=== PATIENT | female | born 1955 | race Caucasian/White ===

== ENCOUNTER → 2016-03-11 | Outpatient (CLI) | payer MEDICARE, MEDICAID ==
[2016-03-11 13:50] LABS: FREE T4 1.43 NG/DL (0.76-1.46)
== END ==
LOC: M WUC 10:19
PROVIDERS: ATTEND Physician Assistant Medical
DX: E89.0 Postprocedural hypothyroidism (principal)

== ENCOUNTER → 2016-04-25 | Outpatient (CLI) | payer MEDICARE, MEDICAID ==
[2016-04-25 13:06] LABS: FREE T4 1.32 NG/DL (0.76-1.46)
== END ==
LOC: M WUC 09:55
PROVIDERS: ATTEND Physician Assistant Medical
DX: E89.0 Postprocedural hypothyroidism (principal)

== ENCOUNTER → 2016-06-10 | Outpatient (CLI) | payer MEDICARE, MEDICAID ==
[2016-06-10 18:37] LABS: THYROXINE (T4) 9.9 UG/DL (4.5-12.0)
== END ==
LOC: M WUC 11:31
PROVIDERS: ATTEND Physician Assistant Medical
DX: E89.0 Postprocedural hypothyroidism (principal)

== ENCOUNTER → 2016-07-26 | Outpatient (CLI) | payer MEDICARE, MEDICAID ==
[2016-07-26 13:05] LABS: ALBUMIN 4.2 GM/DL (3.2-5.2); ALBUMIN/GLOBULIN RATIO 1.35 (1.00-1.93); ALKALINE PHOSPHATASE 63 U/L (45-117); ALT/SGPT 40 U/L (12-78); ANION GAP 5 MEQ/L (8-16); AST/SGOT 23 U/L (15-37); BILIRUBIN,TOTAL 0.3 MG/DL (0.2-1.0); BLOOD UREA NITROGEN 10 MG/DL (7-18); CALCIUM LEVEL 8.9 MG/DL (8.5-10.1); CARBON DIOXIDE LEVEL 29 MEQ/L (21-32); CHLORIDE LEVEL 106 MEQ/L (98-107); CREATININE FOR GFR 0.71 MG/DL (0.55-1.02); GLOMERULAR FILTRATION RATE > 60.0 (>51); GLUCOSE, FASTING 137 MG/DL (70-105); POTASSIUM SERUM 4.2 MEQ/L (3.5-5.1); SODIUM LEVEL 140 MEQ/L (136-145); TOTAL PROTEIN 7.3 GM/DL (6.4-8.2)
== END ==
LOC: M WUC 09:37
PROVIDERS: ATTEND Nurse Practitioner Family
DX: E55.9 Vitamin D deficiency, unspecified (principal); E78.5 Hyperlipidemia, unspecified

== ENCOUNTER → 2016-10-04 | Outpatient (CLI) | payer MEDICARE, MEDICAID ==
[2016-10-04 13:53] LABS: FREE T4 1.42 NG/DL (0.76-1.46)
== END ==
LOC: M WUC 09:40
PROVIDERS: ATTEND Internal Medicine Endocrinology, Diabetes & Metabolism
DX: E89.0 Postprocedural hypothyroidism (principal)

== ENCOUNTER → 2017-03-05 | Outpatient (CLI) | payer MEDICARE, MEDICAID ==
[2017-03-05 18:33] LABS: FREE T4 1.16 NG/DL (0.76-1.46)
[2017-03-05 18:33] LABS: THYROID STIMULATING HORMONE 0.705 uIU/ML (0.358-3.740)
== END ==
LOC: M WUC 12:04
DX: E89.0 Postprocedural hypothyroidism (principal)
CPT/HCPCS: 84443

== ENCOUNTER → 2017-04-23 | Outpatient (CLI) | payer MEDICARE, MEDICAID | LOC: M WHC 09:55 | DX: Z12.31 Encounter for screening mammogram for malignant neoplasm of breast (principal) | CPT/HCPCS: 77067 ==

== ENCOUNTER → 2017-06-18 | Outpatient (CLI) | payer MEDICARE, MEDICAID ==
[2017-06-18 12:49] LABS: TOTAL 25(OH) VITAMIN D 13.7 NG/ML (30.0-100.0)
[2017-06-18 13:23] LABS: ALBUMIN 4.2 GM/DL (3.2-5.2); ALKALINE PHOSPHATASE 68 U/L (45-117); ALT/SGPT 31 U/L (12-78); ANION GAP 7 MEQ/L (8-16); AST/SGOT 15 U/L (7-37); BILIRUBIN,TOTAL 0.3 MG/DL (0.2-1.0); BLOOD UREA NITROGEN 11 MG/DL (7-18); CALCIUM LEVEL 8.7 MG/DL (8.8-10.2); CARBON DIOXIDE LEVEL 28 MEQ/L (21-32); CHLORIDE LEVEL 106 MEQ/L (98-107); CHOLESTEROL LEVEL 224 MG/DL (<200); CHOLESTEROL RISK RATIO 4.148 (<5); CREATININE FOR GFR 0.89 MG/DL (0.55-1.30); GLOMERULAR FILTRATION RATE > 60.0 (>45); GLUCOSE, FASTING 209 MG/DL (70-100); HDL CHOLESTEROL 54 MG/DL (>40); NON-HDL-C 170 MG/DL; POTASSIUM SERUM 4.7 MEQ/L (3.5-5.1); SODIUM LEVEL 141 MEQ/L (136-145); TOTAL PROTEIN 7.2 GM/DL (6.4-8.2); TRIGLYCERIDES LEVEL 275 MG/DL (<150)
== END ==
LOC: M WUC 10:12
DX: E78.5 Hyperlipidemia, unspecified (principal); E55.9 Vitamin D deficiency, unspecified
CPT/HCPCS: 80053

== ENCOUNTER → 2017-07-03 | Outpatient (CLI) | payer MEDICARE, MEDICAID ==
[2017-07-03 17:20] LABS: ANION GAP 6 MEQ/L (8-16); BLOOD UREA NITROGEN 13 MG/DL (7-18); CARBON DIOXIDE LEVEL 29 MEQ/L (21-32); CHLORIDE LEVEL 106 MEQ/L (98-107); GLOMERULAR FILTRATION RATE > 60.0 (>45); GLUCOSE, FASTING 114 MG/DL (70-100); POTASSIUM SERUM 4.6 MEQ/L (3.5-5.1); SODIUM LEVEL 141 MEQ/L (136-145)
[2017-07-03 17:27] LABS: ESTIMATED AVERAGE GLUCOSE 180 MG/DL (60-110); HEMOGLOBIN A1c 7.9 %
== END ==
LOC: M WUC 13:32
DX: R73.01 Impaired fasting glucose (principal)
CPT/HCPCS: 83036

== ENCOUNTER 2017-08-27 10:19 | Day surgery (SDC) | payer MEDICARE, MEDICAID ==
[~2017-08-27 10:19] MED LIST: LIDOCAINE 2% MDV 20 ML VIAL As Ordered; PROPOFOL 200 MG/20 ML VIAL As Ordered
[2017-08-27] MEDS: NS 1,000 ML IV (11:18)
[2017-08-27] MEDS ORDERED: PROPOFOL 200 MG/20 ML VIAL As Ordered (13:08)
== END 2017-08-27 13:55 | disposition home or self-care (01) ==
LOC: M OPP 10:19
DX: Z12.11 Encounter for screening for malignant neoplasm of colon (principal); K63.5 Polyp of colon; D12.3 Benign neoplasm of transverse colon; D12.2 Benign neoplasm of ascending colon; Z86.010 Personal history of colon polyps; K57.30 Diverticulosis of large intestine without perforation or abscess without bleeding; K44.9 Diaphragmatic hernia without obstruction or gangrene; K21.9 Gastro-esophageal reflux disease without esophagitis; E78.5 Hyperlipidemia, unspecified; E07.9 Disorder of thyroid, unspecified; F41.9 Anxiety disorder, unspecified; F32.9 Major depressive disorder, single episode, unspecified; R06.83 Snoring; M19.90 Unspecified osteoarthritis, unspecified site; H91.93 Unspecified hearing loss, bilateral; Z79.84 Long term (current) use of oral hypoglycemic drugs; Z79.899 Other long term (current) drug therapy; Z79.891 Long term (current) use of opiate analgesic; Z88.5 Allergy status to narcotic agent; Z87.891 Personal history of nicotine dependence; Z78.0 Asymptomatic menopausal state
CPT/HCPCS: 45385

== ENCOUNTER → 2017-09-01 | Outpatient (CLI) | payer MEDICARE, MEDICAID ==
[2017-09-01 13:48] LABS: THYROID STIMULATING HORMONE 0.701 uIU/ML (0.358-3.740)
[2017-09-01 13:48] LABS: FREE T4 1.27 NG/DL (0.76-1.46)
== END ==
LOC: M WUC 11:40
DX: E89.0 Postprocedural hypothyroidism (principal)
CPT/HCPCS: 84443

== ENCOUNTER → 2017-09-15 | Outpatient (CLI) | payer MEDICARE, MEDICAID ==
[2017-09-15 16:35] LABS: ALBUMIN 3.7 GM/DL (3.2-5.2); ALBUMIN/GLOBULIN RATIO 1.28 (1.00-1.93); ALKALINE PHOSPHATASE 47 U/L (45-117); ALT/SGPT 30 U/L (12-78); ANION GAP 5 MEQ/L (8-16); AST/SGOT 18 U/L (7-37); BILIRUBIN,TOTAL 0.2 MG/DL (0.2-1.0); BLOOD UREA NITROGEN 10 MG/DL (7-18); CALCIUM LEVEL 8.5 MG/DL (8.8-10.2); CARBON DIOXIDE LEVEL 31 MEQ/L (21-32); CHLORIDE LEVEL 107 MEQ/L (98-107); CREATININE FOR GFR 0.74 MG/DL (0.55-1.30); GLOMERULAR FILTRATION RATE > 60.0 (>45); GLUCOSE, FASTING 97 MG/DL (70-100); POTASSIUM SERUM 5.1 MEQ/L (3.5-5.1); SODIUM LEVEL 143 MEQ/L (136-145); TOTAL PROTEIN 6.6 GM/DL (6.4-8.2)
[2017-09-15 16:51] LABS: HEMATOCRIT 38.1 % (36.0-47.0); HEMOGLOBIN 12.5 g/dl (12.0-15.5); MEAN CORPUSCULAR HEMOGLOBIN 30.8 pg (27.0-33.0); MEAN CORPUSCULAR HGB CONC 32.8 g/dl (32.0-36.5); MEAN CORPUSCULAR VOLUME 93.8 fl (80.0-96.0); PLATELET COUNT, AUTOMATED 191 10^3/uL (150-450); RED BLOOD COUNT 4.06 10^6/uL (4.00-5.40); RED CELL DISTRIBUTION WIDTH 12.1 % (11.5-14.5)
[2017-09-15 17:08] LABS: MALB URINE SIEMENS 12.4 MG/L; MAU/CREAT RATIO 7.7 MCG/MG (0.0-30.0)
== END ==
LOC: M WUC 10:55
DX: R60.0 Localized edema (principal)
CPT/HCPCS: 80053

== ENCOUNTER → 2017-09-22 | Outpatient (REF) | payer MEDICARE, MEDICAID | LOC: M SFHCPLAZ 10:06 | DX: E11.9 Type 2 diabetes mellitus without complications (principal); Z53.8 Procedure and treatment not carried out for other reasons ==

== ENCOUNTER → 2017-09-22 | Outpatient (CLI) | payer MEDICARE, MEDICAID ==
[2017-09-22 16:49] LABS: ESTIMATED AVERAGE GLUCOSE 151 MG/DL (60-110); HEMOGLOBIN A1c 6.9 %
== END ==
LOC: M WUC 11:06
DX: E11.9 Type 2 diabetes mellitus without complications (principal); R05 Cough
CPT/HCPCS: 83036

== ENCOUNTER → 2017-10-01 | Outpatient (CLI) | payer MEDICARE, MEDICAID | LOC: M RAD 09:34 | DX: Z87.891 Personal history of nicotine dependence (principal); Z12.2 Encounter for screening for malignant neoplasm of respiratory organs | CPT/HCPCS: G0297 ==

== ENCOUNTER → 2017-12-25 | Outpatient (CLI) | payer MEDICARE, MEDICAID ==
[2017-12-25 17:45] LABS: ALBUMIN/GLOBULIN RATIO 1.48 (1.00-1.93); ALKALINE PHOSPHATASE 50 U/L (45-117); ALT/SGPT 32 U/L (12-78); ANION GAP 8 MEQ/L (8-16); AST/SGOT 30 U/L (7-37); BILIRUBIN,TOTAL 0.2 MG/DL (0.2-1.0); BLOOD UREA NITROGEN 12 MG/DL (7-18); CALCIUM LEVEL 9.2 MG/DL (8.8-10.2); CARBON DIOXIDE LEVEL 28 MEQ/L (21-32); CHLORIDE LEVEL 106 MEQ/L (98-107); CREATININE FOR GFR 0.83 MG/DL (0.55-1.30); GLOMERULAR FILTRATION RATE > 60.0 (>45); GLUCOSE, FASTING 133 MG/DL (70-100); SODIUM LEVEL 142 MEQ/L (136-145); TOTAL PROTEIN 6.7 GM/DL (6.4-8.2)
[2017-12-25 17:50] LABS: TOTAL 25(OH) VITAMIN D 18.7 NG/ML (30.0-100.0)
[2017-12-25 19:07] LABS: ESTIMATED AVERAGE GLUCOSE 134 MG/DL (60-110); HEMOGLOBIN A1c 6.3 %
== END ==
LOC: M WUC 14:18
DX: E78.5 Hyperlipidemia, unspecified (principal); E11.9 Type 2 diabetes mellitus without complications; E89.0 Postprocedural hypothyroidism; E55.9 Vitamin D deficiency, unspecified
CPT/HCPCS: 84443

== ENCOUNTER → 2018-03-30 | Outpatient (CLI) | payer MEDICARE, MEDICAID ==
[~2018-03-30] MED LIST changes: +DULO1CAP3 PO; +HYDR-4514 PO; +LEVO88TA3 PO; -LIDOCAINE 2% MDV 20 ML VIAL As Ordered; +METF500T13 PO; +OMEP20CA3 PO; -PROPOFOL 200 MG/20 ML VIAL As Ordered; +SIMV20TA2 PO; +TRAZ-163 PO
[2018-03-30 18:23] LABS: HEMOGLOBIN A1c 7.1 %
[2018-03-30 18:24] LABS: ALT/SGPT 23 U/L (12-78); BILIRUBIN,TOTAL 0.2 MG/DL (0.2-1.0); BLOOD UREA NITROGEN 9 MG/DL (7-18); CALCIUM LEVEL 8.6 MG/DL (8.8-10.2); CARBON DIOXIDE LEVEL 30 MEQ/L (21-32); CHLORIDE LEVEL 104 MEQ/L (98-107); CREATININE FOR GFR 0.75 MG/DL (0.55-1.30); GLOMERULAR FILTRATION RATE > 60.0 (>45); GLUCOSE, FASTING 87 MG/DL (70-100); POTASSIUM SERUM 4.7 MEQ/L (3.5-5.1); SODIUM LEVEL 141 MEQ/L (136-145); TOTAL 25(OH) VITAMIN D 35.2 NG/ML (30.0-100.0); TOTAL PROTEIN 6.8 GM/DL (6.4-8.2)
== END ==
LOC: M WUC 11:27
PROVIDERS: ATTEND Nurse Practitioner Family
DX: E89.0 Postprocedural hypothyroidism (principal); E11.9 Type 2 diabetes mellitus without complications; E78.5 Hyperlipidemia, unspecified

== ENCOUNTER → 2018-04-29 | Outpatient (CLI) | payer MEDICARE, MEDICAID ==
--- NOTE | 2018-04-29 13:25 | REP ---
Low-dose lung screening CT: Comparison is a 2017. The studies performed without IV contrast. The images are presented at lung windowing only. There is a 6 mm nodule peripherally in the right upper lobe on image 37, unchanged from the parents study. The lack of interval change converts this lesion to a category 2 lesion with the probability of malignancy less than 1%. There are no new lung nodules. There are no infiltrates. There are no pleural effusions. Impression: Category 2 low-dose lung screening chest CT. Probability of malignancy is less than 1%. Annual follow-up low-dose lung screening CT is recommended. Electronically Signed by Santos Rodrigez MD 04/29/2018 01:17 P
== END ==
LOC: M RAD 09:26
PROVIDERS: ATTEND Nurse Practitioner Family
DX: Z87.891 Personal history of nicotine dependence (principal)

== ENCOUNTER → 2018-05-13 | Outpatient (CLI) | payer MEDICARE, MEDICAID | LOC: M WUC 09:42 | PROVIDERS: ATTEND Nurse Practitioner Family | DX: E89.0 Postprocedural hypothyroidism (principal) ==

== ENCOUNTER → 2018-06-11 | Outpatient (REF) | payer MEDICARE, MEDICAID ==
[2018-06-13 15:08] LABS: HPV HYBRID CAPTURE II Negative (Negative)
== END ==
LOC: M SFHCWAGY 10:41
PROVIDERS: ATTEND Nurse Practitioner Women's Health
DX: Z12.4 Encounter for screening for malignant neoplasm of cervix (principal); N95.2 Postmenopausal atrophic vaginitis
CPT/HCPCS: 87624; G0123

== ENCOUNTER → 2018-06-11 | Outpatient (CLI) | payer MEDICARE, MEDICAID ==
--- NOTE | 2018-06-11 11:36 | REPMRS ---
Patient History The patient states she had a clinical breast exam in 05/2018. No known family history of cancer. 3D TOMOSYNTHESIS WAS PERFORMED. Digital Woman Screen Mammo: June 11, 2018 - Exam #: [id number] Bilateral CC and MLO view(s) were taken. Technologist: Salud Martinez, Technologist Prior study comparison: April 23, 2017, digital woman screen mammo performed at [facility]. January 09, 2016, digital woman screen mammo performed at [facility]. FINDINGS: There are scattered fibroglandular densities. There has been no change in the appearance of the mammogram from the prior studies. There is a mild amount of residual fibroglandular tissue which is fairly symmetric. There is no interval development of dominant mass, architectural distortion, or clustered microcalcification suggestive of malignancy. Assessment: BI-RADS/ACR category 1 mammogram. Negative Mammogram. Recommendation Routine screening mammogram in 1 year (for women over age 40). This mammogram was interpreted with the aid of an FDA-approved computer-aided dectection system. Electronically Signed By: Santos Ramos MD 06/11/18 [id number]
== END ==
LOC: M WHC 10:40
PROVIDERS: ATTEND Nurse Practitioner Family
DX: Z01.419 Encounter for gynecological examination (general) (routine) without abnormal findings (principal); Z12.31 Encounter for screening mammogram for malignant neoplasm of breast
CPT/HCPCS: 77063; 77067; 87624; G0101; G0123

== ENCOUNTER → 2018-06-22 | Outpatient (CLI) | payer MEDICARE, MEDICAID ==
[2018-06-22 17:27] LABS: ALBUMIN 3.6 GM/DL (3.2-5.2); ALT/SGPT 29 U/L (12-78); BILIRUBIN,TOTAL 0.5 MG/DL (0.2-1.0); BLOOD UREA NITROGEN 11 MG/DL (7-18); CALCIUM LEVEL 7.9 MG/DL (8.8-10.2); CARBON DIOXIDE LEVEL 29 MEQ/L (21-32); CHLORIDE LEVEL 106 MEQ/L (98-107); CHOLESTEROL LEVEL 193 MG/DL (<200); CHOLESTEROL RISK RATIO 3.112 (<5); CREATININE FOR GFR 0.72 MG/DL (0.55-1.30); GLOMERULAR FILTRATION RATE > 60.0 (>45); GLUCOSE, FASTING 87 MG/DL (70-100); HDL CHOLESTEROL 62 MG/DL (>40); LDL CHOLESTEROL 103 MG/DL (<100); NON-HDL-C 131 MG/DL; POTASSIUM SERUM 4.3 MEQ/L (3.5-5.1); SODIUM LEVEL 140 MEQ/L (136-145); TOTAL PROTEIN 6.8 GM/DL (6.4-8.2); TRIGLYCERIDES LEVEL 138 MG/DL (<150)
[2018-06-22 17:35] LABS: TOTAL 25(OH) VITAMIN D 24.1 NG/ML (30.0-100.0)
[2018-06-22 17:58] LABS: HEMOGLOBIN A1c 6.8 %
== END ==
LOC: M WUC 13:12
PROVIDERS: ATTEND Nurse Practitioner Family
DX: E11.9 Type 2 diabetes mellitus without complications (principal); E78.5 Hyperlipidemia, unspecified; E89.0 Postprocedural hypothyroidism; E55.9 Vitamin D deficiency, unspecified

== ENCOUNTER → 2018-06-24 | Outpatient (REF) | payer MEDICARE, MEDICAID ==
[2018-06-24 14:08] LABS: MAU/CREAT RATIO 13.5 MCG/MG (0.0-30.0)
== END ==
LOC: M LAB REF 12:33
PROVIDERS: ATTEND Nurse Practitioner Family
DX: E11.9 Type 2 diabetes mellitus without complications (principal); E78.5 Hyperlipidemia, unspecified; E89.0 Postprocedural hypothyroidism; E55.9 Vitamin D deficiency, unspecified

== ENCOUNTER 2018-08-20 11:19 | Emergency (ER) | payer MEDICARE, MEDICAID ==
[~2018-08-20] VITALS: Ht 154.9 cm; Wt 78.4 kg
[~2018-08-20 11:19] MED LIST changes: -DULO1CAP3 PO; +DULO1CAP6 PO; +OMEP1CAP73 PO; -OMEP20CA3 PO; -SIMV20TA2 PO; +SIMV20TA22 PO; -TRAZ-163 PO; +TRAZ-257 PO
[2018-08-20 12:00] LABS: BASO % 0.6 % (0.0-1.0); EOS # 0.1 10^3/uL (0.0-0.50); EOS % 1.7 % (0.0-3.0); HEMATOCRIT 39.9 % (36.0-47.0); HEMOGLOBIN 13.5 g/dl (12.0-15.5); LYMPH # 1.5 10^3/uL (1.5-4.5); LYMPH % 21.1 % (24.0-44.0); MEAN CORPUSCULAR HGB CONC 33.8 g/dl (32.0-36.5); MEAN CORPUSCULAR VOLUME 91.5 fl (80.0-96.0); MONO # 0.7 10^3/uL (0.0-0.8); NEUTROPHILS # 4.6 10^3/uL (1.8-7.7); NEUTROPHILS % 66.3 % (36.0-66.0); PLATELET COUNT, AUTOMATED 209 10^3/uL (150-450); RED BLOOD COUNT 4.36 10^6/uL (4.00-5.40); WHITE BLOOD COUNT 6.9 10^3/uL (4.0-10.0)
[2018-08-20] MEDS ORDERED: KETOROLAC 30 MG/ML VIAL (J1885) IV ONE (12:15)
[2018-08-20] MEDS ORDERED: ONDANSETRON 4MG/2ML VIAL (J2405) IV ONE (12:15)
[2018-08-20 12:30] LABS: ALBUMIN 4.2 GM/DL (3.2-5.2); BILIRUBIN,DIRECT 0.1 MG/DL (0.0-0.2); BILIRUBIN,TOTAL 0.3 MG/DL (0.2-1.0); CALCIUM LEVEL 9.1 MG/DL (8.8-10.2); CREATININE FOR GFR 1.06 MG/DL (0.55-1.30); GLOMERULAR FILTRATION RATE 56.1 (>45); TOTAL PROTEIN 7.2 GM/DL (6.4-8.2)
--- NOTE | 2018-08-20 12:43 | REP ---
Clinical: Left flank pain. Technique: Axial noncontrast images from the lung bases to the pubic symphysis with coronal and sagittal re-formations. Findings: Mild acute left-sided obstructive uropathy with perinephric stranding and hydroureteronephrosis secondary to a 3 mm obstructing calculus in the proximal ureter (images 75-76) at the mid L4 vertebral body level. The kidneys/ureters and bladder are otherwise unremarkable and without further nephroureterolithiasis. Liver, spleen, pancreas, gallbladder, and bilateral adrenal glands are normal. The enteric system is without obstruction or acute inflammatory process. Normal terminal ileum and appendix identified in the right lower quadrant. Pelvis demonstrates collapsed normal bladder and age-appropriate uterus/adnexa. No ascites. No free air. No adenopathy. Atherosclerotic changes to the aorta and vasculature noted. Skeletal structures demonstrate degenerative changes and prior right hip fixation. Impression: 1. Mild acute left-sided obstructive uropathy with a 3 mm calculus in the proximal/mid left ureter. No further urinary tract pathology appreciated. Electronically Signed by Jayme Lao MD 08/20/2018 12:35 P
[2018-08-20] MEDS ORDERED: ZOFR4TAB16 PO (12:52)
[2018-08-20 13:02] VITALS: BP 121/56
== END 2018-08-20 13:11 | disposition home or self-care (01) ==
LOC: M ED 11:19
DX: N21.1 Calculus in urethra (principal); E11.9 Type 2 diabetes mellitus without complications; Z87.891 Personal history of nicotine dependence; Z82.49 Family history of ischemic heart disease and other diseases of the circulatory system
CPT/HCPCS: 74176; 80048; 80076; 81001; 83690; 85025; 96374; 96375; 99284; J1885; J2405

== ENCOUNTER → 2018-10-22 | Outpatient (CLI) | payer MEDICARE, MEDICAID ==
[~2018-10-22] MED LIST changes: -OMEP1CAP73 PO; +OMEP20CA4 PO; +SIMV20TA2 PO; -SIMV20TA22 PO; +TRAZ-163 PO; -TRAZ-257 PO; +ZOFR4TAB16 PO
[2018-10-22 14:26] LABS: ALBUMIN 3.9 GM/DL (3.2-5.2); ALT/SGPT 23 U/L (12-78); BILIRUBIN,TOTAL 0.3 MG/DL (0.2-1.0); BLOOD UREA NITROGEN 11 MG/DL (7-18); CALCIUM LEVEL 9.2 MG/DL (8.8-10.2); CARBON DIOXIDE LEVEL 27 MEQ/L (21-32); CHLORIDE LEVEL 105 MEQ/L (98-107); CREATININE FOR GFR 0.72 MG/DL (0.55-1.30); GLOMERULAR FILTRATION RATE > 60.0 (>45); GLUCOSE, FASTING 80 MG/DL (70-100); POTASSIUM SERUM 4.5 MEQ/L (3.5-5.1); SODIUM LEVEL 140 MEQ/L (136-145); TOTAL 25(OH) VITAMIN D 27.5 NG/ML (30.0-100.0); TOTAL PROTEIN 6.9 GM/DL (6.4-8.2)
[2018-10-22 14:42] LABS: HEMOGLOBIN A1c 6.2 %
== END ==
LOC: M WUC 11:04
PROVIDERS: ATTEND Nurse Practitioner Family
DX: E11.9 Type 2 diabetes mellitus without complications (principal); E78.5 Hyperlipidemia, unspecified; E89.0 Postprocedural hypothyroidism; Z79.899 Other long term (current) drug therapy

== ENCOUNTER → 2018-12-09 | Outpatient (CLI) | payer MEDICARE, MEDICAID ==
[2018-12-09 12:08] LABS: HEMATOCRIT 38.7 % (36.0-47.0); HEMOGLOBIN 12.5 g/dl (12.0-15.5); MEAN CORPUSCULAR HEMOGLOBIN 31.3 pg (27.0-33.0); MEAN CORPUSCULAR HGB CONC 32.3 g/dl (32.0-36.5); MEAN CORPUSCULAR VOLUME 96.8 fl (80.0-96.0); PLATELET COUNT, AUTOMATED 213 10^3/uL (150-450); WHITE BLOOD COUNT 5.3 10^3/uL (4.0-10.0)
[2018-12-09 12:19] LABS: INR 0.94; PARTIAL THROMBOPLASTIN TIME 26.4 SECONDS (25.0-38.4); PROTHROMBIN TIME 12.2 SECONDS (11.8-14.0)
[2018-12-09 12:24] LABS: FREE T4 0.96 NG/DL (0.76-1.46); THYROID STIMULATING HORMONE 11.8 uIU/ML (0.358-3.740)
== END ==
LOC: M WUC 09:13
PROVIDERS: ATTEND Nurse Practitioner Family
DX: R23.8 Other skin changes (principal); E89.0 Postprocedural hypothyroidism

== ENCOUNTER → 2019-01-20 | Outpatient (CLI) | payer MEDICARE, MEDICAID ==
[~2019-01-20] MED LIST changes: -SIMV20TA2 PO; +SIMV20TA22 PO
--- NOTE | 2019-01-20 13:26 | REP ---
RENAL AND BLADDER ULTRASOUND: Real-time sonographic evaluation of the kidneys performed and demonstrates both kidneys to be normal in size and echotexture, right kidney measuring 10.9 x 5.2 x 4.7 cm and left kidney 11.0 x 4.6 x 5.3 cm. There is no right hydronephrosis. There appears to be mild left hydronephrosis. No renal mass is seen. Urinary bladder measures 8.0 x 8.8 x 6.3 cm for a total volume of 290 mL. Postvoid residual is 28 mL. Bilateral ureteral jets are seen in the urinary bladder with Doppler color evaluation. No bladder mass or calculus is seen. IMPRESSION: Mild left hydronephrosis appears similar to prior CT exam 08/20/2018. No renal or bladder stones seen. There are bilateral ureteral jets in the urinary bladder with Doppler color evaluation. Postvoid residual 9.6%, with mild residual after voiding. Electronically Signed by Santos Ramos MD 01/20/2019 01:58 P
--- NOTE | 2019-01-20 13:30 | REP ---
Clinical: Pelvic and bladder pain. Technique: Transabdominal pelvic ultrasound followed by transvaginal examination for better evaluation of the endometrium and adnexa. Findings: Bladder is normal and measures 9.0 x 11.4 x 6.5 cm. Heterogeneous anteverted uterus measures 4.2 x 2.0 x 3.2 cm. Endometrial complex measures 2 mm thickness. Small scattered echogenic myometrial foci are nonspecific and likely related to chronic change and small calcifications. No discrete uterine or endometrial abnormality otherwise noted. Ovaries not visualized. No pelvic fluid or adnexal mass lesion. Impression: Essentially age-appropriate uterus and bladder. Ovaries not visualized. Electronically Signed by Jayme Lao MD 01/20/2019 01:21 P
== END ==
LOC: M RAD 10:36
PROVIDERS: ATTEND Family Medicine
DX: N13.30 Unspecified hydronephrosis (principal); R10.2 Pelvic and perineal pain; Z87.442 Personal history of urinary calculi

== ENCOUNTER → 2019-01-27 | Outpatient (REF) | payer MEDICARE, MEDICAID ==
[~2019-01-27] MED LIST changes: +OMEP-172 PO; -OMEP20CA4 PO
[2019-01-27 13:19] LABS: APPEARANCE, URINE MANUAL CLEAR (CLEAR); COLOR, URINE MANUAL YELLOW (YELLOW)
[2019-01-27 13:20] LABS: BILIRUBIN, URINE MANUAL NEGATIVE (NEGATIVE); BLOOD URINE MANUAL NEGATIVE (NEGATIVE); GLUCOSE, URINE (UA) MANUAL NEGATIVE (NEGATIVE); KETONE, URINE MANUAL NEGATIVE (NEGATIVE); LEUKOCYTE ESTERASE, URINE MAN NEGATIVE (NEGATIVE); NITRITE, URINE MANUAL NEGATIVE (NEGATIVE); PROTEIN, URINE MANUAL NEGATIVE (NEGATIVE); UROBILINOGEN, URINE MANUAL NORMAL (NORMAL)
== END ==
LOC: M SMT 12:47
PROVIDERS: ATTEND Nurse Practitioner Women's Health
DX: N13.2 Hydronephrosis with renal and ureteral calculous obstruction (principal)
CPT/HCPCS: 81002; 87086; G0463

== ENCOUNTER → 2019-02-18 | Outpatient (REF) | payer MEDICARE, MEDICAID ==
[~2019-02-18] MED LIST changes: -OMEP-172 PO; +OMEP1CAP73 PO; -TRAZ-163 PO; +TRAZ-257 PO
[2019-02-18 14:27] LABS: ALBUMIN 3.8 GM/DL (3.2-5.2); ALT/SGPT 22 U/L (12-78); BILIRUBIN,TOTAL 0.2 MG/DL (0.2-1.0); BLOOD UREA NITROGEN 12 MG/DL (7-18); CALCIUM LEVEL 8.9 MG/DL (8.8-10.2); CARBON DIOXIDE LEVEL 29 MEQ/L (21-32); CHLORIDE LEVEL 106 MEQ/L (98-107); CREATININE FOR GFR 0.84 MG/DL (0.55-1.30); FREE T4 1.03 NG/DL (0.76-1.46); GLOMERULAR FILTRATION RATE > 60.0 (>45); GLUCOSE, FASTING 90 MG/DL (70-100); POTASSIUM SERUM 4.8 MEQ/L (3.5-5.1); SODIUM LEVEL 142 MEQ/L (136-145); TOTAL 25(OH) VITAMIN D 33.7 NG/ML (30.0-100.0)
[2019-02-18 14:42] LABS: HEMOGLOBIN A1c 6.4 %
[2019-02-18 14:48] LABS: MAU/CREAT RATIO 20.5 MCG/MG (0.0-30.0)
== END ==
LOC: M SFHCPLAZ 11:25
PROVIDERS: ATTEND Nurse Practitioner Family
DX: E11.9 Type 2 diabetes mellitus without complications (principal); E89.0 Postprocedural hypothyroidism; E55.9 Vitamin D deficiency, unspecified
CPT/HCPCS: 36415; 80053; 82043; 82306; 83036; 84439; 84443; G0463

== ENCOUNTER → 2019-03-05 | Outpatient (CLI) | payer MEDICARE, MEDICAID ==
--- NOTE | 2019-03-05 16:06 | REP ---
CT ABDOMEN AND PELVIS WITHOUT CONTRAST: CT abdomen and pelvis performed without oral or IV contrast. Sagittal and coronal reconstruction images are performed. COMPARISON: 08/20/2018. Visualized lung bases demonstrate no infiltrate. The liver, spleen, adrenals, pancreas and kidneys are grossly unremarkable. No renal or ureteral calculus is seen and there is no hydroureteronephrosis. Urinary bladder is very mildly distended with no gross calculus. There is mild atherosclerotic calcification of the abdominal aorta without aneurysm. No adenopathy is seen. There is no free air or free fluid. No bowel wall thickening is seen. The appendix is normal. Small calcified fibroadenoma is seen in the fundus of the uterus. No pelvic mass is seen. There is metallic internal fixation in the proximal right femur. The right femoral head demonstrates heterogeneous sclerotic and cystic change. There is fragmentation centrally of the femoral head. Findings are consistent with advanced avascular necrosis. There is severe arthritic change at the right hip joint with diffuse joint space narrowing, subchondral sclerosis and spurring. Mild arthritic change is seen at the left hip. There is a bone island in the lateral aspect of the left femoral head. IMPRESSION: No renal, ureteral or bladder calculus and no hydroureteronephrosis. Small calcified fibroid in the fundus of the uterus. Findings of the right femoral head compatible with advanced avascular necrosis, with fragmentation of the central aspect of the femoral head. Severe arthritic change at the right hip joint. Electronically Signed by Santos Ramos MD 03/10/2019 09:45 A
== END ==
LOC: M RAD 10:13
PROVIDERS: ATTEND Nurse Practitioner Women's Health
DX: N13.2 Hydronephrosis with renal and ureteral calculous obstruction (principal); D25.9 Leiomyoma of uterus, unspecified

== ENCOUNTER → 2019-05-03 | Outpatient (CLI) | payer MEDICARE, MEDICAID ==
--- NOTE | 2019-05-03 10:21 | REP ---
CT CHEST WITHOUT CONTRAST: LOW-DOSE SCREENING EXAM. HISTORY: Lung nodule. Comparison chest CT studies are reviewed from April 29 2018, October 01, 2017. CT FINDINGS: The previously noted right upper lobe nodule is again seen on page 34 of 101 in series 201 of today's study. This is unchanged from the prior study of October 01, 2017. It measures 5 mm in greatest diameter today. There is mild linear fibrosis in the lingula which is unchanged. No new pulmonary nodule is appreciated. IMPRESSION: Stable lung-RADS category [address] screening study recommended in 1 year. Electronically Signed by Dorian Sanchez MD 05/03/2019 12:35 P
== END ==
LOC: M RAD 09:40
PROVIDERS: ATTEND Nurse Practitioner Family
DX: R91.1 Solitary pulmonary nodule (principal); Z87.891 Personal history of nicotine dependence

== ENCOUNTER → 2019-05-18 | Outpatient (CLI) | payer MEDICARE, MEDICAID ==
[2019-05-18 10:48] LABS: BLOOD UREA NITROGEN 15 MG/DL (7-18); CALCIUM LEVEL 8.9 MG/DL (8.8-10.2); CARBON DIOXIDE LEVEL 29 MEQ/L (21-32); CHLORIDE LEVEL 105 MEQ/L (98-107); CREATININE FOR GFR 0.75 MG/DL (0.55-1.30); GLOMERULAR FILTRATION RATE > 60.0 (>45); GLUCOSE, FASTING 125 MG/DL (70-100); POTASSIUM SERUM 4.5 MEQ/L (3.5-5.1); SODIUM LEVEL 141 MEQ/L (136-145)
[2019-05-18 10:49] LABS: ALBUMIN 3.7 GM/DL (3.2-5.2); ALT/SGPT 25 U/L (12-78); BILIRUBIN,TOTAL 0.2 MG/DL (0.2-1.0); CHOLESTEROL LEVEL 212 MG/DL (<200); CHOLESTEROL RISK RATIO 3.261 (<5); FREE T4 1.07 NG/DL (0.76-1.46); HDL CHOLESTEROL 65 MG/DL (>40); LDL CHOLESTEROL 115 MG/DL (<100); NON-HDL-C 147 MG/DL; TOTAL PROTEIN 6.7 GM/DL (6.4-8.2); TRIGLYCERIDES LEVEL 160 MG/DL (<150)
[2019-05-18 10:51] LABS: TOTAL 25(OH) VITAMIN D 25.9 NG/ML (30.0-100.0)
[2019-05-18 10:53] LABS: HEMOGLOBIN A1c 6.5 %
== END ==
LOC: M WUC 08:28
PROVIDERS: ATTEND Nurse Practitioner Family
DX: E11.9 Type 2 diabetes mellitus without complications (principal); E78.5 Hyperlipidemia, unspecified; E89.0 Postprocedural hypothyroidism; E55.9 Vitamin D deficiency, unspecified; Z79.899 Other long term (current) drug therapy

== ENCOUNTER → 2019-06-22 | Outpatient (CLI) | payer MEDICARE, MEDICAID ==
[~2019-06-22] MED LIST changes: +K 10100T PO; +LEVO100T5 PO
== END ==
LOC: M LABSMTC 09:35
PROVIDERS: ATTEND Anesthesiology
DX: Z01.818 Encounter for other preprocedural examination (principal); Z11.59 Encounter for screening for other viral diseases

== ENCOUNTER 2019-06-25 06:08 | Day surgery (SDC) | payer MEDICARE, MEDICAID ==
[~2019-06-25] VITALS: Ht 152.4 cm; Wt 80.3 kg
[~2019-06-25 06:08] MED LIST changes: +LIDOCAINE 1% MDV 20ML VIAL SQ PRN
[2019-06-25] MEDS ORDERED: MIDAZOLAM INJ 2MG/2ML VIAL (J2250 PER 1MG) As Ordered ONE (06:56)
[2019-06-25] MEDS ORDERED: ONDANSETRON 4MG/2ML VIAL As Ordered ONE (06:57)
[2019-06-25] MEDS ORDERED: propofoL 200 MG/20 ML VIAL As Ordered ONE (06:57)
[2019-06-25] MEDS ORDERED: SUGAMMADEX SODIUM 500 MG/5 ML VIAL (BRIDION) As Ordered ONE (06:57)
[2019-06-25] MEDS ORDERED: dexameTHASONE 4 MG/ML 1ML VIAL (J1100 PER 1MG) As Ordered ONE (06:57)
[2019-06-25] MEDS ORDERED: ROCURONIUM BROMIDE 50 MG/5 ML VIAL As Ordered ONE ×2 (06:57→08:53)
[2019-06-25] MEDS ORDERED: LIDOCAINE 2% 100MG/5ML SDV (FOR ANES.) As Ordered ONE (06:57)
[2019-06-25] MEDS ORDERED: fentaNYL 100 MCG/2 ML INJECTION (J3010) As Ordered ONE ×4 (06:57→10:58)
[2019-06-25] MEDS ORDERED: LR 1,000 ML IV ONE (07:00)
[2019-06-25] MEDS ORDERED: ePHEDrine SULFATE 25 MG/5 ML(5MG/ML) SYRINGE As Ordered ONE (07:02)
[2019-06-25] MEDS ORDERED: PHENYLephrine HCL 500 MCG/5 ML (100MCG/ML) SYRINGE (J2370) As Ordered ONE (07:02)
[2019-06-25] MEDS ORDERED: ceFAZolin 1GM VIAL (J0690 PER 500MG) As Ordered ONE (07:10)
[2019-06-25] MEDS ORDERED: HYDROMORPHONE HCL 0.5 MG/ 0.5 ML SYRINGE (J1170 PER 1) IV PRN ×3 (07:15→10:30)
[2019-06-25] MEDS ORDERED: ceFAZolin SOD 2 GM in IV 1 EA IV ONE (07:15)
[2019-06-25] MEDS ORDERED: ACETAMINOPHEN 1000MG 100ML IV BTL (OFIRMEV) (J0131 PER 10MG) As Ordered ONE (08:15)
[2019-06-25] MEDS ORDERED: GLYCOPYRROLATE INJ 0.2 MG/ML 2 ML VIAL As Ordered ONE (08:43)
[2019-06-25] MEDS ORDERED: flumazeniL 0.5 MG/5 ML VIAL As Ordered ONE (09:52)
[2019-06-25] MEDS: fentaNYL 100 MCG/2 ML INJECTION (J3010) IV PRN ×6 (10:17→11:09)
[2019-06-25] MEDS: PERCOCET 5MG/325MG TAB PO PRN ×2 (10:27→11:15)
[2019-06-25] MEDS ORDERED: LR 1,000 ML IV SCH (10:30)
[2019-06-25] MEDS ORDERED: ONDANSETRON 4MG/2ML VIAL IV PRN (10:30)
--- NOTE | 2019-06-25 11:58 | REP ---
RIGHT HIP TWO VIEWS: Two views of the right hip performed. COMPARISON: 04/02/2012. There has been removal of the intramedullary carter and anchor from the right femur. There is no acute fracture or dislocation. There are severe arthritic changes at the right hip joint with moderate diffuse joint space narrowing and irregularity of the articulating surfaces. There is a moderate degree of subchondral sclerosis and cystic change as well as diffuse spurring. Metallic skin agustin are seen laterally. Electronically Signed by Santos Ramos MD 06/25/2019 01:41 P
[2019-06-25 14:26] VITALS: BP 122/63
--- NOTE | 2019-06-28 11:35 | RO ---
DATE OF PROCEDURE: 06/25/2019 PREOPERATIVE DIAGNOSES: 1. Retained cephalomedullary femoral nail, right femur. 2. Osteoarthritis of the right hip. POSTOPERATIVE DIAGNOSES: 1. Retained cephalomedullary femoral nail, right femur. 2. Osteoarthritis of the right hip. PROCEDURE: Removal of cephalomedullary femoral nail, right femur. SURGEON: Dr. Scotty Dent SLOTTER OPERATOR: WENDY Anglees ANESTHESIA: General endotracheal anesthesia. COMPLICATIONS: None. SPECIMENS: None. ESTIMATED BLOOD LOSS: 75 mL. DESCRIPTION OF PROCEDURE: Antibiotics were given intravenously, preoperatively. A spinal anesthetic was attempted but was unsuccessful; thus a general endotracheal tube anesthetic was established. Then, she was placed in a lateral decubitus position on a beanbag on the Liam table. The right hip was then carefully prepped and draped in the usual sterile fashion after appropriate time-out. We first addressed the proximal end of the nail by making a small incision through the previous scar using the Bovie cautery to coagulate crossing vessels down through the tensor fascia, then down to the gluteus medius, split that, then identified the identified the trochanter. We took some time to identify the tip of the nail because it was encased in bone. I used a combination of small and large rongeurs and Bovie cautery to eventually identify the tip of the nail proximally. The fibrous tissue from within the femoral nail was removed and there was bolt. I was able to thread in and remove the device. We then turned our attention to the cephalomedullary implant by making a small longitudinal incision through the previous scar more distally and laterally. Then, we used a Bovie cautery to coagulate the crossing vessels down through the tensor fascia, which was then divided. Then, we identified the end of the cephalomedullary implant. We cleaned the threads and removed all the fibrous tissue, and then the extractor device was threaded into position. Then, using the slap hammer there with some repeated blows gently it was removed. Next, we turned our attention to the distal interlock screws. The previous longitudinal incision was utilized distally. Bovie cautery was used to coagulate crossing vessels to the tensor fascia. Then, the two screws were identified and then removed sequentially. It did require quite a bit of force to unscrew the screws but eventually they were removed. We then turned our attention back to the proximal femur and made sure that the extraction device was inserted properly at its proper depth. Then, we applied the extension carter and then the slap hammer, and then with gentle successful blows eventually the carter was removed without difficulty. We copiously irrigated all the wounds several times, then closed the deep tensor fascia proximally with interrupted #1 PDS sutures. The tensor fascia was closed laterally of the cephalomedullary implanted incision with interrupted #1 PDS sutures as well as the tensor fascia distally. Once the tensor had been closed, the rest of the subdermal tissues were closed with interrupted #2-0 PDS and agustin were used to the skin covered by an Optifoam. She was then turned supine, then awakened from general endotracheal tube anesthesia after having tolerated the procedure well, then transferred to the to the recovery room in stable condition. There were no intraoperative complications. Ms. Kristin Luna was critical to the success of this difficult surgery by helping with appropriate soft tissue retraction, helped to manipulate the leg as needed, helped to close the wound, helped to position the patient amongst many other tasks to allow me to perform the operation smoothly, efficiently and safely.
== END 2019-06-25 16:10 | disposition home or self-care (01) ==
LOC: M SDC 06:08
PROVIDERS: ATTEND Orthopaedic Surgery
DX: Z47.2 Encounter for removal of internal fixation device (principal); K21.9 Gastro-esophageal reflux disease without esophagitis; E55.9 Vitamin D deficiency, unspecified; E78.5 Hyperlipidemia, unspecified; E89.0 Postprocedural hypothyroidism; E11.9 Type 2 diabetes mellitus without complications; L30.9 Dermatitis, unspecified; G89.29 Other chronic pain; G47.09 Other insomnia; Z79.84 Long term (current) use of oral hypoglycemic drugs; Z79.899 Other long term (current) drug therapy; Z87.891 Personal history of nicotine dependence; Z88.5 Allergy status to narcotic agent
CPT/HCPCS: 20680; 73502; J0131; J0690; J1100; J2250; J2370; J2405; J3010

== ENCOUNTER → 2019-08-17 | Outpatient (CLI) | payer MEDICARE, MEDICAID ==
[~2019-08-17] MED LIST changes: -LIDOCAINE 1% MDV 20ML VIAL SQ PRN
[2019-08-17 13:11] LABS: ALBUMIN 3.8 GM/DL (3.2-5.2); ALT/SGPT 28 U/L (12-78); BILIRUBIN,TOTAL 0.2 MG/DL (0.2-1.0); BLOOD UREA NITROGEN 11 MG/DL (7-18); CALCIUM LEVEL 8.7 MG/DL (8.8-10.2); CARBON DIOXIDE LEVEL 28 MEQ/L (21-32); CHLORIDE LEVEL 107 MEQ/L (98-107); CHOLESTEROL LEVEL 175 MG/DL (<200); CREATININE FOR GFR 0.69 MG/DL (0.55-1.30); GLOMERULAR FILTRATION RATE > 60.0 (>45); GLUCOSE, FASTING 88 MG/DL (70-100); HDL CHOLESTEROL 57 MG/DL (>40); LDL CHOLESTEROL 82 MG/DL (<100); NON-HDL-C 118 MG/DL; POTASSIUM SERUM 4.3 MEQ/L (3.5-5.1); SODIUM LEVEL 139 MEQ/L (136-145); TOTAL PROTEIN 6.8 GM/DL (6.4-8.2); TRIGLYCERIDES LEVEL 179 MG/DL (<150)
[2019-08-17 13:46] LABS: HEMOGLOBIN A1c 6.3 %
[2019-08-17 14:05] LABS: TOTAL 25(OH) VITAMIN D 47.7 NG/ML (30.0-100.0)
== END ==
LOC: M WUC 10:35
PROVIDERS: ATTEND Nurse Practitioner Family
DX: E11.9 Type 2 diabetes mellitus without complications (principal); G89.29 Other chronic pain; E78.5 Hyperlipidemia, unspecified; E55.9 Vitamin D deficiency, unspecified

== ENCOUNTER → 2019-12-01 | Outpatient (REF) | payer MEDICARE, MEDICAID ==
[~2019-12-01] MED LIST changes: +ALL10TAB3 PO
[2019-12-01 13:48] LABS: BASO % 0.5 % (0.0-1.0); EOS # 0.1 10^3/uL (0.0-0.5); EOS % 2.2 % (0.0-3.0); HEMATOCRIT 40.8 % (36.0-47.0); LYMPH # 1.8 10^3/uL (1.5-5.0); LYMPH % 28.8 % (24.0-44.0); MEAN CORPUSCULAR HGB CONC 31.9 g/dl (32.0-36.5); MONO # 0.7 10^3/uL (0.0-0.8); MONO % 10.4 % (0.0-5.0); NEUTROPHILS # 3.6 10^3/uL (1.5-8.5); NEUTROPHILS % 57.8 % (36.0-66.0); PLATELET COUNT, AUTOMATED 235 10^3/uL (150-450); RED BLOOD COUNT 4.34 10^6/uL (4.00-5.40); WHITE BLOOD COUNT 6.3 10^3/uL (4.0-10.0)
[2019-12-01 14:23] LABS: BLOOD UREA NITROGEN 11 MG/DL (7-18); CALCIUM LEVEL 9.2 MG/DL (8.8-10.2); CARBON DIOXIDE LEVEL 29 MEQ/L (21-32); CHLORIDE LEVEL 105 MEQ/L (98-107); CREATININE FOR GFR 0.88 MG/DL (0.55-1.30); FREE T4 1.06 NG/DL (0.76-1.46); GLOMERULAR FILTRATION RATE > 60.0 (>45); GLUCOSE, FASTING 104 MG/DL (70-100); POTASSIUM SERUM 5.2 MEQ/L (3.5-5.1); SODIUM LEVEL 138 MEQ/L (136-145)
== END ==
LOC: M SFHCPLAZ 11:38
PROVIDERS: ATTEND Nurse Practitioner Family
DX: R21 Rash and other nonspecific skin eruption (principal); E89.0 Postprocedural hypothyroidism
CPT/HCPCS: 36415; 80048; 84439; 84443; 85025; G0463

== ENCOUNTER → 2019-12-13 | Outpatient (CLI) | payer MEDICARE, MEDICAID ==
[~2019-12-13] MED LIST changes: +METF-877 PO; +OMEP40CA97 PO; +SIMV40TA20 PO; +VITA-145 PO
[2019-12-13 11:39] LABS: HEMATOCRIT 39.3 % (36.0-47.0); HEMOGLOBIN 12.6 g/dl (12.0-15.5); MEAN CORPUSCULAR HEMOGLOBIN 30.2 pg (27.0-33.0); MEAN CORPUSCULAR HGB CONC 32.1 g/dl (32.0-36.5); MEAN CORPUSCULAR VOLUME 94.2 fl (80.0-96.0); PLATELET COUNT, AUTOMATED 233 10^3/uL (150-450); RED BLOOD COUNT 4.17 10^6/uL (4.00-5.40); WHITE BLOOD COUNT 6.3 10^3/uL (4.0-10.0)
[2019-12-13 11:55] LABS: INR 0.89; PROTHROMBIN TIME 12.2 SECONDS (12.5-14.3)
[2019-12-13 12:12] LABS: ERYTHROCYTE SEDIMENTATION RATE 21 mm/hr (0-30)
[2019-12-13 12:18] LABS: ALBUMIN 4.1 GM/DL (3.2-5.2); ALT/SGPT 51 U/L (12-78); BILIRUBIN,TOTAL 0.3 MG/DL (0.2-1.0); BLOOD UREA NITROGEN 8 MG/DL (7-18); CALCIUM LEVEL 9.3 MG/DL (8.8-10.2); CARBON DIOXIDE LEVEL 28 MEQ/L (21-32); CHLORIDE LEVEL 105 MEQ/L (98-107); CREATININE FOR GFR 0.74 MG/DL (0.55-1.30); GLOMERULAR FILTRATION RATE > 60.0 (>45); GLUCOSE, FASTING 111 MG/DL (70-100); POTASSIUM SERUM 4.6 MEQ/L (3.5-5.1); SODIUM LEVEL 138 MEQ/L (136-145); TOTAL PROTEIN 7.1 GM/DL (6.4-8.2)
--- NOTE | 2019-12-13 13:34 | ECGEPIP ---
[facility] Test Date: 2019-12-13 Pat Name: CALEB COLLADO Department: Room: - Gender: Female Tank Charger: GLORIA : [id number] Requested By: Scotty Sanchez Order Number: [id number] Reading MD: Konrad Erickson Measurements Intervals Cosmos Rate: 61 P: 54 NM: 156 QRS: 53 QRSD: 92 T: 39 QT: 390 QTc: 394 Interpretive Statements SINUS RHYTHM, Poor R wave progression No prior ECG available for comparison at the time of interpretation. Electronically Signed on 12-13-2019 13:34:28 EDT by Konrad Erickson
--- NOTE | 2019-12-13 13:40 | REP ---
INDICATION: RIGHT HIP ARTHRITIS, PREOP. COMPARISON: Comparison radiographs September 22, 2017. TECHNIQUE: Two views.. FINDINGS: The lungs are well inflated and free of infiltrate. The pleural angles are sharp. The heart size is normal. Pulmonary vasculature is not increased. No significant bony abnormality is seen. There are degenerative changes in the thoracic spine. IMPRESSION: No active cardiopulmonary disease.. <Electronically signed by Harjinder Sanchez > 12/13/19 1532
== END ==
LOC: M LAB 11:02
PROVIDERS: ATTEND Orthopaedic Surgery
DX: Z01.818 Encounter for other preprocedural examination (principal); M16.11 Unilateral primary osteoarthritis, right hip

== ENCOUNTER → 2019-12-22 | Outpatient (CLI) | payer MEDICARE, MEDICAID | LOC: M LABSMTC 11:54 | PROVIDERS: ATTEND Anesthesiology | DX: Z01.818 Encounter for other preprocedural examination (principal) | CPT/HCPCS: C9803; U0003 ==

== ENCOUNTER 2019-12-27 06:04 | Inpatient (IN) | payer MEDICARE, MEDICAID ==
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
[~2019-12-27] VITALS: Ht 152.4 cm; Wt 80.7 kg
[~2019-12-27 06:04] MED LIST changes: +ACETAMINOPHEN 500 MG TAB PO ONE; -METF-877 PO; -OMEP40CA97 PO; -SIMV40TA20 PO; -VITA-145 PO; +ceFAZolin SOD 2 GM in IV 1 EA IV ONE
[2019-12-27] MEDS ORDERED: MIDAZOLAM INJ 2MG/2ML VIAL (J2250 PER 1MG) As Ordered ONE (06:51)
[2019-12-27] MEDS ORDERED: fentaNYL 100 MCG/2 ML INJECTION (J3010) As Ordered ONE (06:51)
[2019-12-27] MEDS ORDERED: propofoL 500 MG/50 ML VIAL As Ordered ONE (06:51)
[2019-12-27] MEDS ORDERED: LIDOCAINE 2% 100MG/5ML SDV (FOR ANES.) As Ordered ONE (06:54)
[2019-12-27] MEDS ORDERED: propofoL 200 MG/20 ML VIAL As Ordered ONE (06:55)
[2019-12-27] MEDS ORDERED: ceFAZolin 1GM VIAL (J0690 PER 500MG) As Ordered ONE (07:14)
[2019-12-27] MEDS ORDERED: TRANEXAMIC ACID 100 MG/ML 10ML VIAL As Ordered ONE (07:14)
[2019-12-27] MEDS ORDERED: PHENYLephrine HCL 500 MCG/5 ML (100MCG/ML) SYRINGE (J2370) As Ordered ONE (08:11)
[2019-12-27] MEDS ORDERED: ePHEDrine SULFATE 25 MG/5 ML(5MG/ML) SYRINGE As Ordered ONE (08:11)
[2019-12-27] MEDS ORDERED: GLYCOPYRROLATE INJ 0.2 MG/ML 2 ML VIAL As Ordered ONE (08:16)
[2019-12-27] MEDS ORDERED: METOCLOPRAMIDE INJ 10MG/2ML VIAL (J2765 PER 1) IV PRN (09:30)
[2019-12-27] MEDS ORDERED: LR 1,000 ML IV SCH ×2 (09:30→09:45)
[2019-12-27] MEDS ORDERED: ONDANSETRON 4MG/2ML VIAL IV PRN ×2 (09:30→09:45)
[2019-12-27] MEDS: PERCOCET 5MG/325MG TAB PO PRN ×4 (09:42→22:14)
--- NOTE | 2019-12-27 09:48 | REP ---
INDICATION: POST OP IN PACU. COMPARISON: 06/25/2019 TECHNIQUE: Two views, portable FINDINGS: Skin agustin are noted and there are changes of a right total hip arthroplasty. The 2 components are well aligned in relationship to the [place] bone and each other. There are posttraumatic changes of the femoral shaft below the femoral stem component from previous healed fracture. An intramedullary carter track is seen in the femur below the tip of the prosthesis. IMPRESSION: 1. Status post right total hip arthroplasty with the 2 components well aligned in relationship to each other and the [place] bone. <Electronically signed by Herberth Napier > 12/27/19 0970
[2019-12-27] MEDS: fentaNYL 100 MCG/2 ML INJECTION (J3010) IV PRN ×4 (09:57→10:28)
[2019-12-27] MEDS ORDERED: HYDROMORPHONE HCL 0.5 MG/ 0.5 ML SYRINGE (J1170 PER 1) As Ordered ONE (10:09)
[2019-12-27] MEDS ORDERED: ACETAMINOPHEN TAB 650MG DOSE (2X325MG) PO PRN (10:30)
[2019-12-27] MEDS ORDERED: PERCOCET 5MG/325MG TAB PO PRN (10:30)
[2019-12-27] MEDS ORDERED: HYDROMORPHONE HCL 0.5 MG/ 0.5 ML SYRINGE (J1170 PER 1) IV PRN ×2 (10:30→10:45)
[2019-12-27 11:00] VITALS: BP 123/54
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
[2019-12-27 11:30] VITALS: BP 124/64
[2019-12-27] MEDS: HYDROMORPHONE HCL 0.5 MG/ 0.5 ML SYRINGE (J1170 PER 1) IV PRN ×2 (11:55→18:39)
[2019-12-27] MEDS ORDERED: DEXTROSE 50% 50 ML SYRINGE IV PRN (12:00)
[2019-12-27] MEDS ORDERED: GLUCOSE 4GM CHEW TABLET PO PRN (12:00)
[2019-12-27] MEDS ORDERED: GLUCAGON INJ 1MG VIAL SC PRN (12:00)
[2019-12-27 12:30] VITALS: BP 133/71
[2019-12-27] MEDS: HumaLOG INSULIN (NovoLOG) PER UNIT SC SCH ×2 (12:39→17:46)
[2019-12-27] MEDS ORDERED: CelecoXIB 400 MG CAP PO ONE (13:00)
--- NOTE | 2019-12-27 13:24 | RO ---
DATE OF OPERATION: 12/27/2019 PREOPERATIVE DIAGNOSIS: Right hip degenerative arthritis, status post right femur fracture with intramedullary nail fixation and subsequent removal. POSTOPERATIVE DIAGNOSIS: Right hip degenerative arthritis, status post right femur fracture with intramedullary nail fixation and subsequent removal. PROCEDURE: Right total hip arthroplasty using a size 4 [place] stem with a 1.5 neck, 36 ball with 52 mm [place] cup with a neutral polyethylene liner. Prosthesis was made by [employer]. SURGEON: Scotty Dent MD MACHINE OPERATOR HAY STACKER: Kristin Luna ANESTHESIA: Spinal. COMPLICATIONS: None. ESTIMATED BLOOD LOSS: 200 mL. SPECIMENS: Femoral head. DESCRIPTION OF PROCEDURE: Antibiotics were given intravenously preoperatively and successful spinal anesthetic was induced. She was placed in the lateral decubitus position. The [place] hip positioner was utilized, down leg well padded and the axillary roll utilized. The right hip area was carefully prepped and draped in the usual sterile fashion. After appropriate timeout, a longitudinal incision was made for a direct lateral approach to the hip. Bovie cautery was used to coagulate crossing vessels down to the tensor fascia which was then divided in line with a skin through the previous scar bed. The gluteus medius was split in the anterior one-third, posterior two-thirds junction proximally and then down to the underlying gluteus minimus, and then we carefully dissected off the proximal femur distally as we externally rotated the hip, and then eventually dislocated anteriorly and placed the leg into the leg bag. Piriformis fossa was identified. Scar tissue removed from the prior surgery. Starter reamer was placed followed by the canal-finding reamer and then the lateralizing reamer and then we reamed up to a size 4. The femoral canal was surprisingly tight despite the x-rays. But, we had to use the reamers to help open up some of the marbleized bone to get down to good bleeding bone for better press-fit fixation. It felt reasonable after broaching beginning with a size 2 that the [place] stem actually would fit nicely with good proximal fit and fill with good stability; thus, we did not feel I needed to use the AML or the solution-type stem. I determined that after performing the femoral neck osteotomy using the jig. The #4 broach actually fit quite nicely; it did not seat fully but we were less than a fingerbreadth above the lesser trochanter and I felt this was appropriate. I felt that this stem would give her good fixation and stability. Thus, I removed the broach and then we exposed the acetabulum, performed a labral excision 360 degrees and then began reaming beginning at 47, advanced to 51. The trial 52 fit nicely using extramedullary guide to set our version and abduction. We copiously irrigated and then placed the real [place] cup; central hole eliminator placed, polyethylene placed after copious irrigation and we made sure it was seated properly. There was a large anterior osteophyte which was removed with an osteotome. I then irrigated out the femoral canal thoroughly, placed the #4 broach once again, trialed with a 1.5 neck with a 36 ball and the hip was very stable to flexion internal rotation and extension external rotation with minimal soft tissue telescoping; thus, I did not think I needed to change that construct. This seemed to be the appropriate one. I removed the trial, copiously irrigated out the femoral canal again, placed the real #4 [place] stem; it seated back to where we were with the broach, dried the trunnion, placed the real head with a 1.5 neck and then reduced the hip after irrigating once again. We then meticulously closed the gluteus minimus and then the medius back in layers to the trochanter with interrupted #1 PDS sutures, irrigating between layers. Tranexamic acid was instilled into the wound and then we closed the tensor fascia using a combination of #1 PDS sutures and a running #1 STRATAFIX and then the deep subdermal tissues were closed with interrupted 2-0 PDS sutures and skin was closed with agustin covered by an Optifoam dressing and a dry sterile bulky dressing. Then, she was turned supine and transferred to the recovery room in stable condition. There were no intraoperative complications. Kristinbrittany Luna was critical to the success of this difficult surgery by helping with the appropriate soft tissue retraction, helped to prepare the patient, helped to close the wound, helped to place the leg in a leg bag and dislocate and relocate the hip several times throughout the surgery to help me perform the operation smoothly, efficiently, and safely. SLICK
[2019-12-27 13:30] VITALS: BP 133/70
[2019-12-27] MEDS ORDERED: OMEP40CA97 PO (13:58)
[2019-12-27] MEDS ORDERED: METF-877 PO (13:58)
[2019-12-27] MEDS ORDERED: SIMV40TA20 PO (13:58)
[2019-12-27] MEDS ORDERED: VITA-145 PO (13:58)
[2019-12-27 14:30] VITALS: BP 130/71
[2019-12-27] MEDS: DULoxetine 30 MG CAP (CYMBALTA) PO SCH (14:30)
[2019-12-27] MEDS: OMEPRAZOLE 20 MG CAP PO SCH (14:30)
[2019-12-27] MEDS: ceFAZolin SOD 2 GM in IV 1 EA IV SCH (16:01)
[2019-12-27] MEDS ORDERED: traZODone 100 MG TAB PO SCH (21:00)
[2019-12-27] MEDS ORDERED: HumaLOG INSULIN (NovoLOG) PER UNIT SC SCH (21:00)
[2019-12-27 22:00] VITALS: BP 156/60
[2019-12-27] MEDS: ASPIRIN 81 MG CHEW TABLET PO SCH (22:14)
[2019-12-28] MEDS: ceFAZolin SOD 2 GM in IV 1 EA IV SCH ×2 (00:12→08:43)
[2019-12-28] MEDS: HYDROMORPHONE HCL 0.5 MG/ 0.5 ML SYRINGE (J1170 PER 1) IV PRN (02:29)
[2019-12-28 06:00] VITALS: BP 115/45
[2019-12-28] MEDS: PERCOCET 5MG/325MG TAB PO PRN (06:56)
[2019-12-28] MEDS ORDERED: PERC5TAB12 PO (07:14)
[2019-12-28] MEDS ORDERED: ECOT81TA5 PO ×2 (07:14→11:18)
[2019-12-28 07:59] LABS: HEMATOCRIT 33.6 % (36.0-47.0); HEMOGLOBIN 10.5 g/dl (12.0-15.5); MEAN CORPUSCULAR HEMOGLOBIN 30.5 pg (27.0-33.0); MEAN CORPUSCULAR HGB CONC 31.3 g/dl (32.0-36.5); MEAN CORPUSCULAR VOLUME 97.7 fl (80.0-96.0); PLATELET COUNT, AUTOMATED 174 10^3/uL (150-450); RED BLOOD COUNT 3.44 10^6/uL (4.00-5.40); WHITE BLOOD COUNT 8.2 10^3/uL (4.0-10.0)
[2019-12-28 08:21] LABS: ALT/SGPT 23 U/L (12-78); BILIRUBIN,TOTAL 0.2 MG/DL (0.2-1.0); BLOOD UREA NITROGEN 11 MG/DL (7-18); CALCIUM LEVEL 8.2 MG/DL (8.8-10.2); CARBON DIOXIDE LEVEL 30 MEQ/L (21-32); CHLORIDE LEVEL 105 MEQ/L (98-107); CREATININE FOR GFR 0.72 MG/DL (0.55-1.30); GLOMERULAR FILTRATION RATE > 60.0 (>45); GLUCOSE, FASTING 165 MG/DL (70-100); POTASSIUM SERUM 3.9 MEQ/L (3.5-5.1); SODIUM LEVEL 140 MEQ/L (136-145); TOTAL PROTEIN 5.9 GM/DL (6.4-8.2)
[2019-12-28] MEDS: DULoxetine 30 MG CAP (CYMBALTA) PO SCH (08:43)
[2019-12-28] MEDS: OMEPRAZOLE 20 MG CAP PO SCH (08:43)
[2019-12-28] MEDS: ASPIRIN 81 MG CHEW TABLET PO SCH (08:43)
[2019-12-28] MEDS: HumaLOG INSULIN (NovoLOG) PER UNIT SC SCH ×2 (08:44→11:44)
[2019-12-28] MEDS ORDERED: MIRALAX *UNIT DOSE* 17GM PACKET PO SCH (09:00)
[2019-12-28] MEDS ORDERED: LEVOTHYROXINE 100MCG TABLET (0.1MG) PO SCH (09:00)
[2019-12-28] MEDS ORDERED: MOM 30ML SUSPENSION UDC PO SCH (09:00)
[2019-12-28 10:00] VITALS: BP 134/72
[2019-12-28] MEDS ORDERED: SIMVASTATIN 40 MG TAB PO SCH (21:00)
--- NOTE | 2019-12-31 14:04 | DS ---
DATE OF ADMISSION: 12/27/2019 DATE OF DISCHARGE: 12/28/2019 ATTENDING: Scotty Dent M.D. ADMITTING DIAGNOSIS: Osteoarthritis right hip status post right femur fracture with IM nail fixation and subsequent removal. OTHER DIAGNOSES: Include: * Diabetes. * Hyperlipidemia. * gastric reflux disease. * Vitamin D deficiency. * hearing loss. * osteopenia. * Hypothyroidism. * Aortic valve stenosis. DISCHARGE DIAGNOSES: * Osteoarthritis right hip status post right femur fracture with IM nail fixation and subsequent removal. * Status post right total hip arthroplasty. HISTORY: This is a 64-year-old female patient with progressively worsening hip pain and osteoarthritis in the right hip. This patient had a prior ORIF of her hip fracture. She had the hardware removed first and then presented for the hip replacement. She was admitted for elective hip replacement on the right side. OPERATION PERFORMED: Right total hip arthroplasty. HOSPITAL COURSE: The patient was admitted on the day of surgery and underwent the right total hip arthroplasty which was uneventful. She did well in the post- operative period and her hospital course was without complications. She was up with physical therapy per their protocol and her pain was controlled. On the day of discharge she was weightbearing as tolerated on the right lower extremity. She will use aspirin 81 mg twice a day and Wade stockings for DVT prophylaxis per the protocol. She will resume her pre-operative medications and diet. She was given instructions to include, but not limited to wound monitoring and activity limitations. She will follow up in our office in 10-14 days for a surgical follow up. Please refer to the medical record for further details. SLICK
== END 2019-12-28 12:15 | disposition home health service (06) | DRG 470 ==
LOC: M OR 06:04 → M MS5PR 10:50
PROVIDERS: ADMIT Orthopaedic Surgery; ATTEND Orthopaedic Surgery
PROC: 0SR902Z Replacement of Right Hip Joint with Metal on Polyethylene Synthetic Substitute, Open Approach (ICD-10-PCS; principal; 2019-12-27 07:30)
DX: M16.11 Unilateral primary osteoarthritis, right hip (principal); E11.9 Type 2 diabetes mellitus without complications; E78.5 Hyperlipidemia, unspecified; K21.9 Gastro-esophageal reflux disease without esophagitis; E55.9 Vitamin D deficiency, unspecified; H91.93 Unspecified hearing loss, bilateral; R26.89 Other abnormalities of gait and mobility; M85.80 Other specified disorders of bone density and structure, unspecified site; E03.9 Hypothyroidism, unspecified; G89.29 Other chronic pain; I35.8 Other nonrheumatic aortic valve disorders; Z87.891 Personal history of nicotine dependence; Z79.84 Long term (current) use of oral hypoglycemic drugs; Z79.891 Long term (current) use of opiate analgesic; Z79.899 Other long term (current) drug therapy; Z88.5 Allergy status to narcotic agent; Z87.81 Personal history of (healed) traumatic fracture

== ENCOUNTER → 2020-03-13 | Outpatient (CLI) | payer MEDICARE, MEDICAID ==
[~2020-03-13] MED LIST changes: -ACETAMINOPHEN 500 MG TAB PO ONE; +ECOT81TA5 PO; +METF-877 PO; +OMEP40CA97 PO; +PERC5TAB12 PO; +SIMV40TA20 PO; +VITAD1000T PO; -ceFAZolin SOD 2 GM in IV 1 EA IV ONE
[2020-03-13 12:15] LABS: HEMOGLOBIN A1c 6.1 %
[2020-03-13 12:37] LABS: MALB URINE SIEMENS 23.4 MG/L; MAU/CREAT RATIO 9.6 MCG/MG (0.0-30.0)
[2020-03-13 12:39] LABS: ALBUMIN 3.8 GM/DL (3.2-5.2); ALT/SGPT 26 U/L (12-78); BILIRUBIN,TOTAL 0.3 MG/DL (0.2-1.0); BLOOD UREA NITROGEN 15 MG/DL (7-18); CALCIUM LEVEL 9.2 MG/DL (8.8-10.2); CARBON DIOXIDE LEVEL 29 MEQ/L (21-32); CHLORIDE LEVEL 104 MEQ/L (98-107); CHOLESTEROL LEVEL 182 MG/DL (<200); CHOLESTEROL RISK RATIO 2.716 (<5); CREATININE FOR GFR 0.79 MG/DL (0.55-1.30); FREE T4 1.19 NG/DL (0.76-1.46); GLOMERULAR FILTRATION RATE > 60.0 (>45); GLUCOSE, FASTING 112 MG/DL (70-100); HDL CHOLESTEROL 67 MG/DL (>40); LDL CHOLESTEROL 87 MG/DL (<100); NON-HDL-C 115 MG/DL; POTASSIUM SERUM 4.5 MEQ/L (3.5-5.1); SODIUM LEVEL 140 MEQ/L (136-145); TOTAL 25(OH) VITAMIN D 39.9 NG/ML (30.0-100.0); TOTAL PROTEIN 6.9 GM/DL (6.4-8.2); TRIGLYCERIDES LEVEL 140 MG/DL (<150)
== END ==
LOC: M WUC 10:12
PROVIDERS: ATTEND Nurse Practitioner Family
DX: E89.0 Postprocedural hypothyroidism (principal); E11.9 Type 2 diabetes mellitus without complications; E78.5 Hyperlipidemia, unspecified; E55.9 Vitamin D deficiency, unspecified; Z79.899 Other long term (current) drug therapy

== ENCOUNTER → 2020-05-10 | Outpatient (CLI) | payer MEDICARE, MEDICAID ==
--- NOTE | 2020-05-10 13:20 | REP ---
INDICATION: LUNG NODULE. COMPARISON: Low-dose lung screening chest CT studies dated 10/01/2017 and 05/03/2019. TECHNIQUE: The study is performed without IV contrast. Images are presented at lung windowing only. FINDINGS: There is a stable 5 mm right upper lobe lung nodule on image 36, unchanged from both prior studies. There are no new lung nodules or masses. There are no infiltrates or pleural effusions. IMPRESSION: Category 2 low-dose lung screening CT of the chest. The probability of malignancy is less than 1%. Depending on risk factors consider continued follow-up annual low-dose lung screening chest CT. <Electronically signed by Santos Rodrigez > 05/10/20 0545
== END ==
LOC: M RAD 10:18
PROVIDERS: ATTEND Nurse Practitioner Family
DX: Z12.2 Encounter for screening for malignant neoplasm of respiratory organs (principal); R91.1 Solitary pulmonary nodule

== ENCOUNTER → 2020-05-19 | Outpatient (CLI) | payer MEDICARE, MEDICAID ==
[2020-05-19 14:05] LABS: BLOOD UREA NITROGEN 13 MG/DL (7-18); CALCIUM LEVEL 9.3 MG/DL (8.8-10.2); CARBON DIOXIDE LEVEL 29 MEQ/L (21-32); CHLORIDE LEVEL 105 MEQ/L (98-107); CREATININE FOR GFR 0.65 MG/DL (0.55-1.30); FREE T4 1.16 NG/DL (0.76-1.46); GLOMERULAR FILTRATION RATE > 60.0 (>45); GLUCOSE, FASTING 147 MG/DL (70-100); POTASSIUM SERUM 4.3 MEQ/L (3.5-5.1); SODIUM LEVEL 140 MEQ/L (136-145); THYROID STIMULATING HORMONE 0.091 uIU/ML (0.358-3.740)
[2020-05-19 14:31] LABS: HEMOGLOBIN A1c 6.7 %
== END ==
LOC: M WUC 10:02
PROVIDERS: ATTEND Nurse Practitioner Family
DX: E11.9 Type 2 diabetes mellitus without complications (principal); E89.0 Postprocedural hypothyroidism

== ENCOUNTER → 2020-08-03 | Outpatient (REF) | payer MEDICARE, MEDICAID ==
[~2020-08-03] MED LIST changes: +OMEP40CA4 PO; -OMEP40CA97 PO
[2020-08-03 14:12] LABS: BLOOD UREA NITROGEN 12 MG/DL (7-18); CALCIUM LEVEL 8.9 MG/DL (8.8-10.2); CARBON DIOXIDE LEVEL 30 MEQ/L (21-32); CHLORIDE LEVEL 107 MEQ/L (98-107); FREE T4 1.02 NG/DL (0.76-1.46); GLOMERULAR FILTRATION RATE > 60.0 (>45); GLUCOSE, FASTING 158 MG/DL (70-100); POTASSIUM SERUM 4.9 MEQ/L (3.5-5.1); SODIUM LEVEL 141 MEQ/L (136-145)
[2020-08-03 14:16] LABS: HEMOGLOBIN A1c 7.1 %
== END ==
LOC: M SFHCPLAZ 10:49
PROVIDERS: ATTEND Nurse Practitioner Family
DX: E89.0 Postprocedural hypothyroidism (principal); E11.9 Type 2 diabetes mellitus without complications
CPT/HCPCS: 36415; 80048; 83036; 84439; 84443; G0463

== ENCOUNTER → 2020-11-20 | Outpatient (CLI) | payer MEDICARE, MEDICAID ==
[2020-11-20 14:00] LABS: ALBUMIN 3.9 GM/DL (3.2-5.2); ALT/SGPT 26 U/L (12-78); BILIRUBIN,TOTAL 0.3 MG/DL (0.2-1.0); BLOOD UREA NITROGEN 10 MG/DL (7-18); CALCIUM LEVEL 8.9 MG/DL (8.8-10.2); CARBON DIOXIDE LEVEL 29 MEQ/L (21-32); CHLORIDE LEVEL 106 MEQ/L (98-107); CHOLESTEROL LEVEL 185 MG/DL (<200); CHOLESTEROL RISK RATIO 3.425 (<5); CREATININE FOR GFR 0.87 MG/DL (0.55-1.30); FREE T4 0.88 NG/DL (0.76-1.46); GLOMERULAR FILTRATION RATE > 60.0 (>45); GLUCOSE, FASTING 119 MG/DL (70-100); HDL CHOLESTEROL 54 MG/DL (>40); LDL CHOLESTEROL 91 MG/DL (<100); NON-HDL-C 131 MG/DL; POTASSIUM SERUM 4.2 MEQ/L (3.5-5.1); SODIUM LEVEL 140 MEQ/L (136-145); TOTAL 25(OH) VITAMIN D 41.9 NG/ML (30.0-100.0); TOTAL PROTEIN 7.1 GM/DL (6.4-8.2); TRIGLYCERIDES LEVEL 200 MG/DL (<150)
[2020-11-20 14:06] LABS: HEMOGLOBIN A1c 6.8 %
[2020-11-20 14:10] LABS: MALB URINE SIEMENS 84.5 MG/L; MAU/CREAT RATIO 23.1 MCG/MG (0.0-30.0)
== END ==
LOC: M WUC 10:44
PROVIDERS: ATTEND Nurse Practitioner Family
DX: E11.9 Type 2 diabetes mellitus without complications (principal); E78.5 Hyperlipidemia, unspecified; E55.9 Vitamin D deficiency, unspecified; Z79.891 Long term (current) use of opiate analgesic

== ENCOUNTER → 2020-12-16 | Outpatient (CLI) | payer MEDICARE, MEDICAID ==
[~2020-12-16] MED LIST changes: +SYNT88TA2 PO
== END ==
LOC: M LABSMTC 10:43
PROVIDERS: ATTEND Anesthesiology
DX: Z01.812 Encounter for preprocedural laboratory examination (principal); Z20.822 Contact with and (suspected) exposure to COVID-19

== ENCOUNTER 2020-12-20 12:20 | Day surgery (SDC) | payer MEDICARE, MEDICAID ==
[~2020-12-20] VITALS: Ht 152.4 cm; Wt 81.1 kg
[~2020-12-20 12:20] MED LIST changes: +NS 1,000 ML IV ONE
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
--- OUTSIDE RECORDS SUMMARY | 2020-12-20 12:26 | CCD ---
Author Author [facility] Organization [facility] Address Unknown Phone Unavailable Care Team Providers Care Media Operator Name Role Phone Sara Blanco Unavailable PROBLEMS Type Condition ICD9-CM Code [id number] Code Onset Dates Condition S tatus W/U Status Risk SNOMED Code Notes Problem Vitamin D deficiency, unspecified E55.9 Active con firmed 94182036 Problem Hyperlipidemia, unspecified E78.5 Active confirmed 87029651 Problem Other insomnia G47.09 Active confirmed 99360 2001 Problem Graves disease E05.00 Active confirmed 29619 5004 Problem Depression with anxiety F41.8 Active confirmed 469906344 Problem Ureteral stone with hydronephrosis N13.2 Activ e confirmed 184277728 Problem Other chronic pain G89.29 Active confirmed 8 5255492 Problem Unilateral primary osteoarthritis, right hip M16.1 1 Active confirmed 651625435504713 Problem Gastro-esophageal reflux disease without esophagitis K21.9 Active confirmed 763541343 Problem Obesity (BMI 30-39.9) E66.9 Active confirmed 561880636 Problem Type 2 diabetes mellitus wit hout complication, without long-term current use of insulin E11.9 Active confirmed 498413436 Problem Postprocedural hypothyroidism E89.0 Active confirm ed 54740981 Problem Lung nodule R91.1 Active confirmed 74613287 2 ALLERGIES Allergen (clinical drug ingredient) Drug/Non Drug Allergy do cumented on EMR Reaction Allergy Type Onset Date Status morphine Morphine Sulfate([facility] Code:[address]-60) intense headaches Drug Allergy Active ENCOUNTERS from 1955 to 2020-11-17 Encounter Location Date Provider Diagnosis [facility] Walter [address] [facility] [phone] [place] [address] Nov, Sara Deshpandemarco IMMUNIZATIONS Vaccine Route Administration Date Status Influenza Denied Unknown Feb 18, 2019 Others Influenza 6mo & up Fluzone Unknown Jan 04, 2016 Refus ed SOCIAL HISTORY Tobacco Use: Social History Observation Description Date Details (start date - stop date) Former Smoker Sex Assigned At : Social History Observation Description Sex Assigned At Unknown Audit Question Answer Notes Total Score: 0 Interpretation: Alcohol Education Hindu: Question Answer Notes Hindu 33 None Sexual Hx: Question Answer Notes [...] Orally twice daily for 30 Days Active Synthroid 75 MCG 1 tablet in the morning on a n empty stomach Orally Once a day "MARQUISE" for 30 day(s) Jul, Active Vitamin D-3 25 MCG (1000 UT) TAKE 2 CAPSULES BY MOUTH ONCE DAILY WITH A MEAL orally Daily for 90 days Active Ibuprofen 800 MG 1 tablet Orally Three times a day as needed, always take with some food for 30 days Mar, Active Omeprazole 40 MG 1 capsule Orally [...] Information RESULTS No Results REASON FOR VISIT istop MEDICAL (GENERAL) HISTORY Type Description Date Medical [...] Surgical History Right total hip arthroplasty at [facility] by Martha Dent 12/27/2019; Hospitalization History above surgeries Goals Section No Information Health Concerns No Information MEDICAL EQUIPMENT No Information MENTAL STATUS No Information FUNCTIONAL STATUS No Information ASSESSMENTS No Information PLAN OF TREATMENT Medication Medication Name Sig Start Date Stop Date Cymbalta 60 MG 1 capsule Orally Once a day Simvastatin 40 MG 1 tablet in the evening Orally Once a day metFORMIN HCl 500 MG 1 tablet with breakfast, 2 t abs with dinner meal Orally twice daily for 30 Days HYDROcodone-Acetaminophen 7.5-325 MG 1 tablet as neede d Orally every 4-6 hrs MDD # 5 for 30 Days Insurance Providers Payer Name Payer Address Payer Phone Insured Name Patient Relati onship to Insured Coverage Start Date Coverage End Date MEDICARE Part A and B [address] [facility] [phone] [phone] [place] [employer] MEDICAID [place] [employer] [address] [facility] [address] [place] self
--- OUTSIDE RECORDS SUMMARY | 2020-12-20 12:26 | CCD ---
Author Author [facility] Organization [facility] Address Unknown Phone Unavailable Care Team Providers Care Real Estate Assessor Name Role Phone Digna Valentino Unavailable PROBLEMS Type Condition ICD9-CM Code CDM77-HD Code Onset Dates Condition S tatus W/U Status Risk SNOMED Code Notes Problem Vitamin D deficiency, unspecified E55.9 Active con firmed 63752750 Problem Hyperlipidemia, unspecified E78.5 Active confirmed 21158086 Problem Other insomnia G47.09 Active confirmed 93433 2001 Problem Graves disease E05.00 Active confirmed 08125 5004 Problem Depression with anxiety F41.8 Active confirmed 346489287 Problem Ureteral stone with hydronephrosis N13.2 Activ e confirmed 887711112 Problem Other chronic pain G89.29 Active confirmed 8 3593399 Problem Unilateral primary osteoarthritis, right hip M16.1 1 Active confirmed 224745889976689 Problem Gastro-esophageal reflux disease without esophagitis K21.9 Active confirmed 843465046 Problem Obesity (BMI 30-39.9) E66.9 Active confirmed 124233061 Problem Type 2 diabetes mellitus wit hout complication, without long-term current use of insulin E11.9 Active confirmed 528150286 Problem Postprocedural hypothyroidism E89.0 Active confirm ed 13203951 Problem Lung nodule R91.1 Active confirmed 05615319 2 ALLERGIES Allergen (clinical drug ingredient) Drug/Non Drug Allergy do cumented on EMR Reaction Allergy Type Onset Date Status morphine Morphine Sulfate([facility] Code:[address]-64) intense headaches Drug Allergy Active ENCOUNTERS from 1955 to 2020-12-01 Encounter Location Date Provider Diagnosis [facility] Walter [address] [facility] [phone] [place] [address] Nov, Digna Valentino Other chronic pain G89.29 IMMUNIZATIONS Vaccine Route Administration Date Status Influenza Denied Unknown Feb 18, 2019 Others Influenza 6mo & up Fluzone Unknown Jan 04, 2016 Refus ed SOCIAL HISTORY Tobacco Use: Social History Observation Description Date Details (start date - stop date) Former Smoker Sex Assigned At : Social History Observation Description Sex Assigned At Unknown Audit Question Answer Notes Total Score: 0 Interpretation: Alcohol Education Pentecostalism: Question Answer Notes Pentecostalism 33 None Sexual Hx: Question Answer Notes [...] Notes Start Da te End Date Status HYDROcodone-Acetaminophen 7.5-325 MG 1 tablet as neede d Orally every 4-6 hrs MDD # 5 for 30 Days Nov, Active Flonase Allergy Relief 50 MCG/ACT 1 spray in each nost ril Nasally Once a day for 90 days Active Blood Glucose Test Strip - as directed In Vitro test d carlos alberto. DX: E11.9 for 30 day(s) Jul, Active Ibuprofen 800 MG 1 tablet Orally [...] Orally Once a day for 90 Active Lancets - as directed test daily DX: E11.9 for 30 day(s) Jul, Active traZODone HCl 100 MG 1 tablet at bedtime Orally Once a day for 30 day s Active Cymbalta 60 MG 1 capsule Orally Once a day Active Cetirizine HCl 10 MG 1 tablet Orally Once a day for 30 day(s) Active metFORMIN HCl 500 MG 1 tablet with breakfast, 2 t abs with dinner meal Orally twice daily for 30 Days Active Triamcinolone Acetonide 0.5 % 1 application Externally Twice a day x 2 weeks, then twice weekly as needed for 30 Days Active Simvastatin 40 MG 1 tablet in the evening Orally Once a day Active Blood Glucose Meter - as directed test daily DC: E11.9 for 99 mo [facility] Jul, Active Sarna 0.5-0.5 % 1 application as needed Externally Twice a day Active PROCEDURES No Information RESULTS No Results REASON FOR VISIT New Refill Request MEDICAL (GENERAL) HISTORY Type Description Date Medical [...] Surgical History Right total hip arthroplasty at [facility] by Martha Dent 12/27/2019; Hospitalization History above surgeries Goals Section No Information Health Concerns No Information MEDICAL EQUIPMENT No Information MENTAL STATUS No Information FUNCTIONAL STATUS No Information ASSESSMENTS Encounter Date Diagnosis Assessment Notes Treatment Notes Treatm ent Clinical Notes Nov, Other chronic pain (ICD-10 - G89.29) PLAN OF TREATMENT Medication Medication Name Sig [...] meal Orally twice daily for 30 Days Cymbalta 60 MG 1 capsule Orally Once a day HYDROcodone-Acetaminophen 7.5-325 MG 1 tablet as neede d Orally every 4-6 hrs MDD # 5 for 30 Days Nov, Next Appt Details Provider Name:Sara Badilloradha, 04-10 01:00:00 PM, [address] [facility], , [place], [address], Insurance Providers Payer Name Payer Address Payer Phone Insured Name Patient Relati onship to Insured Coverage Start Date Coverage End Date MEDICAID [place] [address] [facility] [id number] [phone] [place] S[employer]DIQI MEDICARE Part A and B [address] [facility] [phone] [place] [employer]
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
--- OUTSIDE RECORDS SUMMARY | 2020-12-20 12:26 | CCD ---
Author Author [facility] Organization [facility] Address Unknown Phone Unavailable Care Team Providers Care Diamond Blender Name Role Phone Sara Blanco Unavailable PROBLEMS Type Condition ICD9-CM Code [id number] Code Onset Dates Condition S tatus W/U Status Risk SNOMED Code Notes Problem Vitamin D deficiency, unspecified E55.9 Active con firmed 70942936 Problem Hyperlipidemia, unspecified E78.5 Active confirmed 55511452 Problem Other insomnia G47.09 Active confirmed 24282 2001 Problem Graves disease E05.00 Active confirmed 45388 5004 Problem Depression with anxiety F41.8 Active confirmed 901604765 Problem Ureteral stone with hydronephrosis N13.2 Activ e confirmed 719735668 Problem Other chronic pain G89.29 Active confirmed 8 0254644 Problem Unilateral primary osteoarthritis, right hip M16.1 1 Active confirmed [id number] Problem Gastro-esophageal reflux disease without esophagitis K21.9 Active confirmed 329724014 Problem Obesity (BMI 30-39.9) E66.9 Active confirmed 968130186 Problem Type 2 diabetes mellitus wit hout complication, without long-term current use of insulin E11.9 Active confirmed 489723785 Problem Postprocedural hypothyroidism E89.0 Active confirm ed 93172902 Problem Lung nodule R91.1 Active confirmed 31908128 2 ALLERGIES Allergen (clinical drug ingredient) Drug/Non Drug Allergy do cumented on EMR Reaction Allergy Type Onset Date Status morphine Morphine Sulfate([facility] Code:[address]-76) intense headaches Drug Allergy Active ENCOUNTERS from 1955 to 2020-11-22 Encounter Location Date Provider Diagnosis [facility] [address] [facility] [phone] [place] [address] Nov, Sara Blanco Type 2 diabetes mellitus wit hout complication, without long- term current use of insulin E11.9 ; Postprocedural hypothyroidism E89.0 ; Hyperlipidemia, unspecified E78.5 ; Other chronic pain G89.29 ; Vitamin D deficiency, unspecified E55.9 and Chronic narcotic use F11.90 IMMUNIZATIONS Vaccine Route Administration Date Status Influenza Denied Unknown Feb 18, 2019 Others Influenza 6mo & up Fluzone Unknown Jan 04, 2016 Refus ed SOCIAL HISTORY Tobacco Use: Social History Observation Description Date Details (start date - stop date) Former Smoker Sex Assigned At : Social History Observation Description Sex Assigned At Unknown Audit Question Answer Notes Total Score: 0 Interpretation: Alcohol Education Latter Day: Question Answer Notes Latter Day 33 None Sexual Hx: Question Answer Notes [...] REASON FOR REFERRAL No Information VITAL SIGNS Weight 177.12 lbs Nov, Weight-kg 80.34 kg Nov, Height 61 in Nov, BMI 33.46 kg/m2 Nov, Heart Rate 80 /min Nov, Respiratory Rate 18 /min Nov, Temperature 98 degrees Fahrenheit Nov, Oximetry 95% Nov, Blood pressure systolic 130 mm Hg Nov, Blood pressure diastolic 78 mm Hg Nov, MEDICATIONS Medication SIG (Take, Route, Frequency, Duration) [...] test daily DC: E11.9 for 99 mo [facility] Jul, Active Cetirizine HCl 10 MG 1 tablet Orally Once a day for 30 day(s) Active PROCEDURES No Information RESULTS Component Value Reference Range Comprehensive Metabolic Profile (CMP) Reviewed date:11/21/2020 09:42:19 Interpretation: Performing Lab:[facility], [facility] [address] [facility] [id number] , ,[place] [address] GLUCOSE, FASTING 119 70-100 BLOOD UREA NITROGEN 10 7-18 CREATININE FOR GFR 0.87 0.55-1.30 GLOMERULAR FILTRATION RATE > 60.0 >45 SODIUM LEVEL 140 136-145 POTASSIUM SERUM 4.2 3.5-5.1 CHLORIDE LEVEL 106 98-107 CARBON DIOXIDE LEVEL 29 21-32 CALCIUM LEVEL 8.9 8.8-10.2 AST/SGOT 21 7-37 ALT/SGPT 26 12-78 ALKALINE PHOSPHATASE 61 45-117 BILIRUBIN,TOTAL 0.3 0.2-1.0 TOTAL PROTEIN 7.1 6.4-8.2 ALBUMIN 3.9 3.2-5.2 ALBUMIN/GLOBULIN RATIO 1.2 1.2-2.2 FREE T4 & TSH PANEL Reviewed date:11/21/2020 15:17:24 Interpretation: Performing Lab:[facility] [address] [facility] [address] , ,[place] [address] THYROID STIMULATING HORMONE 17.800 0.358-3.740 FREE T4 0.88 0.76-1.46 HEMOGLOBIN A1c Reviewed date:11/21/2020 09:43:30 Interpretation: Performing Lab:[facility] [address] [place] [id number] , ,[place] [address] HEMOGLOBIN A1c 6.8 ESTIMATED AVERAGE GLUCOSE 148 60-110 LIPID PANEL (CARDIAC RISK) Reviewed date:11/21/2020 09:43:08 Interpretation: Performing Lab:[facility] [address] [place] [id number] , ,[place] [address] TRIGLYCERIDES LEVEL 200 <150 CHOLESTEROL LEVEL 185 <200 HDL CHOLESTEROL 54 >40 LDL CHOLESTEROL 91 <100 NON-HDL-C 131 CHOLESTEROL RISK RATIO 3.425 <5 MICROALBUMIN RANDOM Reviewed date:11/21/2020 09:43:34 Interpretation: Performing Lab:[facility] [address] [place] [address] , ,[facility] CREATININE, URINE 365.0 MALB URINE SIEMENS 84.5 FARHAD/CREAT RATIO 23.1 0.0-30.0 VITAMIN D 25-HYDROXY Reviewed date:11/21/2020 09:43:23 Interpretation: Performing Lab:[facility] [address] [place] [id number] , ,[place] [address] TOTAL 25(OH) VITAMIN D 41.9 30.0-100.0 REASON FOR VISIT 3 Months (30min) (Reason: f/u after labs), Reference #: [id number] page was print ed MEDICAL (GENERAL) HISTORY Type Description Date Medical [...] History right hip 1999 Surgical History Colonoscopy- [facility]- 1 ad enomatous polyp and 3 hyperplastic polyps. repeat 2-3 years 01/04 Surgical History Femur carter removed - ortho 07/2019 Surgical History Right total hip arthroplasty at [facility] by Martha Dent 12/27/2019; Hospitalization History above surgeries Goals Section No Information Health Concerns No Information MEDICAL EQUIPMENT No Information MENTAL STATUS No Information FUNCTIONAL STATUS No Information ASSESSMENTS Encounter Date Diagnosis Assessment Notes Treatment Notes Treatm ent Clinical Notes Nov, Type 2 diabetes mellitus wit hout complication, without long-term current use of insulin (ICD-10 - E11.9) Nov, Postprocedural hypothyroidism (ICD-10 - E89.0) 11/2020 17, 0.8 increase to 88mcg Nov, Hyperlipidemia, unspecified (ICD-10 - E78.5) lipids stable 02/2020 - repeat yearly lipids stable 02/2020 - repeat yearly Nov, Other chronic pain (ICD-10 - G89.29) chronic pain syndrome on chronic narcotic use (hydrocodone 7.5mg # 6/day MME 45) increase overdose risk. Extensive discussion on tapering dose MME 37.5 # 5/day for next 3 month. Defers pain management, therapy or other pain managment modalities Nov, Vitamin D deficiency, unspecified (ICD-10 - E55. 9) Nov, Chronic narcotic use (ICD-10 - F11.90) chronic pain syndrome on chronic narcotic use (hydrocodone 7.5mg # 6/day MME 45) increase overdose risk. Extensive discussion on tapering dose MME 37.5 # 5/day for next 3 month. Defers pain management, therapy or other pain managment modalities Nov, Other screening lung C T 04/2020 - stable, unchanged. Repeat yearly screening lung CT 04/2020 - stable, unchanged. Repeat yearly advise repeat echo due 2022 advise repeat echo due 2022 PLAN OF TREATMENT Medication Medication Name Sig [...] meal Orally twice daily for 30 Days Treatment Notes Assessment Notes Clinical Notes Postprocedural hypothyroidism 11/2020 17 , 0.8 increase to 88mcg Hyperlipidemia, unspecified lipids stable 02/2020 - re peat yearly lipids stable 02/2020 - repeat yearly Other chronic pain chronic pain syndrom e on chronic narcotic use (hydrocodone 7.5mg # 6/day MME 45) increase overdose risk.Extensive discussion on tapering dose MME 37.5 # 5/day for next 3 month.Defers pain management, therapy or other pain managment modalities Chronic narcotic use chronic pain syndro me on chronic narcotic use (hydrocodone 7.5mg # 6/day MME 45) increase overdose risk.Extensive discussion on tapering dose MME 37.5 # 5/day for next 3 month.Defers pain management, therapy or other pain managment modalities Future Test Test Name Order Date PAIN MGMT UR 13 PANEL [id number] HEMOGLOBIN A1c [id number] MICROALBUMIN RANDOM [id number] Comprehensive Metabolic Profile (CMP) [id number] LIPID PANEL (CARDIAC RISK) [id number] FREE T4 & TSH PANEL 67863790 VITAMIN D 25-HYDROXY [id number] Next Appt Details 4 Months Reason: Insurance Providers Payer Name Payer Address Payer Phone Insured Name Patient Relati onship to Insured Coverage Start Date Coverage End Date MEDICAID [employer] [address] [facility] [address] [employer] MEDICARE Part A and B [address] [facility] [phone] [employer]
--- OUTSIDE RECORDS SUMMARY | 2020-12-20 12:26 | CCD ---
Author Author [facility] Organization [facility] Address Unknown Phone Unavailable Care Team Providers Care Kosher Dietary Service Manager Name Role Phone Gustavo Sanchez MD Unavailable Unavailable Gustavo Sanchez MD Unavailable Unavailable Gustavo Sanchez MD Unavailable Unavailable Gustavo Sanchez MD Unavailable Unavailable Gustavo Sanchez MD Unavailable Unavailable Gustavo Sanchez MD Unavailable Unavailable Gustavo Sanchez MD Unavailable Unavailable Gustavo Sanchez MD Unavailable Unavailable Gustavo Sanchez MD Unavailable Unavailable Gustavo Sanchez MD Unavailable Unavailable Gustavo Sanchez MD Unavailable Unavailable Gustavo Sanchez MD Unavailable Unavailable Gustavo Sanchez MD Unavailable Unavailable Gustavo Sanchez MD Unavailable Unavailable Gustavo Sanchez MD Unavailable Unavailable Gustavo Sanchez MD Unavailable Unavailable Gustavo Sanchez MD Unavailable Unavailable Gustavo Sanchez MD Unavailable Unavailable Gustavo Sanchez MD Unavailable Unavailable Gustavo Sanchez MD Unavailable Unavailable Gustavo Sanchez MD Unavailable Unavailable Gustavo Sanchez MD Unavailable Unavailable Gustavo Sanchez MD Unavailable Unavailable Gustavo Sanchez MD Unavailable Unavailable Gustavo Sanchez MD Unavailable Unavailable Gustavo Sanchez MD Unavailable Unavailable Gustavo Sanchez MD Unavailable Unavailable Gustavo Sanchez MD Unavailable Unavailable LauraGustavo koo MD Unavailable Unavailable LauraGustavo koo MD Unavailable Unavailable Laura S Santi CURTIS Unavailable Unavailable Laura, S Santi CURTIS Unavailable Unavailable LauraGustavo koo MD Unavailable Unavailable Laura S Santi CURTIS Unavailable Unavailable Laura S Santi CURTIS Unavailable Unavailable Laura S Santi CURTIS Unavailable Unavailable Laura S Santi CURTIS Unavailable Unavailable Laura S Santi CURTIS Unavailable Unavailable LauraGustavo koo MD Unavailable Unavailable Gustavo Sanchez MD Unavailable Unavailable Gustavo Sanchez MD Unavailable Unavailable Gustavo Sanchez MD Unavailable Unavailable Gustavo Sanchez MD Unavailable Unavailable Gustavo Sanchez MD Unavailable Unavailable Gustavo Sanchez MD Unavailable Unavailable Gustavo Sanchez MD Unavailable Unavailable Gustavo Sanchez MD Unavailable Unavailable Gustavo Sanchez MD Unavailable Unavailable Gustavo Sanchez MD Unavailable Unavailable Gustavo Sanchez MD Unavailable Unavailable Fish, [facility] Unavailable Unavailabl e Fish, [facility] Unavailable Unavailabl e Fish, [facility] Unavailable Unavailabl e Fish, Sonali [facility], PA-C Unavailable Unavailabl e Fish, Sonali [facility], PA-C Unavailable Unavailabl e Fish, Sonali [facility], PA-C Unavailable Unavailabl e Fish, Sonali [facility], PA-C Unavailable Unavailabl e Fish, Sonali [facility], PA-C Unavailable Unavailabl e Fish, Sonali [facility], PA-C Unavailable Unavailabl e Fish, Sonali [facility], PA-C Unavailable Unavailabl e Fish, Sonali [facility], PA-C Unavailable Unavailabl e Fish, Sonali [facility], PA-C Unavailable Unavailabl e Fish, Sonali [facility], PA-C Unavailable Unavailabl e Fish, Sonali [facility], PA-C Unavailable Unavailabl e Fish, [facility], PA-C Unavailable Unavailabl e Fish, [facility], PA-C Unavailable Unavailabl e Fish, [facility], PA-C Unavailable Unavailabl e Fish, [facility], PA-C Unavailable Unavailabl e Fish, [facility], PA-C Unavailable Unavailabl e Fish, [facility], PA-C Unavailable Unavailabl e Fish, [facility], PA-C Unavailable Unavailabl e Fish, [facility], PA-C Unavailable Unavailabl e Fish, [facility], PA-C Unavailable Unavailabl e Fish, [facility], PA-C Unavailable Unavailabl e Fish, [facility], PA-C Unavailable Unavailabl e Fish, [facility], PA-C Unavailable Unavailabl e Fish, [facility], PA-C Unavailable Unavailabl e Fish, [facility], PA-C Unavailable Unavailabl e Fish, [facility], PA-C Unavailable Unavailabl e Fish, [facility], PA-C Unavailable Unavailabl e Fish, [facility], PA-C Unavailable Unavailabl e Fish, [facility], PA-C Unavailable Unavailabl e Fish, [facility], PA-C Unavailable Unavailabl e Fish, [facility], PA-C Unavailable Unavailabl e Fish, [facility], PA-C Unavailable Unavailabl e Fish, [facility], PA-C Unavailable Unavailabl e Aisha Guevara Unavailable Unavailable Aisha Guevara Unavailable Unavailable Aisha Guevara Unavailable Unavailable Aisha Guevara Unavailable Unavailable Aisha Guevara Unavailable Unavailable Aisha Guevara Unavailable Unavailable Aisha Guevara Unavailable Unavailable Aisha Guevara Unavailable Unavailable Aisha Guevara Unavailable Unavailable Aisha Guevara Unavailable Unavailable Aisha Guevara Unavailable Unavailable Aisha Guevara Unavailable Unavailable Aisha Guevara Unavailable Unavailable Aisha Guevara Unavailable Unavailable Aisha Guevara Unavailable Unavailable Aisha Guevara Unavailable Unavailable Aisha Guevara Unavailable Unavailable Guevara, M Barratt PA Unavailable Unavailable Guevara, M Barratt PA Unavailable Unavailable Guevara, M Barratt PA Unavailable Unavailable Guevara, M Barratt PA Unavailable Unavailable Guevara, M Barratt PA Unavailable Unavailable Guevara, M Barratt PA Unavailable Unavailable Guevara, M Barratt PA Unavailable Unavailable Guevara, M Barratt PA Unavailable Unavailable Guevara, M Barratt PA Unavailable Unavailable Guevara, M Barratt PA Unavailable Unavailable Guevara, M Barratt PA Unavailable Unavailable Guevara, M Barratt PA Unavailable Unavailable JAMA, G EDWARD RPA Unavailable Unavailable JAMA, G EDWARD RPA Unavailable Unavailable JAMA, G EDWARD RPA Unavailable Unavailable JAMA, G EDWARD RPA Unavailable Unavailable JAMA, G EDWARD RPA Unavailable Unavailable JAMA, G EDWARD RPA Unavailable Unavailable JAMA, G EDWARD RPA Unavailable Unavailable JAMA, G EDWARD RPA Unavailable Unavailable JAMA, G EDWARD RPA Unavailable Unavailable JAMA, G EDWARD RPA Unavailable Unavailable JAMA, G EDWARD RPA Unavailable Unavailable JAMA, G EDWARD RPA Unavailable Unavailable JAMA, G EDWARD RPA Unavailable Unavailable JAMA, G EDWARD RPA Unavailable Unavailable JAMA, G EDWARD RPA Unavailable Unavailable JAMA, G EDWARD RPA Unavailable Unavailable JAMA, G EDWARD RPA Unavailable Unavailable JAMA, G EDWARD RPA Unavailable Unavailable JAMA, G EDWARD RPA Unavailable Unavailable JAMA, G EDWARD RPA Unavailable Unavailable JAMA, G EDWARD RPA Unavailable Unavailable JAMA, G EDWARD RPA Unavailable Unavailable JAMA, G EDWARD RPA Unavailable Unavailable JAMA, G EDWARD RPA Unavailable Unavailable JAMA, G EDWARD RPA Unavailable Unavailable JAMA, G EDWARD RPA Unavailable Unavailable JAMA, G EDWARD RPA Unavailable Unavailable JAMA, G EDWARD RPA Unavailable Unavailable JAMA, G EDWARD RPA Unavailable Unavailable JAMA, G EDWARD RPA Unavailable Unavailable JAMA, G EDWARD RPA Unavailable Unavailable JAMA, G EDWARD RPA Unavailable Unavailable JAMA, G EDWARD RPA Unavailable Unavailable JAMA, G EDWARD RPA Unavailable Unavailable JAMA, G EDWARD RPA Unavailable Unavailable JAMA, G EDWARD RPA Unavailable Unavailable JAMA, G EDWARD RPA Unavailable Unavailable Martha Kirk MD Unavailable Unavailable Martha Kirk MD Unavailable Unavailable Martha Kirk MD Unavailable Unavailable Martha Kirk MD Unavailable Unavailable Martha Kirk MD Unavailable Unavailable Martha Kirk MD Unavailable Unavailable Martha Kirk MD Unavailable Unavailable Vaneenenaam, Martha Sanchez MD Unavailable Unavailable Vaneenenaam, Martha Sanchez MD Unavailable Unavailable Vaneenenaam, Martha Sanchez MD Unavailable Unavailable Vaneenenaam, Martha Sanchez MD Unavailable Unavailable Vaneenenaam, Martha Sanchez MD Unavailable Unavailable Vaneenenaam, Martha Sanchez MD Unavailable Unavailable Vaneenenaam, Martha Sanchez MD Unavailable Unavailable Vaneenenaam, Martha Sanchez MD Unavailable Unavailable Vaneenenaam, Martha Sanchez MD Unavailable Unavailable Vaneenenaam, Martha Sanchez MD Unavailable Unavailable Vaneenenaam, Martha Sanchez MD Unavailable Unavailable Vaneenenaam, Martha Sanchez MD Unavailable Unavailable Vaneenenaam, Martha Sanchez MD Unavailable Unavailable Vaneenenaam, Martha Sanchez MD Unavailable Unavailable Vaneenenaam, Martha Sanchez MD Unavailable Unavailable Vaneenenaam, Martha Sanchez MD Unavailable Unavailable Vaneenenaam, Martha Sanchez MD Unavailable Unavailable Vaneenenaam, Martha Sanchez MD Unavailable Unavailable Vaneenenaam, Martha Sanchez MD Unavailable Unavailable Vaneenenaam, Martha Sanchez MD Unavailable Unavailable Vaneenenaam, Martha Sanchez MD Unavailable Unavailable Vaneenenaam, Martha Sanchez MD Unavailable Unavailable Vaneenenaam, Martha Sanchez MD Unavailable Unavailable Vaneenenaam, Martha Sanchez MD Unavailable Unavailable Vaneenenaam, Martha Sanchez MD Unavailable Unavailable Vaneenenaam, Martha Sanchez MD Unavailable Unavailable Vaneenenaam, Martha Sanchez MD Unavailable Unavailable Vaneenenaam, Martha Sanchez MD Unavailable Unavailable Vaneenenaam, Martha Sanchez MD Unavailable Unavailable Vaneenenaam, Martha Sanchez MD Unavailable Unavailable Vaneenenaam, Martha Sanchez MD Unavailable Unavailable Vaneenenaam, Martha Sanchez MD Unavailable Unavailable Vaneenenaam, Martha Sanchez MD Unavailable Unavailable Vaneenenaam, Martha Sanchez MD Unavailable Unavailable Vaneenenaam, Martha Sanchez MD Unavailable Unavailable Vaneenenaam, Martha Sanchez MD Unavailable Unavailable Vaneenenaam, Martha Sanchez MD Unavailable Unavailable Vaneenenaam, Martha Sanchez MD Unavailable Unavailable Vaneenenaam, Martha Sanchez MD Unavailable Unavailable Re-disclosure Warning The records that you are about to access may contain information from federally-assisted alcohol or drug abuse programs. If such information is present, then the following federally mandated warning applies: This information has been disclosed to you from records protected by federal confidentiality rules (42 CFR part 2). The federal rules prohibit you from making any further disclosure of this information unless further disclosure is expressly permitted by the written consent of the person to whom it pertains or as otherwise permitted by 42 CFR part 2. A general authorization for the release of medical or other information is NOT sufficient for this purpose. The Federal rules restrict any use of the information to criminally investigate or prosecute any alcohol or drug abuse patient.The records that you are about to access may contain highly sensitive health information, the redisclosure of which is protected by Article 27-F of the [facility] Public Health law. If you continue you may have access to information: Regarding HIV / AIDS; Provided by facilities licensed or operated by the [facility] Office of Mental Health; or Provided by the [facility] Office for People With Developmental Disabilities. If such information is present, then the following [facility] mandated warning applies: This information has been disclosed to you from confidential records which are protected by state law. State law prohibits you from making any further disclosure of this information without the specific written consent of the person to whom it pertains, or as otherwise permitted by law. Any unauthorized further disclosure in violation of state law may result in a fine or usp sentence or both. A general authorization for the release of medical or other information is NOT sufficient authorization for further disc losure. Family History Family Member Name Family Member Gender Family Member Status Date o f Status Description Data Source(s) Unknown Male Problem MEDENT ([facility]) Unknown Unknown Problem MEDENT ([facility]) Unknown Female Problem MEDENT ([facility]) Unknown Female Problem MEDENT ([facility] ) Encounters Encounter Providers Location Date Indications Data Source(s ) Unknown [address] [facility] [place] [address] 12/01/2020 12:00:00 AM EDT eCW1 ([facility]) Unknown [address] [facility] [place] [address] 11/17/2020 12:00:00 AM EDT eCW1 ([facility]) Outpatient [address] [facility] [place] [address] 11/17/2020 12:00:00 AM EDT eCW1 ([facility]) Unknown [address] [facility] [place] [address] 11/17/2020 12:00:00 AM EDT eCW1 ([facility]) [place] [address] [facility] [place] [address] 11/02/2020 12:00:00 AM EDT eCW1 ([facility]) Outpatient Attender: Santi Sanchez MD Main Office 10/31/2020 02:15:00 PM EDT MEDENT ([facility]) [place] [address] [facility] [place] [address] 10/03/2020 12:00:00 AM EDT [facility]CW1 ([facility]) [place] [address] [facility] [place] [address] 09/19/2020 12:00:00 AM EDT [facility] [place] [address] [facility] [place] [address] 09/01/2020 12:00:00 AM EDT eCW1 ([facility]) Outpatient Attender: Judith NGUYEN Physical Therapy 02:15:00 PM EDT MEDENT ([facility]) Outpatient Attender: Judith NGUYEN Physical Therapy 01:15:00 PM EDT MEDENT ([facility]) [place] [address] [facility] [place] [address] 08/03/2020 12:00:00 AM EDT eCW1 ([facility]) [place] [address] [facility] [place] [address] 08/02/2020 12:00:00 AM EDT eCW1 ([facility]) Outpatient Attender: MIRI JAMA RPA 07/21 05:16:00 PM EDT - 07/21/2020 05:36:20 PM EDT [facility] ([facility] ) [place] [address] [facility] [place] [address] 07/05/2020 12:00:00 AM EDT eCW1 ([facility]) Outpatient Attender: Judith NGUYEN Physical Therapy 09:15:00 AM EDT MEDENT ([facility]) [place] [address] [facility] [place] [address] 06/01/2020 12:00:00 AM EDT eCW1 ([facility]) [place] [address] [facility] [place] [address] 05/25/2020 12:00:00 AM EDT eCW1 ([facility]) [place] [address] [facility] [place] [address] 05/02/2020 12:00:00 AM EDT eCW1 ([facility]) Unknown [address] [facility] [place] [address] 05/01/2020 12:00:00 AM EDT eCW1 ([facility]) Outpatient [address] [facility] [place] [address] 04/06/2020 12:00:00 AM EST eCW1 ([facility]) [place] [address] [facility] [place] [address] 04/06/2020 12:00:00 AM EST eCW1 ([facility]) [place]patient [address] [facility] [place] [address] 03/02/2020 12:00:00 AM EST eCW1 ([facility]) Office Visit Attender: Judith NGUYEN Physical Therapy 09:45:00 AM EST MEDENT ([facility]) [place] [address] [facility] [place] [address] 02/01/2020 12:00:00 AM EST eCW1 ([facility]) [place] [address] [facility] [place] [address] 01/21/2020 12:00:00 AM EST eCW1 ([facility]) Office Visit Attender: Judith NGUYEN Physical Therapy 08:45:00 AM EST MEDENT ([facility]) Office Visit Attender: Martha Kirk MD Physical Therap y 01/07/2020 01:45:00 PM EST MEDENT ([facility]) [place] [address] [facility] [place] [address] 12/25/2019 12:00:00 AM EST eCW1 ([facility]) Office Visit Attender: Kristin TURPIN PA-C Physical Therapy 12/21/2019 12:45:00 PM EST MEDENT ([facility]) [place] [address] [facility] [place] [address] 12/20/2019 12:00:00 AM EST eCW1 ([facility]) Outpatient [address] [facility] [place] [address] 12/16/2019 12:00:00 AM EDT eCW1 ([facility]) Outpatient [address] [facility] [place] [address] 12/01/2019 12:00:00 AM EDT eCW1 ([facility]) Unknown [address] [facility] [place] [address] 11/29/2019 12:00:00 AM EDT eCW1 ([facility]) Unknown [address] [facility] [place] [address] 11/23/2019 12:00:00 AM EDT eCW1 ([facility]) Unknown [address] [facility] [place] [address] 11/17/2019 12:00:00 AM EDT eCW1 ([facility]) Unknown [address] [facility] [place] [address] 11/09/2019 12:00:00 AM EDT eCW1 ([facility]) Unknown [address] [facility] [place] [address] 11/09/2019 12:00:00 AM EDT eCW1 ([facility]) Medications Medication Brand Name Start Date Product Form Dose Route Admi nistrative Instructions Pharmacy Instructions Status Indications Reaction Description Data Source(s) Acetaminophen 325 MG / Hydrocodone Kannan trate 7.5 MG Oral Tablet HYDROcodone- Acetaminophen 7.5-325 MG HYDROcodone-Acetaminophen 7.5-325 MG 12/01/2020 12:00:00 AM EDT 1.0 {tablet_as_needed} active HYDROcodone- Acetaminophen 7.5-325 MG eCW1 ([facility]) Acetaminophen 325 MG / Hydrocodone Kannan trate 7.5 MG Oral Tablet HYDROcodone- Acetaminophen 7.5-325 MG HYDROcodone-Acetaminophen 7.5-325 MG 11/02/2020 12:00:00 AM EDT 1.0 {tablet_as_needed} active HYDROcodone- Acetaminophen 7.5-325 MG eCW1 ([facility]) Sutab Sutab 10/31/2020 12:00:00 AM EDT active MEDENT ([facility]) Acetaminophen 325 MG / Hydrocodone Kannan trate 7.5 MG Oral Tablet HYDROcodone- Acetaminophen 7.5-325 MG HYDROcodone-Acetaminophen 7.5-325 MG 10/03/2020 12:00:00 AM EDT 1.0 {tablet_as_needed} active HYDROcodone- Acetaminophen 7.5-325 MG eCW1 ([facility]) Acetaminophen 325 MG / Hydrocodone Kannan trate 7.5 MG Oral Tablet HYDROcodone- Acetaminophen 7.5-325 MG HYDROcodone-Acetaminophen 7.5-325 MG 09/01/2020 12:00:00 AM EDT 1.0 {tablet_as_needed} active eCW1 ([facility]) Acetaminophen 325 MG / Hydrocodone Kannan trate 7.5 MG Oral Tablet HYDROcodone- Acetaminophen 7.5-325 MG HYDROcodone-Acetaminophen 7.5-325 MG 09/01/2020 12:00:00 AM EDT 1.0 {tablet_as_needed} active HYDROcodone- Acetaminophen 7.5-325 MG eCW1 ([facility]) Levothyroxine Sodium 0.088 MG Oral Tablet [Synthroid] Synthroid 88 MCG Synthroid 88 MCG 08/03/2020 12:00:00 AM EDT active Synthroid 88 MCG eCW1 ([facility]) Levothyroxine Sodium 0.075 MG Oral Tablet [Synthroid] Synthroid 75 MCG Synthroid 75 MCG 08/03/2020 12:00:00 AM EDT active Synthroid 75 MCG eCW1 ([facility]) Levothyroxine Sodium 0.075 MG Oral Tablet [Synthroid] Synthroid 75 MCG Synthroid 75 MCG 08/03/2020 12:00:00 AM EDT active Synthroid 75 MCG eCW1 ([facility]) Levothyroxine Sodium 0.075 MG Oral Tablet [Synthroid] Synthroid 75 MCG Synthroid 75 MCG 08/03/2020 12:00:00 AM EDT active Synthroid 75 MCG eCW1 ([facility]) Levothyroxine Sodium 0.075 MG Oral Tablet [Synthroid] Synthroid 75 MCG Synthroid 75 MCG 08/03/2020 12:00:00 AM EDT active Synthroid 75 MCG eCW1 ([facility]) Levothyroxine Sodium 0.088 MG Oral Tablet [Synthroid] Synthroid 88 MCG Synthroid 88 MCG 08/03/2020 12:00:00 AM EDT active Synthroid 88 MCG eCW1 ([facility]) Levothyroxine Sodium 0.088 MG Oral Tablet [Synthroid] Synthroid 88 MCG Synthroid 88 MCG 08/03/2020 12:00:00 AM EDT active Synthroid 88 MCG eCW1 ([facility]) Levothyroxine Sodium 0.075 MG Oral Tablet [Synthroid] Synthroid 75 MCG Synthroid 75 MCG 08/03/2020 12:00:00 AM EDT active eCW1 ([facility]) Levothyroxine Sodium 0.075 MG Oral Tablet [Synthroid] Synthroid 75 MCG Synthroid 75 MCG 08/03/2020 12:00:00 AM EDT active Synthroid 75 MCG eCW1 ([facility]) Levothyroxine Sodium 0.075 MG Oral Tablet [Synthroid] Synthroid 75 MCG Synthroid 75 MCG 08/03/2020 12:00:00 AM EDT active Synthroid 75 MCG eCW1 ([facility]) Acetaminophen 325 MG / Hydrocodone Kannan trate 7.5 MG Oral Tablet Hydrocodone- Acetaminophen 7.5-325 MG Hydrocodone-Acetaminophen 7.5-325 MG 07/06/2020 12:00:00 AM EDT 1.0 {tablet_as_needed} active Hydrocodone- Acetaminophen 7.5-325 MG eCW1 ([facility]) Acetaminophen 325 MG / Hydrocodone Kannan trate 7.5 MG Oral Tablet HYDROcodone- Acetaminophen 7.5-325 MG HYDROcodone-Acetaminophen 7.5-325 MG 07/06/2020 12:00:00 AM EDT 1.0 {tablet_as_needed} active HYDROcodone- Acetaminophen 7.5-325 MG eCW1 ([facility]) Acetaminophen 325 MG / Hydrocodone Kannan trate 7.5 MG Oral Tablet HYDROcodone- Acetaminophen 7.5-325 MG HYDROcodone-Acetaminophen 7.5-325 MG 07/06/2020 12:00:00 AM EDT 1.0 {tablet_as_needed} active HYDROcodone- Acetaminophen 7.5-325 MG eCW1 ([facility]) Acetaminophen 325 MG / Hydrocodone Kannan trate 7.5 MG Oral Tablet Hydrocodone- Acetaminophen 7.5-325 MG Hydrocodone-Acetaminophen 7.5-325 MG 06/02/2020 12:00:00 AM EDT 1.0 {tablet_as_needed} active Hydrocodone- Acetaminophen 7.5-325 MG eCW1 ([facility]) Levothyroxine Sodium 0.088 MG Oral Tablet [Synthroid] Synthroid 88 MCG Synthroid 88 MCG 05/25/2020 12:00:00 AM EDT active Synthroid 88 MCG eCW1 ([facility]) Levothyroxine Sodium 0.088 MG Oral Tablet [Synthroid] Synthroid 88 MCG Synthroid 88 MCG 05/25/2020 12:00:00 AM EDT active Synthroid 88 MCG eCW1 ([facility]) Levothyroxine Sodium 0.088 MG Oral Tablet [Synthroid] Synthroid 88 MCG Synthroid 88 MCG 05/25/2020 12:00:00 AM EDT active Synthroid 88 MCG eCW1 ([facility]) Acetaminophen 325 MG / Hydrocodone Kannan trate 7.5 MG Oral Tablet Hydrocodone- Acetaminophen 7.5-325 MG Hydrocodone-Acetaminophen 7.5-325 MG 05/04/2020 12:00:00 AM EDT 1.0 {tablet_as_needed} active Hydrocodone- Acetaminophen 7.5-325 MG eCW1 ([facility]) Acetaminophen 325 MG / Hydrocodone Kannan trate 7.5 MG Oral Tablet Hydrocodone- Acetaminophen 7.5-325 MG Hydrocodone-Acetaminophen 7.5-325 MG 05/04/2020 12:00:00 AM EDT 1.0 {tablet_as_needed} active Hydrocodone- Acetaminophen 7.5-325 MG eCW1 ([facility]) Acetaminophen 325 MG / Hydrocodone Kannan trate 7.5 MG Oral Tablet Hydrocodone- Acetaminophen 7.5-325 MG Hydrocodone-Acetaminophen 7.5-325 MG 05/04/2020 12:00:00 AM EDT 1.0 {tablet_as_needed} active Hydrocodone- Acetaminophen 7.5-325 MG eCW1 ([facility]) Metformin hydrochloride 500 MG Oral Tablet Metformin H Cl 500 MG Metformin HCl 500 MG 04/06/2020 12:00:00 AM EST 1.0 {tablet_with_a_meal} active Metformin HCl 500 MG eCW1 ([facility]) Metformin hydrochloride 500 MG Oral Tablet Metformin H Cl 500 MG Metformin HCl 500 MG 04/06/2020 12:00:00 AM EST 1.0 {tablet_with_a_meal} active Metformin HCl 500 MG eCW1 ([facility]) Metformin hydrochloride 500 MG Oral Tablet metFORMIN H Cl 500 MG metFORMIN HCl 500 MG 04/06/2020 12:00:00 AM EST active metFORMIN HCl 500 MG eCW1 ([facility]) Metformin hydrochloride 500 MG Oral Tablet Metformin H Cl 500 MG Metformin HCl 500 MG 04/06/2020 12:00:00 AM EST 1.0 {tablet_with_a_meal} active Metformin HCl 500 MG eCW1 ([facility]) Metformin hydrochloride 500 MG Oral Tablet metFORMIN H Cl 500 MG metFORMIN HCl 500 MG 04/06/2020 12:00:00 AM EST active metFORMIN HCl 500 MG eCW1 ([facility]) Metformin hydrochloride 500 MG Oral Tablet Metformin H Cl 500 MG Metformin HCl 500 MG 04/06/2020 12:00:00 AM EST 1.0 {tablet_with_a_meal} active Metformin HCl 500 MG eCW1 ([facility]) Metformin hydrochloride 500 MG Oral Tablet metFORMIN H Cl 500 MG metFORMIN HCl 500 MG 04/06/2020 12:00:00 AM EST active eCW1 ([facility]) Metformin hydrochloride 500 MG Oral Tablet Metformin H Cl 500 MG Metformin HCl 500 MG 04/06/2020 12:00:00 AM EST 1.0 {tablet_with_a_meal} active Metformin HCl 500 MG eCW1 ([facility]) Metformin hydrochloride 500 MG Oral Tablet metFORMIN H Cl 500 MG metFORMIN HCl 500 MG 04/06/2020 12:00:00 AM EST active metFORMIN HCl 500 MG eCW1 ([facility]) Metformin hydrochloride 500 MG Oral Tablet metFORMIN H Cl 500 MG metFORMIN HCl 500 MG 04/06/2020 12:00:00 AM EST active metFORMIN HCl 500 MG eCW1 ([facility]) Metformin hydrochloride 500 MG Oral Tablet Metformin H Cl 500 MG Metformin HCl 500 MG 04/06/2020 12:00:00 AM EST 1.0 {tablet_with_a_meal} active Metformin HCl 500 MG eCW1 ([facility]) Metformin hydrochloride 500 MG Oral Tablet Metformin H Cl 500 MG Metformin HCl 500 MG 04/06/2020 12:00:00 AM EST 1.0 {tablet_with_a_meal} active Metformin HCl 500 MG eCW1 ([facility]) Metformin hydrochloride 500 MG Oral Tablet metFORMIN H Cl 500 MG metFORMIN HCl 500 MG 04/06/2020 12:00:00 AM EST active metFORMIN HCl 500 MG eCW1 ([facility]) Triamcinolone Acetonide 0.005 MG/MG Topi julio Ointment Triamcinolone Acetonide 0.5 % Triamcinolone Acetonide 0.5 % 03/02/2020 12:00:00 AM EST 1.0 {application} active Triamcinolone Aceton alma 0.5 % eCW1 ([facility]) Acetaminophen 325 MG / Hydrocodone Kannan trate 7.5 MG Oral Tablet Hydrocodone- Acetaminophen 7.5-325 MG Hydrocodone-Acetaminophen 7.5-325 MG 03/02/2020 12:00:00 AM EST 1.0 {tablet_as_needed} active Hydrocodone- Acetaminophen 7.5-325 MG eCW1 ([facility]) Acetaminophen 325 MG / Hydrocodone Kannan trate 7.5 MG Oral Tablet Hydrocodone- Acetaminophen 7.5-325 MG Hydrocodone-Acetaminophen 7.5-325 MG 02/01/2020 12:00:00 AM EST 1.0 {tablet_as_needed} active Hydrocodone- Acetaminophen 7.5-325 MG eCW1 ([facility]) Acetaminophen 325 MG / Hydrocodone Kannan trate 7.5 MG Oral Tablet Hydrocodone- Acetaminophen 7.5-325 MG Hydrocodone-Acetaminophen 7.5-325 MG 01/06/2020 12:00:00 AM EST 1.0 {tablet_as_needed} active Hydrocodone- Acetaminophen 7.5-325 MG eCW1 ([facility]) Acetaminophen 325 MG / Hydrocodone Kannan trate 7.5 MG Oral Tablet Hydrocodone- Acetaminophen 7.5-325 MG Hydrocodone-Acetaminophen 7.5-325 MG 01/06/2020 12:00:00 AM EST 1.0 {tablet_as_needed} active Hydrocodone- Acetaminophen 7.5-325 MG eCW1 ([facility]) cetirizine hydrochloride 10 MG Oral Tablet Cetirizine HCl 10 MG Cetirizine HCl 10 MG 12/01/2019 12:00:00 AM EDT 1.0 {tablet} activ e Cetirizine HCl 10 MG eCW1 ([facility]) cetirizine hydrochloride 10 MG Oral Tablet Cetirizine HCl 10 MG Cetirizine HCl 10 MG 12/01/2019 12:00:00 AM EDT 1.0 {tablet} activ e Cetirizine HCl 10 MG eCW1 ([facility]) Camphor 5 MG/ML / Menthol 5 MG/ML Topical Lotion [Sarn a] Sarna 0.5-0.5 % Sarna 0.5-0.5 % 12/01/2019 12:00:00 AM EDT 1.0 {application_as_needed} active Sarna 0.5-0.5 % eCW1 ([facility]) Levothyroxine Sodium 0.1 MG Oral Tablet [Synthroid] Sy nthroid 100 MCG Synthroid 100 MCG 12/01/2019 12:00:00 AM EDT active Synthroid 100 MCG eCW1 ([facility]) Camphor 5 MG/ML / Menthol 5 MG/ML Topical Lotion [Sarn a] Sarna 0.5-0.5 % Sarna 0.5-0.5 % 12/01/2019 12:00:00 AM EDT 1.0 {application_as_needed} active Sarna 0.5-0.5 % eCW1 ([facility]) Camphor 5 MG/ML / Menthol 5 MG/ML Topical Lotion [Sarn a] Sarna 0.5-0.5 % Sarna 0.5-0.5 % 12/01/2019 12:00:00 AM EDT 1.0 {application_as_needed} active Sarna 0.5-0.5 % eCW1 ([facility]) cetirizine hydrochloride 10 MG Oral Tablet Cetirizine HCl 10 MG Cetirizine HCl 10 MG 12/01/2019 12:00:00 AM EDT 1.0 {tablet} activ e Cetirizine HCl 10 MG eCW1 ([facility]) Triamcinolone Acetonide 5 MG/ML Topical Cream Triamcin olone Acetonide 0.5 % Triamcinolone Acetonide 0.5 % 12/01/2019 12:00:00 AM EDT 1.0 {appli cation} suspended Triamcinolone Acetonide 0 .5 % eCW1 ([facility]) cetirizine hydrochloride 10 MG Oral Tablet Cetirizine HCl 10 MG Cetirizine HCl 10 MG 12/01/2019 12:00:00 AM EDT 1.0 {tablet} activ e Cetirizine HCl 10 MG eCW1 ([facility]) Triamcinolone Acetonide 5 MG/ML Topical Cream Triamcin olone Acetonide 0.5 % Triamcinolone Acetonide 0.5 % 12/01/2019 12:00:00 AM EDT 1.0 {appli cation} active Triamcinolone Acetonide 0 .5 % eCW1 ([facility]) cetirizine hydrochloride 10 MG Oral Tablet Cetirizine HCl 10 MG Cetirizine HCl 10 MG 12/01/2019 12:00:00 AM EDT 1.0 {tablet} activ e Cetirizine HCl 10 MG eCW1 ([facility]) Levothyroxine Sodium 0.1 MG Oral Tablet [Synthroid] Sy nthroid 100 MCG Synthroid 100 MCG 12/01/2019 12:00:00 AM EDT active Synthroid 100 MCG eCW1 ([facility]) Levothyroxine Sodium 0.1 MG Oral Tablet [Synthroid] Sy nthroid 100 MCG Synthroid 100 MCG 12/01/2019 12:00:00 AM EDT active Synthroid 100 MCG eCW1 ([facility]) Triamcinolone Acetonide 5 MG/ML Topical Cream Triamcin olone Acetonide 0.5 % Triamcinolone Acetonide 0.5 % 12/01/2019 12:00:00 AM EDT 1.0 {appli cation} suspended Triamcinolone Acetonide 0 .5 % eCW1 ([facility]) Levothyroxine Sodium 0.1 MG Oral Tablet [Synthroid] Sy nthroid 100 MCG Synthroid 100 MCG 12/01/2019 12:00:00 AM EDT active Synthroid 100 MCG eCW1 ([facility]) Triamcinolone Acetonide 5 MG/ML Topical Cream Triamcin olone Acetonide 0.5 % Triamcinolone Acetonide 0.5 % 12/01/2019 12:00:00 AM EDT 1.0 {appli cation} suspended Triamcinolone Acetonide 0 .5 % eCW1 ([facility]) Camphor 5 MG/ML / Menthol 5 MG/ML Topical Lotion [Sarn a] Sarna 0.5-0.5 % Sarna 0.5-0.5 % 12/01/2019 12:00:00 AM EDT 1.0 {application_as_needed} active Sarna 0.5-0.5 % eCW1 ([facility]) Levothyroxine Sodium 0.1 MG Oral Tablet [Synthroid] Sy nthroid 100 MCG Synthroid 100 MCG 12/01/2019 12:00:00 AM EDT active Synthroid 100 MCG eCW1 ([facility]) Triamcinolone Acetonide 5 MG/ML Topical Cream Triamcin olone Acetonide 0.5 % Triamcinolone Acetonide 0.5 % 12/01/2019 12:00:00 AM EDT 1.0 {appli cation} suspended Triamcinolone Acetonide 0 .5 % eCW1 ([facility]) Camphor 5 MG/ML / Menthol 5 MG/ML Topical Lotion [Sarn a] Sarna 0.5-0.5 % Sarna 0.5-0.5 % 12/01/2019 12:00:00 AM EDT 1.0 {application_as_needed} active Sarna 0.5-0.5 % eCW1 ([facility]) cetirizine hydrochloride 10 MG Oral Tablet Cetirizine HCl 10 MG Cetirizine HCl 10 MG 12/01/2019 12:00:00 AM EDT 1.0 {tablet} activ e Cetirizine HCl 10 MG eCW1 ([facility]) Levothyroxine Sodium 0.1 MG Oral Tablet [Synthroid] Sy nthroid 100 MCG Synthroid 100 MCG 12/01/2019 12:00:00 AM EDT active Synthroid 100 MCG eCW1 ([facility]) Triamcinolone Acetonide 5 MG/ML Topical Cream Triamcin olone Acetonide 0.5 % Triamcinolone Acetonide 0.5 % 12/01/2019 12:00:00 AM EDT 1.0 {appli cation} suspended Triamcinolone Acetonide 0 .5 % eCW1 ([facility]) Camphor 5 MG/ML / Menthol 5 MG/ML Topical Lotion [Sarn a] Sarna 0.5-0.5 % Sarna 0.5-0.5 % 12/01/2019 12:00:00 AM EDT 1.0 {application_as_needed} active Sarna 0.5-0.5 % eCW1 ([facility]) Mupirocin 0.02 MG/MG Topical Ointment [Bactroban] Bactroban 11/30/2019 12:00:00 AM EDT active MEDENT (No [facility]) chlorhexidine gluconate 40 MG/ML Medicated Liquid Soap [Hibi clens] Hibiclens 11/30/2019 12:00:00 AM EDT active MEDENT ([facility]) Acetaminophen 325 MG / Hydrocodone Kannan trate 7.5 MG Oral Tablet Hydrocodone- Acetaminophen 7.5-325 MG Hydrocodone-Acetaminophen 7.5-325 MG 11/29/2019 12:00:00 AM EDT 1.0 {tablet_as_needed} active Hydrocodone- Acetaminophen 7.5-325 MG eCW1 ([facility]) Acetaminophen 325 MG / Hydrocodone Kannan trate 7.5 MG Oral Tablet Hydrocodone- Acetaminophen 7.5-325 MG Hydrocodone-Acetaminophen 7.5-325 MG 11/29/2019 12:00:00 AM EDT 1.0 {tablet_as_needed} active Hydrocodone- Acetaminophen 7.5-325 MG eCW1 ([facility]) Acetaminophen 325 MG / Hydrocodone Kannan trate 7.5 MG Oral Tablet Hydrocodone- Acetaminophen 7.5-325 MG Hydrocodone-Acetaminophen 7.5-325 MG 11/29/2019 12:00:00 AM EDT 1.0 {tablet_as_needed} active Hydrocodone- Acetaminophen 7.5-325 MG eCW1 ([facility]) Acetaminophen 325 MG / Hydrocodone Kannan trate 7.5 MG Oral Tablet Hydrocodone- Acetaminophen 7.5-325 MG Hydrocodone-Acetaminophen 7.5-325 MG 11/29/2019 12:00:00 AM EDT 1.0 {tablet_as_needed} active Hydrocodone- Acetaminophen 7.5-325 MG eCW1 ([facility]) Insurance Providers Payer name Policy type / Coverage type Policy ID Covered green party ID Covered green party's relationship to [place] Policy [place] Plan Information [facility] [id number] [place] Primary [id number] Self [id number] [place] Medicare Primary [id number] Self [id number] [place] Medicare Primary [id number] Self [id number] [place] Medicare Primary [id number] Self [place] [id number] Self [id number] [place] [id number] Self [id number] Medicaid Medicaid [id number] Self [id number] [facility] Medicare Medicare Part B [id number] Self [id number] ANSI-Medicare Part B [id number] ANSI-Medicaid [id number] ANSI-Medicare Part B [id number] ANSI-Medicare Part B [id number] ANSI-Medicaid [id number] ANSI-Medicare Part B [id number] ANSI-Medicaid [id number] ANSI-Medicaid [id number] ANSI-Medicare Part B [id number] ANSI-Medicare Part B [id number] ANSI-Medicaid [id number] ANSI-Medicare Part B [id number] ANSI-Medicaid [id number] ANSI-Medicare Part B [id number] ANSI-Medicaid [id number] ANSI-Medicaid [id number] ANSI-Medicare Part B [id number] ANSI-Medicare Part B [id number] ANSI-Medicaid [id number] ANSI-Medicare Part B [id number] ANSI-Medicaid [id number] ANSI-Medicare Part B [id number] ANSI-Medicaid [id number] ANSI-Medicare Part B [id number] ANSI-Medicaid [id number] ANSI-Medicare Part B [id number] ANSI-Medicaid [id number] ANSI-Medicaid [id number] ANSI-Medicare Part B [id number] ANSI-Medicare Part B [id number] ANSI-Medicaid [id number] ANSI-Medicare Part B [id number] ANSI-Medicaid [id number] ANSI-Medicare Part B [id number] ANSI-Medicaid [id number] ANSI-Medicare Part B [id number] ANSI-Medicaid [id number] ANSI-Medicare Part B [id number] ANSI-Medicaid [id number] ANSI-Medicare Part B [id number] ANSI-Medicaid [id number] ANSI-Medicare Part B [id number] ANSI-Medicaid [id number] ANSI-Medicaid [id number] ANSI-Medicare Part B [id number] ANSI-Medicaid [id number] ANSI-Medicare Part B [id number] ANSI-Medicaid [id number] ANSI-Medicare Part B [id number] ANSI-Medicaid [id number] ANSI-Medicare Part B [id number] ANSI-Medicaid [id number] ANSI-Medicare Part B [id number] MEDICARE [id number] ANSI-Medicare Part B [id number] ANSI-Medicaid [id number] ANSI-Medicaid [id number] ANSI-Medicare Part B [id number] ANSI-Medicaid [id number] ANSI-Medicare Part B [id number] ANSI-Medicare Part B [id number] ANSI-Medicaid [id number] ANSI-Medicare Part B [id number] ANSI-Medicaid [id number] ANSI-Medicaid [id number] ANSI-Medicare Part B [id number] ANSI-Medicaid [id number] ANSI-Medicare Part B [id number] ANSI-Medicare Part B [id number] ANSI-Medicaid [id number] MEDICARE C [id number] S [id number] W ANSI-Medicaid [id number] ANSI-Medicare Part B [id number] ANSI-Medicare Part B [id number] ANSI-Medicaid [id number] ANSI-Medicaid [id number] ANSI-Medicare Part B [id number] ANSI-Medicaid [id number] ANSI-Medicare Part B [id number] Medicaid [place] Medigap Part B [id number] Self [id number] [facility] Medigap Part B [id number] Self [id number] [place] Med[place]ap Part [place] [id number] Self [id number] Medicare [place] Medicare Primary [id number] Self [id number] Medicaid [place] Med[place] Part B [id number] Self [id number] [place] [id number] Self [id number] [place] Med[place] Part [place] [id number] Self [id number] Medicaid [place] Medigap Part B [id number] Self [id number] Medicaid [place] Medigap Part B [id number] Self [facility] Commercial [id number] [facility] Health Maintenance Organization (HMO) [id number] [facility] O [id number] S [id number] [facility] P UNAVAILABLE [id number] C UNAVAILABLE [employer]CE[employer] BCBS P [id number] S [id number] [facility] MEDICAID [id number] SP [id number] M [id number] MEDICARE [id number] SP [id number] EMEDNY [id number] SP [id number] MEDICAID [id number] SP [id number] MEDICARE C [id number] S [id number] D97 MEDICAID M [id number] S [id number] ANSI-Medicaid [id number] ANSI-Medicare Part B [id number] ANS-Medicaid [id number] Problems, Conditions, and Diagnoses Code Display Name Description Problem Type Effective Dates Data Source(s) I35.8 [id number] Aortic valve sclerosis Problem 08/03/2020 12 :00:00 AM EDT eCW1 ([facility]) M16.11 [id number] Unilateral primary osteoarthritis, rig ht hip Problem 12/16/2019 12:00:00 AM EDT eCW1 ([facility]) Surgeries/Procedures Procedure Description Date Indications Data Source(s) OFFICE OUTPATIENT NEW 30 MINUTES 10/31/2020 12:00:00 A M EDT MEDENT ([facility]) OFFICE OUTPATIENT VISIT 25 MINUTES 08/24/2020 12:00:00 AM EDT MEDENT ([facility]) ARTHROCENTESIS ASPIR&/INJECTION MAJOR JT/BURSA 021 12:00:00 AM EDT MEDENT ([facility]) RADIOLOGIC EXAM KNEE COMPLETE 4/MORE VIEWS 08/07/2020 12:00:00 AM EDT MEDENT ([facility]) OFFICE OUTPATIENT VISIT 25 MINUTES 08/07/2020 12:00:00 AM EDT MEDENT ([facility]) ARTHROCENTESIS ASPIR&/INJECTION MAJOR JT/BURSA 021 12:00:00 AM EDT MEDENT ([facility]) X-Ray Hips Bilateral With Pelvis 3-4 Views 06/26/2020 12:00:00 AM EDT MEDENT ([facility]) OFFICE OUTPATIENT VISIT 25 MINUTES 06/26/2020 12:00:00 AM EDT MEDENT ([facility]) X-Ray Hip Unilateral With Pelvis 2-3 Views 02/22/2020 12:00:00 AM EST MEDENT ([facility]) ARTHRP ACETBLR/PROX FEM PROSTC AGRFT/ALGRFT 12/27/2019 12:00:00 AM EST MEDENT ([facility]) ARTHRP ACETBLR/PROX FEM PROSTC AGRFT/ALGRFT 12/27/2019 12:00:00 AM EST MEDENT ([facility]) Results ID Date Data Source LIPID PANEL (CARDIAC RISK) 11/20/2020 12:00:00 AM EDT eCW1 ( [facility]) Name Value Range Interpretation Code Description Data Randee rce(s) Supporting Document(s) Triglyceride [Mass/volume] in Serum or Plasma by calculation 200 <150 TRIGLYCERIDES LEVEL eCW1 ([facility]) Cholesterol in HDL [Moles/volume] in Serum or Plasma 54 >40 HDL CHOLESTEROL eCW1 ([facility]) Cholesterol [Moles/volume] in Serum or Plasma 185 <200 CHOLESTEROL LEVEL eCW1 ([facility]) 131 NON-HDL-C eCW1 ([facility]) Cholesterol in LDL [Mass/volume] in Serum or Plasma by calculation 91 <100 LDL CHOLESTEROL eCW1 ([facility]) 3.425 <5 CHOLESTEROL RISK RATIO eCW1 ([facility]) ID Date Data Source [id number] 11/20/2020 12:00:00 AM EDT eCW1 ([facility]) Name Value Range Interpretation Code Description Data Randee rce(s) Supporting Document(s) Hemoglobin A1c/Hemoglobin.total in Blood 6.8 HEMOGLOBIN A1c eCW1 ([facility]) ID Date Data Source FREE T4 & TSH PANEL 11/20/2020 12:00:00 AM EDT eCW1 ([facility]) Name Value Range Interpretation Code Description Data Randee rce(s) Supporting Document(s) 0.88 0.76-1.46 FREE T4 eCW1 ([facility]) 17.800 0.358-3.740 THYROID STIMULATING HORM ONE eCW1 ([facility]) ID Date Data Source Comprehensive Metabolic Profile (CMP) 11/20/2020 12:00:00 AM EDT eCW1 ([facility]) Name Value Range Interpretation Code Description Data Randee rce(s) Supporting Document(s) 119 70-100 GLUCOSE, FASTING eCW1 ([facility]) 10 7-18 BLOOD UREA NITROGEN eCW1 ([facility]) > 60.0 >45 GLOMERULAR FILTRATION RATE eCW 1 ([facility]) 0.87 0.55-1.30 CREATININE FOR GFR eCW1 ([facility]) 140 136-145 SODIUM LEVEL eCW1 ([facility]) 4.2 3.5-5.1 POTASSIUM SERUM eCW1 ([facility]) 106 98-107 CHLORIDE LEVEL eCW1 ([facility]) 29 21-32 CARBON DIOXIDE LEVEL eCW1 ([facility]) 21 7-37 AST/SGOT eCW1 ([facility]) 61 45-117 ALKALINE PHOSPHATASE eCW1 ([facility]) 26 12-78 ALT/SGPT eCW1 ([facility]) 8.9 8.8-10.2 CALCIUM LEVEL eCW1 ([facility]) 7.1 6.4-8.2 TOTAL PROTEIN eCW1 ([facility]) 3.9 3.2-5.2 ALBUMIN eCW1 ([facility]) 1.2 1.2-2.2 ALBUMIN/GLOBULIN RATIO eCW1 ([facility]) 0.3 0.2-1.0 BILIRUBIN,TOTAL eCW1 ([facility]) ID Date Data Source VITAMIN D [id number] 11/20/2020 12:00:00 AM EDT eCW1 ([facility]) Name Value Range Interpretation Code Description Data Randee rce(s) Supporting Document(s) 41.9 30.0-100.0 TOTAL 25(OH) VITAMIN D eC W1 ([facility]) ID Date Data Source [id number] 11/20/2020 12:00:00 AM EDT eCW1 ([facility]) Name Value Range Interpretation Code Description Data Randee rce(s) Supporting Document(s) Albumin/Creatinine [Mass Ratio] in Urine 84.5 MALB URINE SIEMENS eCW1 ([facility]) Microalbumin/Creatinine [Ratio] in Urine 23.1 0.0-30.0 FARHAD/CREAT RATIO eCW1 ([facility]) Microalbumin/Creatinine [Mass Ratio] in Urine 365.0 CREATININE, URINE eCW1 ([facility]) ID Date Data Source Basic Metabolic Profile (BMP) 08/03/2020 12:00:00 AM EDT eCW 1 ([facility]) Name Value Range Interpretation Code Description Data Randee rce(s) Supporting Document(s) 158 70-100 GLUCOSE, FASTING eCW1 ([facility]) 12 7-18 BLOOD UREA NITROGEN eCW1 ([facility]) 0.70 0.55-1.30 CREATININE FOR GFR eCW1 ([facility]) > 60.0 >45 GLOMERULAR FILTRATION RATE eCW 1 ([facility]) 141 136-145 SODIUM LEVEL eCW1 ([facility]) 4.9 3.5-5.1 POTASSIUM SERUM eCW1 ([facility]) 107 98-107 CHLORIDE LEVEL eCW1 ([facility]) 8.9 8.8-10.2 CALCIUM LEVEL eCW1 ([facility]) 30 21-32 CARBON DIOXIDE LEVEL eCW1 ([facility]) ID Date Data Source [id number] 12/22/2019 12:30:00 PM EST [facility] Name Value Range Interpretation Code Description Data Randee rce(s) Supporting Document(s) SARS coronavirus 2 RNA [facility] This lab was ordered by [facility] and reported by [facility]. ID Date Data Source [id number] 12/13/2019 11:13:00 AM EDT MEDENT ([facility]) Name Value Range Interpretation Code Description Data Randee rce(s) Supporting Document(s) Prothrombin Time 12.2 s 12.5-14.3 MEDENT ([facility]) Inr 0.89 MEDENT ([facility]) THERAPUTIC HUMAN INR VALUES INDICATIONS NORMAL RANGES PROPHYLAXIS/TREATMENT OF: VENOUS THROMBOSIS 2.0-3.0 PULMONARY EMBOLISM 2.0-3.0 PREVENTION OF SYSTEMIC EMBOLISM FROM: TISSUE HEART VALVES 2.0-3.0 ACUTE MYOCARDIAL INFARCTION 2.0-3.0 VALVULAR HEART DISEASE 2.0-3.0 ATRIAL FIBRILLATION 2.0-3.0 MECHANICAL VALVES(HIGH RISK) 2.5-3.5 RECURRENT MYOCARDIAL INFARCTION 2.5-3.5 ID Date Data Source CBC with Differential 12/01/2019 05:40:57 AM EDT eCW1 ([facility]) Name Value Range Interpretation Code Description Data Randee rce(s) Supporting Document(s) 6.3 eCW1 ([facility]) 4.34 eCW1 ([facility]) 94.0 eCW1 ([facility]) 13.0 eCW1 ([facility]) 40.8 eCW1 ([facility]) 235 eCW1 ([facility]) 31.9 eCW1 ([facility]) 12.8 eCW1 ([facility]) 30.0 eCW1 ([facility]) 28.8 eCW1 ([facility]) 10.4 eCW1 ([facility]) 2.2 eCW1 ([facility]) 57.8 eCW1 ([facility]) 0.7 eCW1 ([facility]) 3.6 eCW1 ([facility]) 0.1 eCW1 ([facility]) 1.8 eCW1 ([facility]) 0.5 eCW1 ([facility]) 0.0 eCW1 ([facility]) Procedure Social History Code Duration Value Status Description Data Source(s ) Smoking 11/17/2020 12:00:00 AM EDT Former Smoker completed Former Smoker eCW1 ([facility]) Smoking 11/17/2020 12:00:00 AM EDT Former Smoker completed Former Smoker eCW1 ([facility]) Smoking 11/17/2020 12:00:00 AM EDT Former Smoker completed Former Smoker eCW1 ([facility]) Smoking 11/17/2020 12:00:00 AM EDT Former Smoker completed Former Smoker eCW1 ([facility]) Smoking 08/03/2020 12:00:00 AM EDT Former Smoker completed Former Smoker eCW1 ([facility]) Smoking 08/03/2020 12:00:00 AM EDT Former Smoker completed Former Smoker eCW1 ([facility]) Smoking 08/03/2020 12:00:00 AM EDT Former Smoker completed Former Smoker eCW1 ([facility]) Smoking 08/03/2020 12:00:00 AM EDT Former Smoker completed Former Smoker eCW1 ([facility]) Smoking 08/03/2020 12:00:00 AM EDT Former Smoker completed Former Smoker eCW1 ([facility]) Smoking 08/03/2020 12:00:00 AM EDT Former Smoker completed Former Smoker eCW1 ([facility]) Smoking 04/06/2020 12:00:00 AM EST Former Smoker completed Former Smoker eCW1 ([facility]) Smoking 04/06/2020 12:00:00 AM EST Former Smoker completed Former Smoker eCW1 ([facility]) Smoking 04/06/2020 12:00:00 AM EST Former Smoker completed Former Smoker eCW1 ([facility]) Smoking 04/06/2020 12:00:00 AM EST Former Smoker completed Former Smoker eCW1 ([facility]) Smoking 04/06/2020 12:00:00 AM EST Former Smoker completed Former Smoker eCW1 ([facility]) Smoking 04/06/2020 12:00:00 AM EST Former Smoker completed Former Smoker eCW1 ([facility]) Smoking 04/06/2020 12:00:00 AM EST Former Smoker completed Former Smoker eCW1 ([facility]) Smoking 03/02/2020 12:00:00 AM EST Former Smoker completed Former Smoker eCW1 ([facility]) Smoking 12/16/2019 12:00:00 AM EDT Former Smoker completed Former Smoker eCW1 ([facility]) Smoking 12/16/2019 12:00:00 AM EDT Former Smoker completed Former Smoker eCW1 ([facility]) Smoking 12/16/2019 12:00:00 AM EDT Former Smoker completed Former Smoker eCW1 ([facility]) Smoking 12/16/2019 12:00:00 AM EDT Former Smoker completed Former Smoker eCW1 ([facility]) Smoking 12/16/2019 12:00:00 AM EDT Former Smoker completed Former Smoker eCW1 ([facility]) Smoking 12/01/2019 12:00:00 AM EDT Former Smoker completed Former Smoker eCW1 ([facility]) Vital Signs ID Date Data Source UNK Name Value Range Interpretation Code Description Data Source(s) Body weight 80.34 kg 80.34 kg eCW1 ([facility]) Body height 61 [in_i] 61 [in_i] eCW1 ([facility]) Body weight 177.12 [lb_av] 177.12 [lb_av] eCW1 ([facility]) Body mass index (BMI) [Ratio] 33.46 kg/m2 33.46 kg/m2 eCW1 ([facility]) Heart rate 80 /min 80 /min eCW1 ([facility]) Respiratory rate 18 /min 18 /min eCW1 ([facility]) Body temperature 98 [degF] 98 [degF] eCW1 ([facility]) Systolic blood pressure 130 mm[Hg] 130 mm[Hg] e CW1 ([facility]) Diastolic blood pressure 78 mm[Hg] 78 mm[Hg] eCW1 ([facility]) Body height 60 [in_i] 60 [in_i] MEDENT ([facility]) 5'0" Body weight 181.00 [lb_av] 181.00 [lb_av] MEDEN T ([facility]) Systolic blood pressure 137 mm[Hg] 137 mm[Hg] M EDENT ([facility]) Diastolic blood pressure 84 mm[Hg] 84 mm[Hg] MEDENT ([facility]) Heart rate 66 /min 66 /min MEDENT ([facility]) Body mass index (BMI) [Ratio] 35.3 kg/m2 35.3 k g/m2 MEDENT ([facility]) Body weight 82.102 kg 82.102 kg MEDENT ([facility]) Body temperature 97.4 [degF] 97.4 [degF] MEDENT ([facility]) Body temperature 96.6 [degF] 96.6 [degF] MEDENT ([facility]) Body height 60 [in_i] 60 [in_i] MEDENT ([facility]) 5'0" Body weight 176.00 [lb_av] 176.00 [lb_av] MEDEN T ([facility]) Body mass index (BMI) [Ratio] 34.4 kg/m2 34.4 k g/m2 MEDENT ([facility]) Body weight 182 [lb_av] 182 [lb_av] eCW1 ([facility]) Body height 61 [in_i] 61 [in_i] eCW1 ([facility]) Body mass index (BMI) [Ratio] 34.38 kg/m2 34.38 kg/m2 eCW1 ([facility]) Heart rate 78 /min 78 /min eCW1 ([facility]) Respiratory rate 20 /min 20 /min eCW1 ([facility]) Body temperature 97 [degF] 97 [degF] eCW1 ([facility]) Systolic blood pressure 140 mm[Hg] 140 mm[Hg] e CW1 ([facility]) Diastolic blood pressure 80 mm[Hg] 80 mm[Hg] eCW1 ([facility]) Body weight 179 [lb_av] 179 [lb_av] eCW1 ([facility]) Body height 61 [in_i] 61 [in_i] eCW1 ([facility]) Body mass index (BMI) [Ratio] 33.82 kg/m2 33.82 kg/m2 eCW1 ([facility]) Heart rate 82 /min 82 /min eCW1 ([facility]) Respiratory rate 20 /min 20 /min eCW1 ([facility]) Body temperature 97.3 [degF] 97.3 [degF] eCW1 ( [facility]) Systolic blood pressure 130 mm[Hg] 130 mm[Hg] e CW1 ([facility]) Diastolic blood pressure 80 mm[Hg] 80 mm[Hg] eCW1 ([facility]) Body weight 183 [lb_av] 183 [lb_av] eCW1 ([facility]) Body height 61 [in_i] 61 [in_i] eCW1 ([facility]) Body mass index (BMI) [Ratio] 34.57 kg/m2 34.57 kg/m2 eCW1 ([facility]) Heart rate 86 /min 86 /min eCW1 ([facility]) Respiratory rate 20 /min 20 /min eCW1 ([facility]) Body temperature 97.5 [degF] 97.5 [degF] eCW1 ( [facility]) Systolic blood pressure 124 mm[Hg] 124 mm[Hg] e CW1 ([facility]) Diastolic blood pressure 70 mm[Hg] 70 mm[Hg] eCW1 ([facility]) Body temperature 97.1 [degF] 97.1 [degF] MEDENT ([facility]) Body weight 180 [lb_av] 180 [lb_av] eCW1 ([facility]) Body height 61 [in_i] 61 [in_i] eCW1 ([facility]) Body mass index (BMI) [Ratio] 34.01 kg/m2 34.01 kg/m2 eCW1 ([facility]) Heart rate 89 /min 89 /min eCW1 ([facility]) Respiratory rate 18 /min 18 /min eCW1 ([facility]) Body temperature 96.9 [degF] 96.9 [degF] eCW1 ( [facility]) Systolic blood pressure 130 mm[Hg] 130 mm[Hg] e CW1 ([facility]) Diastolic blood pressure 70 mm[Hg] 70 mm[Hg] eCW1 ([facility]) Body weight 175 [lb_av] 175 [lb_av] eCW1 ([facility]) Body height 61 [in_i] 61 [in_i] eCW1 ([facility]) Body mass index (BMI) [Ratio] 33.06 kg/m2 33.06 kg/m2 eCW1 ([facility]) Heart rate 80 /min 80 /min eCW1 ([facility]) Respiratory rate 20 /min 20 /min eCW1 ([facility]) Body temperature 97.1 [degF] 97.1 [degF] eCW1 ( [facility]) Systolic blood pressure 120 mm[Hg] 120 mm[Hg] e CW1 ([facility]) Diastolic blood pressure 80 mm[Hg] 80 mm[Hg] eCW1 ([facility]) Patient Treatment Plan of Care Planned Activity Planned Date Details Description Data Source (s) Acetaminophen 325 MG / Hydrocodone Bitartrate 7.5 MG O ral Tablet 12/01/2020 12:00:00 AM EDT eCW1 ([facility]) Acetaminophen 325 MG / Hydrocodone Bitartrate 7.5 MG O ral Tablet 11/02/2020 12:00:00 AM EDT eCW1 ([facility]) Acetaminophen 325 MG / Hydrocodone Bitartrate 7.5 MG O ral Tablet 10/03/2020 12:00:00 AM EDT eCW1 ([facility]) Acetaminophen 325 MG / Hydrocodone Bitartrate 7.5 MG O ral Tablet 09/01/2020 12:00:00 AM EDT eCW1 ([facility]) Acetaminophen 325 MG / Hydrocodone Bitartrate 7.5 MG O ral Tablet 09/01/2020 12:00:00 AM EDT eCW1 ([facility]) Levothyroxine Sodium 0.088 MG Oral Tablet [Synthroid] 08/03/2020 12:00:00 AM EDT eCW1 ([facility]) Levothyroxine Sodium 0.088 MG Oral Tablet [Synthroid] 08/03/2020 12:00:00 AM EDT eCW1 ([facility]) Levothyroxine Sodium 0.088 MG Oral Tablet [Synthroid] 08/03/2020 12:00:00 AM EDT eCW1 ([facility]) Levothyroxine Sodium 0.075 MG Oral Tablet [Synthroid] 08/03/2020 12:00:00 AM EDT eCW1 ([facility]) Levothyroxine Sodium 0.075 MG Oral Tablet [Synthroid] 08/03/2020 12:00:00 AM EDT eCW1 ([facility]) Levothyroxine Sodium 0.075 MG Oral Tablet [Synthroid] 08/03/2020 12:00:00 AM EDT eCW1 ([facility]) Levothyroxine Sodium 0.075 MG Oral Tablet [Synthroid] 08/03/2020 12:00:00 AM EDT eCW1 ([facility]) Levothyroxine Sodium 0.075 MG Oral Tablet [Synthroid] 08/03/2020 12:00:00 AM EDT eCW1 ([facility]) Levothyroxine Sodium 0.075 MG Oral Tablet [Synthroid] 08/03/2020 12:00:00 AM EDT eCW1 ([facility]) Acetaminophen 325 MG / Hydrocodone Bitartrate 7.5 MG O ral Tablet 07/06/2020 12:00:00 AM EDT eCW1 ([facility]) Acetaminophen 325 MG / Hydrocodone Bitartrate 7.5 MG O ral Tablet 07/06/2020 12:00:00 AM EDT eCW1 ([facility]) Acetaminophen 325 MG / Hydrocodone Bitartrate 7.5 MG O ral Tablet 07/06/2020 12:00:00 AM EDT eCW1 ([facility]) Acetaminophen 325 MG / Hydrocodone Bitartrate 7.5 MG O ral Tablet 06/02/2020 12:00:00 AM EDT eCW1 ([facility]) Levothyroxine Sodium 0.088 MG Oral Tablet [Synthroid] 05/25/2020 12:00:00 AM EDT eCW1 ([facility]) Levothyroxine Sodium 0.088 MG Oral Tablet [Synthroid] 05/25/2020 12:00:00 AM EDT eCW1 ([facility]) Levothyroxine Sodium 0.088 MG Oral Tablet [Synthroid] 05/25/2020 12:00:00 AM EDT eCW1 ([facility]) Acetaminophen 325 MG / Hydrocodone Bitartrate 7.5 MG O ral Tablet 05/04/2020 12:00:00 AM EDT eCW1 ([facility]) Acetaminophen 325 MG / Hydrocodone Bitartrate 7.5 MG O ral Tablet 05/04/2020 12:00:00 AM EDT eCW1 ([facility]) Acetaminophen 325 MG / Hydrocodone Bitartrate 7.5 MG O ral Tablet 05/04/2020 12:00:00 AM EDT eCW1 ([facility]) Metformin hydrochloride 500 MG Oral Tablet 04/06/2020 12:00:[address] eCW1 ([facility]) Metformin hydrochloride 500 MG Oral Tablet 04/06/2020 12:00:[address] eCW1 ([facility]) Metformin hydrochloride 500 MG Oral Tablet 04/06/2020 12:00:[address] eCW1 ([facility]) Metformin hydrochloride 500 MG Oral Tablet 04/06/2020 12:00:[address] eCW1 ([facility]) Metformin hydrochloride 500 MG Oral Tablet 04/06/2020 12:00:[address] eCW1 ([facility]) Metformin hydrochloride 500 MG Oral Tablet 04/06/2020 12:00:[address] eCW1 ([facility]) Metformin hydrochloride 500 MG Oral Tablet 04/06/2020 12:00:[address] eCW1 ([facility]) Metformin hydrochloride 500 MG Oral Tablet 04/06/2020 12:00:[address] eCW1 ([facility]) Metformin hydrochloride 500 MG Oral Tablet 04/06/2020 12:00:[address] eCW1 ([facility]) Metformin hydrochloride 500 MG Oral Tablet 04/06/2020 12:00:[address] eCW1 ([facility]) Metformin hydrochloride 500 MG Oral Tablet 04/06/2020 12:00:[address] eCW1 ([facility]) Metformin hydrochloride 500 MG Oral Tablet 04/06/2020 12:00:[address] eCW1 ([facility]) Metformin hydrochloride 500 MG Oral Tablet 04/06/2020 12:00:[address] eCW1 ([facility]) Triamcinolone Acetonide 0.005 MG/MG Topical Ointment 12:00:00 AM EST eCW1 ([facility]) Acetaminophen 325 MG / Hydrocodone Bitartrate 7.5 MG O ral Tablet 03/02/2020 12:00:00 AM EST eCW1 ([facility]) Acetaminophen 325 MG / Hydrocodone Bitartrate 7.5 MG O ral Tablet 02/01/2020 12:00:00 AM EST eCW1 ([facility]) Acetaminophen 325 MG / Hydrocodone Bitartrate 7.5 MG O ral Tablet 01/06/2020 12:00:00 AM EST eCW1 ([facility]) Acetaminophen 325 MG / Hydrocodone Bitartrate 7.5 MG O ral Tablet 01/06/2020 12:00:00 AM EST eCW1 ([facility]) Camphor 5 MG/ML / Menthol 5 MG/ML Topical Lotion [Sarn a] 12/01/2019 12:00:00 AM EDT eCW1 ([facility]) cetirizine hydrochloride 10 MG Oral Tablet 12/01/2019 12:00:00 AM E DT eCW1 ([facility]) Levothyroxine Sodium 0.1 MG Oral Tablet [Synthroid] 12/01/19 12:00:00 AM EDT eCW1 ([facility]) Camphor 5 MG/ML / Menthol 5 MG/ML Topical Lotion [Sarn a] 12/01/2019 12:00:00 AM EDT eCW1 ([facility]) Levothyroxine Sodium 0.1 MG Oral Tablet [Synthroid] 12/01/19 12:00:00 AM EDT eCW1 ([facility]) cetirizine hydrochloride 10 MG Oral Tablet 12/01/2019 12:00:00 AM E DT eCW1 ([facility]) Levothyroxine Sodium 0.1 MG Oral Tablet [Synthroid] 12/01/19 12:00:00 AM EDT eCW1 ([facility]) cetirizine hydrochloride 10 MG Oral Tablet 12/01/2019 12:00:00 AM E DT eCW1 ([facility]) Levothyroxine Sodium 0.1 MG Oral Tablet [Synthroid] 12/01/19 12:00:00 AM EDT eCW1 ([facility]) cetirizine hydrochloride 10 MG Oral Tablet 12/01/2019 12:00:00 AM E DT eCW1 ([facility]) Levothyroxine Sodium 0.1 MG Oral Tablet [Synthroid] 12/01/19 12:00:00 AM EDT eCW1 ([facility]) cetirizine hydrochloride 10 MG Oral Tablet 12/01/2019 12:00:00 AM E DT eCW1 ([facility]) Triamcinolone Acetonide 5 MG/ML Topical Cream 12/01/2019 12:00:00 A M EDT eCW1 ([facility]) Camphor 5 MG/ML / Menthol 5 MG/ML Topical Lotion [Sarn a] 12/01/2019 12:00:00 AM EDT eCW1 ([facility]) Levothyroxine Sodium 0.1 MG Oral Tablet [Synthroid] 12/01/19 12:00:00 AM EDT eCW1 ([facility]) cetirizine hydrochloride 10 MG Oral Tablet 12/01/2019 12:00:00 AM E DT eCW1 ([facility]) Acetaminophen 325 MG / Hydrocodone Bitartrate 7.5 MG O ral Tablet 11/29/2019 12:00:00 AM EDT eCW1 ([facility]) Acetaminophen 325 MG / Hydrocodone Bitartrate 7.5 MG O ral Tablet 11/29/2019 12:00:00 AM EDT eCW1 ([facility]) Acetaminophen 325 MG / Hydrocodone Bitartrate 7.5 MG O ral Tablet 11/29/2019 12:00:00 AM EDT eCW1 ([facility])
--- OUTSIDE RECORDS SUMMARY | 2020-12-20 12:26 | CCD | Continuity of Care Document ---
Author Alina Petersen M.D Organization Unknown Address [address] [place] [address] Phone [phone] Care Team Providers Care Research Instructor Name Role Phone Jenny Lee NP AUTM [phone] Problems Active Problems Provider Date Screening for malignant neoplasm of colon Kenyatta Rice Onset: 03/31/2012 Gastroesophageal reflux disease Santi Sanchez M.D. Ons et: 07/31/2017 Social History Type Date Description Comments Sex Unknown ETOH Use Denies alcohol use Tobacco Use Start: Unknown End: Unknown Patient is a former smoker Allergies and adverse reactions Description No Known Drug Allergies Medications Active Medications SIG Qnty Indications Ordering Provide r Date Sutab [id number] Tablets as directed 1box Santi Sanchez M.D. 10/31/2020 Simvastatin 40mg Tablets Unknown Hydrocodone-Acetaminophen 7.5-325mg Tablets Roopa Gore FNP 00 Metformin HCL 500mg Tablets Roopa Gore FNP Trazodone HCL 100mg Tablets Take 1 Tablet By Mouth AT Bedtime Roopa Murray NP Synthroid 75mcg Tablets Take 1 Tablet By Mouth Once Daily In The Morning On An Empty Stomach Roopa Murray NP Fluticasone Propionate 50mcg/Act Suspension Use 1 Line [place](S) In Each Nostril Once Daily Roopa Murray NP Triamcinolone Acetonide 0.5% Ointm ent Apply Ointment Topically Twice Daily For 2 Weeks Then Twice Weekly as Needed Roopa Murray NP Cetirizine HCL 10mg Chewtabs Unknown Vital AF 1.2 Trent Liquid Unknown Cymbalta 60mg Caps DR Part Unknown Immunizations Description No Information Available Vital Signs Date Vital Result Comment 10/31/2020 2:57pm Height 60 inches 5'0" Weight 181.00 lb BP Systolic 137 mmHg BP Diastolic 84 mmHg Heart Rate 66 /min BMI (Body Mass Index) 35.3 kg/m2 Weight 82.102 kg Body Temperature 97.4 F 07/31/2017 9:33am Height 60 inches 5'0" Weight 182.00 lb BP Systolic 158 mmHg BP Diastolic 102 mmHg Heart Rate 57 /min BMI (Body Mass Index) 35.5 kg/m2 Weight 82.555 kg Results Description No Information Available Procedures Date Code Description Status 10/31/2020 31193 Office/Outpatient New Low MDM 30 -44 Minutes Completed Medical Devices Description No Information Available Encounters Type Date Location Provider Dx Diagnosis Office Visit 10/31/2020 2:15p Main Office Santi Sanchez M.D. Z 86.010 Personal history of colonic polyps Assessments Date Code Description Provider 10/31/2020 Z86.010 Personal history of colonic poly ps Santi Sanchez M.D. Plan of Treatment Future Appointment(s):* 12/20/2020 12:15 pm - Santi Sanchez M.D. at Main Office 10/31/2020 - Santi Sanchez M.D.* Z86.010 Personal history of colonic polyps* Comments:* 65 wf who presents for a colonoscopy due to a h/o colonic polyps. Last scope was in 2018. No c/o abdominal pain, weight loss, change in bowel habits, or rectal bleeding. No family h/o colon cancer. No h/o chest pain, or sob. Plan:1.Schedule patient for Colonoscopy. 2. Informed consent given.3. Advised to stop asa, plavix,and anticoagulation 3 to 7 days prior to the procedures. Functional Status Description No Information Available Mental Status Description No Information Available Referrals Description No Information Available
--- OUTSIDE RECORDS SUMMARY | 2020-12-20 12:26 | CCD ---
Author Author [facility] Organization [facility] Address Unknown Phone Unavailable Care Team Providers Care Pain Management Nurse Practitioner Name Role Phone Roopa Murray Unavailable PROBLEMS Type Condition ICD9-CM Code [id number] Code Onset Dates Condition S tatus W/U Status Risk SNOMED Code Notes Problem Hyperlipidemia, unspecified E78.5 Active confirmed 96893350 Problem Gastro-esophageal reflux disease without esophagitis K21.9 Active confirmed 088786972 Problem Vitamin D deficiency, unspecified E55.9 Active con firmed 31343236 Problem Graves disease E05.00 Active confirmed 31711 5004 Problem Depression with anxiety F41.8 Active confirmed 351304820 Problem Obesity (BMI 30-39.9) E66.9 Active confirmed 410664146 Problem Unilateral primary osteoarthritis, right hip M16.1 1 Active confirmed [id number] Problem Other insomnia G47.09 Active confirmed 46294 2001 Problem Aortic valve sclerosis I35.8 Active confirmed 85686428 Problem Other chronic pain G89.29 Active confirmed 8 7583729 Problem Type 2 diabetes mellitus wit hout complication, without long-term current use of insulin E11.9 Active confirmed 072448442 Problem Postprocedural hypothyroidism E89.0 Active confirm ed 87020612 Problem Lung nodule R91.1 Active confirmed 06821020 2 Problem Ureteral stone with hydronephrosis N13.2 Activ e confirmed 100234246 ALLERGIES Allergen (clinical drug ingredient) Drug/Non Drug Allergy do cumented on EMR Reaction Allergy Type Onset Date Status morphine Morphine Sulfate([facility] Code:[address]-58) intense headaches Drug Allergy Active ENCOUNTERS from 1955 to 2020-11-02 Encounter Location Date Provider Diagnosis [facility] Walter [address] [facility] [phone] [place] [address] Oct, Roopa Murray Other chronic pain G89.29 IMMUNIZATIONS Vaccine Route [...] Notes Total Score: 0 Interpretation: Alcohol Education Confucianism: Question Answer Notes Confucianism 33 None Sexual Hx: Question Answer Notes [...] Once a day for 30 day(s) Active Triamcinolone Acetonide 0.5 % 1 application Externally Twice a day x 2 weeks, then twice weekly as needed for 30 Days Active Tums 500 MG 1 tablet Orally Once a day a s needed for breakthrough symptoms for 30 day(s) stopping zantac Dec, Not-Taking Blood Glucose Meter - as directed test daily DC: E11.9 [facility] Jul, Active Blood Glucose Test Strip - as directed In Vitro test d aily. DX: E11.9 for 30 day(s) Jul, Active Ibuprofen 800 MG 1 tablet Orally Three times a day as needed, always take with some food for 30 days Mar, Active Omeprazole 40 MG 1 capsule Orally Once a day for 90 Active HYDROcodone-Acetaminophen 7.5-325 MG 1 tablet as neede d Orally every 4-6 hrs MDD #6 for 30 days Oct, Active traZODone HCl 100 MG 1 tablet at bedtime Orally Once a day for 30 day s Active Flonase Allergy Relief 50 MCG/ACT 1 spray in each nost ril Nasally Once a day for 90 days Active Medical Compression Stockings - as directed _ Daily (R60.0) for 30 day(s) Aug, Not-Taking Vitamin D-3 25 MCG (1000 UT) TAKE 2 CAPSULES BY MOUTH ONCE DAILY WITH A MEAL orally Daily for 90 days Active Cymbalta 60 MG 1 capsule Orally Once a day for 30 days Active Lancets - as directed test daily DX: E11.9 for 30 day(s) Jul, Active Simvastatin 40 MG 1 tablet in the evening Orally Once a day Active metFORMIN HCl 500 MG 1 tablet with breakfast, 2 t abs with dinner meal Orally twice daily for 30 Days Mar, Active PROCEDURES No Information RESULTS No Results REASON FOR VISIT Script MEDICAL (GENERAL) HISTORY Type Description Date Medical [...] History right hip 1999 Surgical History Colonoscopy- [facility]- 1 ad enomatous polyp and 3 hyperplastic polyps. repeat 2-3 years 11/18 Surgical History Femur carter removed - ortho 07/2019 Surgical History Right total hip arthroplasty at [facility] by Martha Dent 12/27/2019; Hospitalization History No Hospitalization history informati on Goals Section No Information Health Concerns No Information MEDICAL EQUIPMENT No Information MENTAL STATUS No Information FUNCTIONAL STATUS No Information ASSESSMENTS Encounter Date Diagnosis Assessment Notes Treatment Notes Treatm ent Clinical Notes Oct, Other chronic pain (ICD-10 - G89.29) PLAN OF TREATMENT Medication Medication Name Sig Start Date Stop Date Simvastatin 40 MG 1 tablet in the evening Orally Once a day Flonase Allergy Relief 50 MCG/ACT 1 spray in each nost ril Nasally Once a day for 90 days traZODone HCl 100 MG 1 tablet at bedtime Orally Once a day for 3 0 days Triamcinolone Acetonide 0.5 % 1 application Externally Twice a day x 2 weeks, then twice weekly as needed for 30 Days Cymbalta 60 MG 1 capsule Orally Once a day for 30 days HYDROcodone-Acetaminophen 7.5-325 MG 1 tablet as neede d Orally every 4-6 hrs MDD #6 for 30 days Oct, Synthroid 75 MCG 1 tablet in the morning on a n empty stomach Orally Once a day "MARQUISE" for 30 day(s) Jul, metFORMIN HCl 500 MG 1 tablet with breakfast, 2 t abs with dinner meal Orally twice daily for 30 Days Mar, Next Appt Details Provider Name:Sara Blanco, 2020-02 03:30:00 PM, [address] [facility], , [place], [address], Insurance Providers Payer Name Payer Address Payer Phone Insured Name Patient Relati onship to Insured Coverage Start Date Coverage End Date MEDICAID Inside Social [address] [facility] [id number] [place] [employer] MEDICARE Part A and B [address] [facility] [address] [phone] [employer]
[2020-12-20] MEDS ORDERED: LIDOCAINE 2% 100MG/5ML SDV (FOR ANES.) As Ordered ONE (13:10)
[2020-12-20] MEDS ORDERED: propofoL 200 MG/20 ML VIAL As Ordered ONE ×2 (13:53→13:57)
--- NOTE | 2020-12-20 14:12 | ROOR ---
Patient Name: Alina Siddiqi Procedure Date: 12/20/2020 1:42 PM Date of : 1955 Age: 65 Room: [facility] Gender: Female Note Status: Finalized Procedure: Total Colonoscopy to Cecum + Cold Snare Polypectomy + Hemoclips Indications: High risk colon cancer surveillance: Personal history of colonic polyps, Last colonoscopy: 2017 Providers: Santi Sanchez MD Referring MD: [facility] LUZ Norris [facility] Jose Elias Requesting Provider: Medicines: Monitored Anesthesia Care Complications: No immediate complications. Procedure: Pre-Anesthesia Assessment: - The heart rate, respiratory rate, oxygen saturations, blood pressure, adequacy of pulmonary ventilation, and response to care were monitored throughout the procedure. The Colonoscope was introduced through the anus and advanced to the cecum, identified by appendiceal orifice and ileocecal valve. The colonoscopy was performed without difficulty. The patient tolerated the procedure well. The quality of the bowel preparation was excellent. Findings: The perianal and digital rectal examinations were normal. Non-bleeding internal hemorrhoids were found during retroflexion. The hemorrhoids were small and Grade I (internal hemorrhoids that do not prolapse). A large polyp was found at 60 cm proximal to the anus. The polyp was carpet-like. The polyp was removed with a cold snare. Resection and retrieval were complete. To prevent bleeding after the polypectomy, three hemostatic clips were successfully placed. There was no bleeding at the end of the procedure. A small polyp was found at 25 cm proximal to the anus. The polyp was sessile. The polyp was removed with a cold snare. Resection and retrieval were complete. Two sessile polyps were found in the rectum. The polyps were small in size. These polyps were removed with a cold snare. Resection and retrieval were complete. The exam was otherwise without abnormality on direct and retroflexion views. Impression: - Non-bleeding internal hemorrhoids. - One large polyp at 60 cm proximal to the anus, removed with a cold snare. Resected and retrieved. Clips were placed. - One small polyp at 25 cm proximal to the anus, removed with a cold snare. Resected and retrieved. - Two small polyps in the rectum, removed with a cold snare. Resected and retrieved. - The examination was otherwise normal on direct and retroflexion views. - The exam was otherwise normal to the cecum. Recommendation: - Patient has a contact number available for emergencies. The signs and symptoms of potential delayed complications were discussed with the patient. Return to normal activities tomorrow. Written discharge instructions were provided to the patient. - High fiber diet. - Discharge patient to home. - Continue present medications. - Await pathology results. - Telephone GI clinic for pathology results in 1 week. - Repeat colonoscopy in 5 years for surveillance based on pathology results. - Return to referring physician. - The findings and recommendations were discussed with the patient. Procedure Code(s): --- Professional --- 16128, Colonoscopy, flexible; with removal of tumor(s), polyp(s), or other lesion(s) by snare technique Diagnosis Code(s): --- Professional --- Z86.010, Personal history of colonic polyps K64.0, First degree hemorrhoids K63.5, Polyp of colon K62.1, Rectal polyp CPT copyright 2019 [employer]. All rights reserved. The codes documented in this report are preliminary and upon dry plasterer review may be revised to meet current compliance requirements. Santi Sanchez MD Santi Sanchez MD 12/20/2020 2:12:19 PM Electronically signed by Santi Sanchez MD Number of Addenda: 0 Note Initiated On: 12/20/2020 1:42 PM Estimated Blood Loss: Estimated blood loss: none.
[2020-12-20 14:30] VITALS: BP 171/78
== END 2020-12-20 15:16 | disposition home or self-care (01) ==
LOC: M OPP 12:20
PROVIDERS: ATTEND Internal Medicine Gastroenterology
DX: Z12.11 Encounter for screening for malignant neoplasm of colon (principal); Z86.010 Personal history of colon polyps; K63.5 Polyp of colon; K62.1 Rectal polyp; K64.0 First degree hemorrhoids; Z79.84 Long term (current) use of oral hypoglycemic drugs; Z79.891 Long term (current) use of opiate analgesic; Z79.899 Other long term (current) drug therapy; Z88.8 Allergy status to other drugs, medicaments and biological substances; Z88.5 Allergy status to narcotic agent; Z92.3 Personal history of irradiation

== ENCOUNTER → 2020-12-25 | Outpatient (CLI) | payer MEDICARE, MEDICAID ==
[~2020-12-25] MED LIST changes: -NS 1,000 ML IV ONE
[2020-12-25 13:09] LABS: ALBUMIN 3.8 GM/DL (3.2-5.2); BLOOD UREA NITROGEN 10 MG/DL (7-18); CALCIUM LEVEL 8.9 MG/DL (8.8-10.2); CARBON DIOXIDE LEVEL 28 MEQ/L (21-32); CHLORIDE LEVEL 104 MEQ/L (98-107); CREATININE FOR GFR 0.78 MG/DL (0.55-1.30); FREE T4 1.01 NG/DL (0.76-1.46); GLOMERULAR FILTRATION RATE > 60.0 (>45); GLUCOSE, FASTING 111 MG/DL (70-100); MAGNESIUM LEVEL 2.1 MG/DL (1.8-2.4); NT-PRO BNP 20 PG/ML (<125); PHOSPHORUS LEVEL 2.9 MG/DL (2.5-4.9); POTASSIUM SERUM 4.2 MEQ/L (3.5-5.1); SODIUM LEVEL 138 MEQ/L (136-145)
== END ==
LOC: M WUC 10:09
PROVIDERS: ATTEND Nurse Practitioner Family
DX: E89.0 Postprocedural hypothyroidism (principal); I10 Essential (primary) hypertension

== ENCOUNTER → 2021-04-16 | Outpatient (CLI) | payer MEDICARE, MEDICAID ==
[2021-04-16 14:27] LABS: ALBUMIN 3.9 GM/DL (3.2-5.2); ALT/SGPT 40 U/L (12-78); BILIRUBIN,TOTAL 0.3 MG/DL (0.2-1.0); BLOOD UREA NITROGEN 15 MG/DL (7-18); CALCIUM LEVEL 8.8 MG/DL (8.8-10.2); CARBON DIOXIDE LEVEL 30 MEQ/L (21-32); CHLORIDE LEVEL 103 MEQ/L (98-107); CHOLESTEROL LEVEL 176 MG/DL (<200); CHOLESTEROL RISK RATIO 2.983 (<5); CREATININE FOR GFR 0.88 MG/DL (0.55-1.30); FREE T4 0.98 NG/DL (0.76-1.46); GLOMERULAR FILTRATION RATE > 60.0 (>45); GLUCOSE, FASTING 160 MG/DL (70-100); HDL CHOLESTEROL 59 MG/DL (>40); LDL CHOLESTEROL 86 MG/DL (<100); NON-HDL-C 117 MG/DL; PHOSPHORUS LEVEL 3.7 MG/DL (2.5-4.9); SODIUM LEVEL 140 MEQ/L (136-145); TOTAL 25(OH) VITAMIN D 33.8 NG/ML (30.0-100.0); TOTAL PROTEIN 6.9 GM/DL (6.4-8.2); TRIGLYCERIDES LEVEL 153 MG/DL (<150)
[2021-04-16 17:38] LABS: HEMOGLOBIN A1c 7.7 %
[2021-04-17 02:53] LABS: MALB URINE SIEMENS 78.9 MG/L; MAU/CREAT RATIO 19.2 MCG/MG (0.0-30.0)
== END ==
LOC: M WUC 08:57
PROVIDERS: ATTEND Nurse Practitioner Family
DX: E89.0 Postprocedural hypothyroidism (principal); E11.9 Type 2 diabetes mellitus without complications; E78.5 Hyperlipidemia, unspecified; E55.9 Vitamin D deficiency, unspecified; I10 Essential (primary) hypertension

== ENCOUNTER → 2021-09-17 | Outpatient (CLI) | payer MEDICARE, MEDICAID ==
[2021-09-17 14:02] LABS: BASO # 0.1 10^3/uL (0.0-0.2); BASO % 0.8 % (0.0-1.0); EOS # 0.2 10^3/uL (0.0-0.5); EOS % 2.9 % (0.0-3.0); HEMATOCRIT 39.6 % (36.0-47.0); HEMOGLOBIN 12.4 g/dl (12.0-15.5); LYMPH # 1.7 10^3/uL (1.5-5.0); LYMPH % 28.2 % (24.0-44.0); MEAN CORPUSCULAR HEMOGLOBIN 29.5 pg (27.0-33.0); MEAN CORPUSCULAR HGB CONC 31.3 g/dl (32.0-36.5); MEAN CORPUSCULAR VOLUME 94.3 fl (80.0-96.0); MONO # 0.5 10^3/uL (0.0-0.8); MONO % 8.4 % (2.0-8.0); NEUTROPHILS # 3.5 10^3/uL (1.5-8.5); NEUTROPHILS % 59.2 % (36.0-66.0); PLATELET COUNT, AUTOMATED 191 10^3/uL (150-450)
[2021-09-17 14:31] LABS: HEMOGLOBIN A1c 8.2 %
[2021-09-17 14:32] LABS: ALBUMIN 3.9 GM/DL (3.2-5.2); ALT/SGPT 59 U/L (12-78); BILIRUBIN,TOTAL 0.3 MG/DL (0.2-1.0); BLOOD UREA NITROGEN 14 MG/DL (7-18); CALCIUM LEVEL 9.4 MG/DL (8.8-10.2); CARBON DIOXIDE LEVEL 30 MEQ/L (21-32); CHLORIDE LEVEL 105 MEQ/L (98-107); CHOLESTEROL LEVEL 196 MG/DL (<200); CREATININE FOR GFR 0.85 MG/DL (0.55-1.30); FREE T4 0.98 NG/DL (0.76-1.46); GLOMERULAR FILTRATION RATE > 60.0 (>45); GLUCOSE, FASTING 184 MG/DL (70-100); HDL CHOLESTEROL 56 MG/DL (>40); LDL CHOLESTEROL 87 MG/DL (<100); NON-HDL-C 140 MG/DL; POTASSIUM SERUM 5.2 MEQ/L (3.5-5.1); SODIUM LEVEL 139 MEQ/L (136-145); TOTAL PROTEIN 6.9 GM/DL (6.4-8.2); TRIGLYCERIDES LEVEL 266 MG/DL (<150)
[2021-09-17 14:46] LABS: MALB URINE SIEMENS 26.6 MG/L; MAU/CREAT RATIO 10.7 MCG/MG (0.0-30.0)
[2021-09-17 15:26] LABS: TOTAL 25(OH) VITAMIN D 29.4 NG/ML (30.0-100.0)
[2021-09-21 11:08] LABS: CODEINE, URINE Negative (Cutoff=100); CREATININE, URINE 253.9 mg/dL (20.0-300.0); HYDROCODONE CONFIRM, URINE 4833 ng/mL (Cutoff=100); HYDROCODONE, URINE Positive (.); HYDROMORPHONE CONFIRM, URINE 497 ng/mL (Cutoff=100); HYDROMORPHONE, URINE Positive (.); MORPHINE, URINE Negative (Cutoff=100); OPIATES, URINE Positive ng/mL (Cutoff=300)
== END ==
LOC: M PLALAB 11:29
PROVIDERS: ATTEND Nurse Practitioner Family
DX: E89.0 Postprocedural hypothyroidism (principal); I10 Essential (primary) hypertension; E11.9 Type 2 diabetes mellitus without complications; E78.5 Hyperlipidemia, unspecified; E55.9 Vitamin D deficiency, unspecified; Z79.899 Other long term (current) drug therapy

== ENCOUNTER → 2021-10-15 | Outpatient (CLI) | payer MEDICARE, MEDICAID | LOC: M WHC 08:52 | PROVIDERS: ATTEND Nurse Practitioner Family | DX: Z13.820 Encounter for screening for osteoporosis (principal); Z12.31 Encounter for screening mammogram for malignant neoplasm of breast; M85.852 Other specified disorders of bone density and structure, left thigh ==

== ENCOUNTER → 2022-02-04 | Outpatient (CLI) | payer MEDICARE, MEDICAID ==
[2022-02-04 13:47] LABS: BASO # 0.1 10^3/uL (0.0-0.2); BASO % 0.9 % (0.0-1.0); EOS # 0.1 10^3/uL (0.0-0.5); EOS % 1.7 % (0.0-3.0); HEMATOCRIT 42.8 % (36.0-47.0); HEMOGLOBIN 13.7 g/dl (12.0-15.5); LYMPH # 1.8 10^3/uL (1.5-5.0); LYMPH % 22.8 % (24.0-44.0); MEAN CORPUSCULAR HEMOGLOBIN 29.8 pg (27.0-33.0); MONO # 0.5 10^3/uL (0.0-0.8); MONO % 6.8 % (2.0-8.0); NEUTROPHILS # 5.3 10^3/uL (1.5-8.5); PLATELET COUNT, AUTOMATED 214 10^3/uL (150-450); WHITE BLOOD COUNT 7.8 10^3/uL (4.0-10.0)
[2022-02-04 14:06] LABS: HEMOGLOBIN A1c 8.6 % (4.0-6.0)
[2022-02-04 14:09] LABS: CREATININE, URINE 102.2 MG/DL; MAU/CREAT RATIO 7.8 MCG/MG (0.0-30.0)
[2022-02-04 14:12] LABS: ALBUMIN 4.2 G/DL (3.2-5.2); ALKALINE PHOSPHATASE 52 U/L (46-116); ALT/SGPT 28 U/L (7.0-40); AST/SGOT 25 U/L (<34); BILIRUBIN,TOTAL 0.3 MG/DL (0.3-1.2); BLOOD UREA NITROGEN 19 MG/DL (9-23); CALCIUM LEVEL 9.6 MG/DL (8.3-10.6); CARBON DIOXIDE LEVEL 29 MMOL/L (20-31); CHLORIDE LEVEL 99 MMOL/L (98-107); CHOLESTEROL LEVEL 206 MG/DL (<200); CHOLESTEROL RISK RATIO 3.66 (<5); CREATININE FOR GFR 0.81 MG/DL (0.55-1.30); GLOMERULAR FILTRATION RATE > 60.0 (>45); GLUCOSE, FASTING 161 MG/DL (74-106); HDL CHOLESTEROL 56.2 MG/DL (>40); LDL CHOLESTEROL 95.2 MG/DL (<100); NON-HDL-C 150 MG/DL; POTASSIUM SERUM 4.4 MMOL/L (3.5-5.1); SODIUM LEVEL 136 MMOL/L (136-145); THYROID STIMULATING HORMONE 2.699 uIU/ML (0.55-4.78); TOTAL PROTEIN 7.3 G/DL (5.7-8.2); TRIGLYCERIDES LEVEL 273 MG/DL (<150)
[2022-02-04 14:13] LABS: FREE T4 1.26 NG/DL (0.89-1.76); TOTAL 25(OH) VITAMIN D 30.5 NG/ML (20.0-100.0)
== END ==
LOC: M WUC 10:25
PROVIDERS: ATTEND Nurse Practitioner Family
DX: E78.5 Hyperlipidemia, unspecified (principal); E55.9 Vitamin D deficiency, unspecified; E11.9 Type 2 diabetes mellitus without complications; E89.0 Postprocedural hypothyroidism; Z79.899 Other long term (current) drug therapy

== ENCOUNTER → 2022-08-08 | Outpatient (CLI) | payer MEDICARE, MEDICAID | LOC: M RAD 09:32 | PROVIDERS: ATTEND Nurse Practitioner Family | DX: Z87.891 Personal history of nicotine dependence (principal) ==

== ENCOUNTER → 2022-08-19 | Outpatient (CLI) | payer MEDICARE, MEDICAID ==
[2022-08-19 09:41] LABS: BASO % 0.6 % (0.0-1.0); EOS # 0.3 10^3/uL (0.0-0.5); EOS % 4.7 % (0.0-3.0); HEMATOCRIT 37.6 % (36.0-47.0); HEMOGLOBIN 12.4 g/dl (12.0-15.5); LYMPH # 1.5 10^3/uL (1.5-5.0); LYMPH % 23.4 % (24.0-44.0); MEAN CORPUSCULAR HEMOGLOBIN 31.6 pg (27.0-33.0); MEAN CORPUSCULAR VOLUME 95.7 fl (80.0-96.0); MONO # 0.5 10^3/uL (0.0-0.8); MONO % 8.2 % (2.0-8.0); NEUTROPHILS # 4.1 10^3/uL (1.5-8.5); NEUTROPHILS % 62.5 % (36.0-66.0); PLATELET COUNT, AUTOMATED 194 10^3/uL (150-450); RED BLOOD COUNT 3.93 10^6/uL (4.00-5.40); WHITE BLOOD COUNT 6.6 10^3/uL (4.0-10.0)
[2022-08-19 10:05] LABS: CREATININE, URINE 159.6 MG/DL
[2022-08-19 10:08] LABS: ALBUMIN 3.7 G/DL (3.2-5.2); ALKALINE PHOSPHATASE 37 U/L (46-116); ALT/SGPT 34 U/L (7.0-40); AST/SGOT 21 U/L (<34); BILIRUBIN,TOTAL 0.4 MG/DL (0.3-1.2); BLOOD UREA NITROGEN 14 MG/DL (9-23); CALCIUM LEVEL 8.5 MG/DL (8.3-10.6); CARBON DIOXIDE LEVEL 27 MMOL/L (20-31); CHLORIDE LEVEL 108 MMOL/L (98-107); CHOLESTEROL LEVEL 144 MG/DL (<200); CHOLESTEROL RISK RATIO 2.59 (<5); CREATININE FOR GFR 0.68 MG/DL (0.55-1.30); GLOMERULAR FILTRATION RATE > 60.0 (>45); GLUCOSE, FASTING 130 MG/DL (74-106); HDL CHOLESTEROL 55.4 MG/DL (>40); NON-HDL-C 88.6 MG/DL; POTASSIUM SERUM 4.4 MMOL/L (3.5-5.1); SODIUM LEVEL 142 MMOL/L (136-145); TOTAL PROTEIN 6.1 G/DL (5.7-8.2); TRIGLYCERIDES LEVEL 123 MG/DL (<150)
[2022-08-19 10:09] LABS: FREE T4 0.95 NG/DL (0.89-1.76); THYROID STIMULATING HORMONE 4.088 uIU/ML (0.55-4.78)
[2022-08-19 10:10] LABS: TOTAL 25(OH) VITAMIN D 35.2 NG/ML (20.0-100.0)
[2022-08-19 10:42] LABS: HEMOGLOBIN A1c 6.8 % (4.0-6.0)
== END ==
LOC: M LAB 08:45
PROVIDERS: ATTEND Nurse Practitioner Family
DX: I10 Essential (primary) hypertension (principal); E11.9 Type 2 diabetes mellitus without complications; E78.5 Hyperlipidemia, unspecified; E55.9 Vitamin D deficiency, unspecified; E89.0 Postprocedural hypothyroidism; Z79.899 Other long term (current) drug therapy

== ENCOUNTER → 2022-10-28 | Outpatient (CLI) | payer MEDICARE, MEDICAID | LOC: M WHC 13:54 | PROVIDERS: ATTEND Nurse Practitioner Family | DX: Z12.31 Encounter for screening mammogram for malignant neoplasm of breast (principal) ==

== ENCOUNTER → 2022-12-16 | Outpatient (CLI) | payer MEDICARE, MEDICAID ==
[2022-12-16 08:59] LABS: HEMOGLOBIN A1c 6.5 % (4.0-6.0)
[2022-12-16 09:17] LABS: ALBUMIN 3.7 G/DL (3.2-5.2); ALKALINE PHOSPHATASE 52 U/L (46-116); ALT/SGPT 27 U/L (7.0-40); AST/SGOT 19 U/L (<34); BILIRUBIN,TOTAL 0.3 MG/DL (0.3-1.2); BLOOD UREA NITROGEN 13 MG/DL (9-23); CALCIUM LEVEL 8.6 MG/DL (8.3-10.6); CARBON DIOXIDE LEVEL 27 MMOL/L (20-31); CHLORIDE LEVEL 104 MMOL/L (98-107); CHOLESTEROL LEVEL 158 MG/DL (<200); CHOLESTEROL RISK RATIO 2.94 (<5); CREATININE FOR GFR 0.74 MG/DL (0.55-1.30); GLOMERULAR FILTRATION RATE > 60.0 (>45); GLUCOSE, FASTING 151 MG/DL (74-106); HDL CHOLESTEROL 53.7 MG/DL (>40); LDL CHOLESTEROL 78.3 MG/DL (<100); NON-HDL-C 104.3 MG/DL; POTASSIUM SERUM 4.1 MMOL/L (3.5-5.1); SODIUM LEVEL 140 MMOL/L (136-145); TOTAL PROTEIN 6.4 G/DL (5.7-8.2); TRIGLYCERIDES LEVEL 130 MG/DL (<150)
== END ==
LOC: M LAB 06:50
PROVIDERS: ATTEND Nurse Practitioner Family
DX: E78.5 Hyperlipidemia, unspecified (principal); E11.9 Type 2 diabetes mellitus without complications

== ENCOUNTER → 2022-12-27 | Outpatient (REF) | payer MEDICAID, MEDICARE | LOC: M SFHCPLAZ 16:51 | PROVIDERS: ATTEND Nurse Practitioner Family | DX: Z79.891 Long term (current) use of opiate analgesic (principal) ==

== ENCOUNTER → 2023-07-17 | Outpatient (CLI) | payer MEDICARE, MEDICAID ==
[2023-07-17 10:36] LABS: CREATININE, URINE 86.2 MG/DL; MAU/CREAT RATIO 5.8 MCG/MG (0.0-30.0)
[2023-07-17 10:39] LABS: ALBUMIN 3.8 G/DL (3.2-5.2); ALKALINE PHOSPHATASE 133 U/L (46-116); ALT/SGPT 71 U/L (7.0-40); AST/SGOT 39 U/L (<34); BILIRUBIN,TOTAL 0.4 MG/DL (0.3-1.2); BLOOD UREA NITROGEN 16 MG/DL (9-23); CALCIUM LEVEL 9.7 MG/DL (8.3-10.6); CARBON DIOXIDE LEVEL 26 MMOL/L (20-31); CHLORIDE LEVEL 103 MMOL/L (98-107); CHOLESTEROL LEVEL 189 MG/DL (<200); CHOLESTEROL RISK RATIO 3.35 (<5); CREATININE FOR GFR 0.72 MG/DL (0.55-1.30); GLOMERULAR FILTRATION RATE > 60.0 (>45); GLUCOSE, FASTING 172 MG/DL (74-106); HDL CHOLESTEROL 56.4 MG/DL (>40); NON-HDL-C 132.6 MG/DL; POTASSIUM SERUM 4.3 MMOL/L (3.5-5.1); SODIUM LEVEL 137 MMOL/L (136-145); THYROID STIMULATING HORMONE 26.508 uIU/ML (0.55-4.78); TOTAL PROTEIN 6.7 G/DL (5.7-8.2); TRIGLYCERIDES LEVEL 208 MG/DL (<150)
[2023-07-17 10:40] LABS: FREE T4 0.94 NG/DL (0.89-1.76)
[2023-07-17 10:41] LABS: TOTAL 25(OH) VITAMIN D 33.5 NG/ML (20.0-100.0)
[2023-07-17 10:49] LABS: BASO # 0.1 10^3/uL (0.0-0.2); BASO % 0.9 % (0.0-1.0); EOS # 0.1 10^3/uL (0.0-0.5); EOS % 1.4 % (0.0-3.0); HEMATOCRIT 42.7 % (36.0-47.0); HEMOGLOBIN 14.2 g/dl (12.0-15.5); HEMOGLOBIN A1c 7.6 % (4.0-6.0); LYMPH # 1.5 10^3/uL (1.5-5.0); LYMPH % 23.6 % (24.0-44.0); MEAN CORPUSCULAR HEMOGLOBIN 31.8 pg (27.0-33.0); MEAN CORPUSCULAR HGB CONC 33.3 g/dl (32.0-36.5); MEAN CORPUSCULAR VOLUME 95.5 fl (80.0-96.0); MONO # 0.6 10^3/uL (0.0-0.8); MONO % 8.7 % (2.0-8.0); NEUTROPHILS # 4.2 10^3/uL (1.5-8.5); NEUTROPHILS % 65.1 % (36.0-66.0); PLATELET COUNT, AUTOMATED 173 10^3/uL (150-450); RED BLOOD COUNT 4.47 10^6/uL (4.00-5.40); WHITE BLOOD COUNT 6.4 10^3/uL (4.0-10.0)
== END ==
LOC: M LAB 09:22
PROVIDERS: ATTEND Nurse Practitioner Family
DX: E89.0 Postprocedural hypothyroidism (principal); E78.5 Hyperlipidemia, unspecified; E55.9 Vitamin D deficiency, unspecified; I10 Essential (primary) hypertension; E11.9 Type 2 diabetes mellitus without complications

== ENCOUNTER → 2023-10-21 | Outpatient (CLI) | payer MEDICARE, MEDICAID ==
[2023-10-21 15:50] LABS: BASO # 0.1 10^3/uL (0.0-0.2); BASO % 0.7 % (0.0-1.0); EOS # 0.1 10^3/uL (0.0-0.5); EOS % 1.8 % (0.0-3.0); HEMATOCRIT 43.4 % (36.0-47.0); HEMOGLOBIN 14.6 g/dl (12.0-15.5); LYMPH # 1.7 10^3/uL (1.5-5.0); LYMPH % 22.3 % (24.0-44.0); MEAN CORPUSCULAR HEMOGLOBIN 32.2 pg (27.0-33.0); MEAN CORPUSCULAR HGB CONC 33.6 g/dl (32.0-36.5); MEAN CORPUSCULAR VOLUME 95.6 fl (80.0-96.0); MONO # 0.7 10^3/uL (0.0-0.8); MONO % 8.5 % (2.0-8.0); NEUTROPHILS # 5.1 10^3/uL (1.5-8.5); NEUTROPHILS % 66.3 % (36.0-66.0); PLATELET COUNT, AUTOMATED 178 10^3/uL (150-450); RED BLOOD COUNT 4.54 10^6/uL (4.00-5.40); WHITE BLOOD COUNT 7.7 10^3/uL (4.0-10.0)
[2023-10-21 16:11] LABS: ALKALINE PHOSPHATASE 116 U/L (46-116); ALT/SGPT 71 U/L (7.0-40); AST/SGOT 36 U/L (<34); BILIRUBIN,TOTAL 0.5 MG/DL (0.3-1.2); BLOOD UREA NITROGEN 12 MG/DL (9-23); CALCIUM LEVEL 9.6 MG/DL (8.3-10.6); CARBON DIOXIDE LEVEL 26 MMOL/L (20-31); CHLORIDE LEVEL 104 MMOL/L (98-107); CREATININE FOR GFR 0.79 MG/DL (0.55-1.30); GLOMERULAR FILTRATION RATE > 60.0 (>45); GLUCOSE, FASTING 133 MG/DL (74-106); POTASSIUM SERUM 4.2 MMOL/L (3.5-5.1); SODIUM LEVEL 138 MMOL/L (136-145)
[2023-10-21 16:12] LABS: FREE T4 1.19 NG/DL (0.89-1.76)
[2023-10-21 16:13] LABS: THYROID STIMULATING HORMONE 38.281 uIU/ML (0.55-4.78)
[2023-10-21 16:14] LABS: HEMOGLOBIN A1c 7.1 % (4.0-6.0)
[2023-10-26 16:06] LABS: AMPHETAMINE SCREEN, URINE Negative ng/mL (Cutoff=1000); BARBITURATES SCREEN, URINE Negative ng/mL (Cutoff=200); BENZODIAZEPINES, URINE SCREEN Negative ng/mL (Cutoff=200); CANNABINOID SCREEN, URINE Negative ng/mL (Cutoff=20); COCAINE SCREEN, URINE Negative ng/mL (Cutoff=300); CODEINE, URINE Negative (Cutoff=100); CREATININE, URINE 94.5 mg/dL (20.0-300.0); HYDROCODONE CONFIRM, URINE 1428 ng/mL (Cutoff=100); HYDROCODONE, URINE Positive (.); HYDROMORPHONE CONFIRM, URINE 159 ng/mL (Cutoff=100); HYDROMORPHONE, URINE Positive (.); METHADONE, URINE SCREEN Negative ng/mL (Cutoff=300); MORPHINE, URINE Negative (Cutoff=100); OPIATE SCREEN, URINE See Final Results ng/mL (Cutoff=300); OPIATES, URINE Positive ng/mL (Cutoff=300); OXYCODONE, SCREEN, URINE Negative ng/mL (Cutoff=100); PCP SCREEN, URINE Negative ng/mL (Cutoff=25); SPECIFIC GRAVITY, URINE 1.011 (.); pH, URINE 5.4 (4.5-8.9)
[2023-10-30 15:12] LABS: ALPHA 2-MACROGLOBULINS,QN 237 mg/dL (106-279); ALT (SGPT) P5P 47 U/L (6-29); APOLIPOPROTEIN A-1 171 mg/dL (101-198); BILIRUBIN, TOTAL 0.4 mg/dL (0.2-1.2); FIBROSIS SCORE 0.47; FIBROSIS STAGE MINIMAL FIBROSIS (F0); GGT 362 U/L (3-65); HAPTOGLOBIN 137 mg/dL (43-212); NECROINFLAM ACT GRADE MINIMAL ACTIVITY (A0); NECROINFLAM ACT SCORE 0.32
== END ==
LOC: M PLALAB 11:56
PROVIDERS: ATTEND Nurse Practitioner Family
DX: I10 Essential (primary) hypertension (principal); F11.90 Opioid use, unspecified, uncomplicated; E11.9 Type 2 diabetes mellitus without complications; E89.0 Postprocedural hypothyroidism; E55.9 Vitamin D deficiency, unspecified; Z79.899 Other long term (current) drug therapy

== ENCOUNTER → 2023-11-27 | Outpatient (CLI) | payer MEDICARE, MEDICAID | LOC: M RAD 06:20 | PROVIDERS: ATTEND Nurse Practitioner Family | DX: R74.8 Abnormal levels of other serum enzymes (principal) ==

== ENCOUNTER → 2023-12-05 | Outpatient (CLI) | payer MEDICARE, MEDICAID | LOC: M WHC 07:23 | PROVIDERS: ATTEND Nurse Practitioner Family | DX: Z12.31 Encounter for screening mammogram for malignant neoplasm of breast (principal); M85.80 Other specified disorders of bone density and structure, unspecified site ==

== ENCOUNTER → 2024-06-22 | Outpatient (CLI) | payer MEDICARE, MEDICAID ==
[2024-06-22 13:50] LABS: BASO # 0.1 10^3/uL (0.0-0.2); BASO % 0.9 % (0.0-1.0); EOS # 0.1 10^3/uL (0.0-0.5); HEMATOCRIT 44.5 % (36.0-47.0); HEMOGLOBIN 14.8 g/dl (12.0-15.5); LYMPH # 2.3 10^3/uL (1.5-5.0); LYMPH % 32.6 % (24.0-44.0); MEAN CORPUSCULAR HGB CONC 33.3 g/dl (32.0-36.5); MEAN CORPUSCULAR VOLUME 93.1 fl (80.0-96.0); MONO # 0.6 10^3/uL (0.0-0.8); MONO % 8.3 % (2.0-8.0); NEUTROPHILS # 3.9 10^3/uL (1.5-8.5); NEUTROPHILS % 55.6 % (36.0-66.0); PLATELET COUNT, AUTOMATED 188 10^3/uL (150-450); RED BLOOD COUNT 4.78 10^6/uL (4.00-5.40)
[2024-06-22 14:26] LABS: BILIRUBIN,TOTAL 0.5 MG/DL (0.3-1.2); CALCIUM LEVEL 9.3 MG/DL (8.3-10.6); CHOLESTEROL RISK RATIO 3.6 (<5); FREE T4 1.39 NG/DL (0.89-1.76); GLOMERULAR FILTRATION RATE 61.8 (>45); HDL CHOLESTEROL 57.7 MG/DL (>40); LDL CHOLESTEROL 112.3 MG/DL (<100); NON-HDL-C 150.3 MG/DL; POTASSIUM SERUM 4.5 MMOL/L (3.5-5.1); TOTAL PROTEIN 6.8 G/DL (5.7-8.2)
[2024-06-22 14:27] LABS: THYROID STIMULATING HORMONE 2.726 uIU/ML (0.55-4.78)
[2024-06-22 14:33] LABS: CREATININE, URINE 325.4 MG/DL; MAU/CREAT RATIO 3.9 MCG/MG (0.0-30.0)
== END ==
LOC: M LAB 12:26
PROVIDERS: ATTEND Nurse Practitioner Family
DX: E55.9 Vitamin D deficiency, unspecified (principal); I10 Essential (primary) hypertension; E78.5 Hyperlipidemia, unspecified; E89.0 Postprocedural hypothyroidism; E11.9 Type 2 diabetes mellitus without complications

== ENCOUNTER → 2024-12-22 | Outpatient (CLI) | payer MEDICARE, MEDICAID | LOC: M WHC 09:14 | PROVIDERS: ATTEND Nurse Practitioner Family | DX: N63.22 Unspecified lump in the left breast, upper inner quadrant (principal); R92.313 Mammographic fatty tissue density, bilateral breasts; D24.2 Benign neoplasm of left breast | CPT/HCPCS: 76642; 77066; G0279 ==

== ENCOUNTER → 2025-01-21 | Outpatient (CLI) | payer MEDICARE, MEDICAID ==
[2025-01-21 13:16] LABS: BASO # 0.1 10^3/uL (0.0-0.2); BASO % 0.7 % (0.0-1.0); EOS # 0.1 10^3/uL (0.0-0.5); EOS % 1.4 % (0.0-3.0); LYMPH # 2.2 10^3/uL (1.5-5.0); LYMPH % 29.9 % (24.0-44.0); MONO # 0.5 10^3/uL (0.0-0.8); MONO % 7.1 % (2.0-8.0); NEUTROPHILS # 4.4 10^3/uL (1.5-8.5); NEUTROPHILS % 60.6 % (36.0-66.0); PLATELET COUNT, AUTOMATED 174 10^3/uL (150-450)
[2025-01-21 13:29] LABS: ESTIMATED AVERAGE GLUCOSE 123.0 MG/DL (60-110)
[2025-01-21 13:34] LABS: CREATININE, URINE 174.8 MG/DL; MALB URINE SIEMENS 8.0 MG/L; MAU/CREAT RATIO 4.5 MCG/MG (0.0-30.0)
[2025-01-21 13:37] LABS: ALT/SGPT 43 U/L (7.0-40); AST/SGOT 29 U/L (<34); CALCIUM LEVEL 9.1 MG/DL (8.3-10.6); CARBON DIOXIDE LEVEL 28 MMOL/L (20-31); CHLORIDE LEVEL 104 MMOL/L (98-107); CHOLESTEROL LEVEL 221 MG/DL (<200); CHOLESTEROL RISK RATIO 3.10 (<5); CREATININE FOR GFR 0.71 MG/DL (0.55-1.30); GLOMERULAR FILTRATION RATE > 90.0 (>45); LDL CHOLESTEROL 118.7 MG/DL (<100); MAGNESIUM LEVEL 1.9 MG/DL (1.8-2.4); NON-HDL-C 149.9 MG/DL; POTASSIUM SERUM 4.3 MMOL/L (3.5-5.1); SODIUM LEVEL 140 MMOL/L (136-145); TRIGLYCERIDES LEVEL 156 MG/DL (<150)
[2025-01-21 13:38] LABS: FREE T4 1.30 NG/DL (0.89-1.76)
== END ==
LOC: M LAB 11:59
PROVIDERS: ATTEND Nurse Practitioner Family
DX: E55.9 Vitamin D deficiency, unspecified (principal); I10 Essential (primary) hypertension; E78.5 Hyperlipidemia, unspecified; Z79.899 Other long term (current) drug therapy